=== PATIENT | female | born 1960 | race Caucasian/White ===

== ENCOUNTER 2017-10-03 03:04 | Observation (INO) ==
[2017-10-03] MEDS ORDERED: 0.9 % Sodium Chloride 1,000 ML IVC ONE (03:12)
--- NOTE | 2017-10-03 03:28 | Emergency Department Note ---
Disposition Clinical Impression: Elevated LFTs, History of cirrhosis of liver, Tachycardia with heart rate 100- 120 beats per minute, Dehydration, Acute electrocardiogram changes Alcohol intoxication Qualifiers: Complication of substance-induced condition: with unspecified complication Qualified Code(s): F10.929 - Alcohol use, unspecified with intoxication, unspecified Disposition: Admitted As Inpatient Condition: Undetermined General Adult HPI - General Chief complaint: ED General Medical Stated complaint: multi complaints Time Seen by Provider: 10/03/17 03:12 Source: patient, EMS Mode of arrival: EMS Limitations: altered mental status Nursing Notes Reviewed: Yes Vital Signs Reviewed: Yes - History of Present Illness Pt Subjective Complaint: ear pain, weak all over, cough, not able to get medications Onset (ago): week(s) Location: other (Right ear) Radiation: non-radiation Pain Severity: moderate, severe Quality: stabbing, sharp Consistency: constant Improves with: nothing Worsens with: nothing Associated symptoms: Reports: malaise. Denies: confusion, chest pain, cough, diaphoresis, fever/chills, headaches, loss of appetite, nausea/vomiting, rash, seizure, shortness of breath, syncope, weakness Treatments Prior to Arrival: none - Related Data Home Medications Medication Instructions Recorded Confirmed Estrogen,Con/M-Progest Acet 1 each PO DAILY 09/29/15 09/29/15 [Prempro 0.45-1.5 mg Tablet] Metoclopramide [Reglan] 10 mg PO TID 09/29/15 09/29/15 Rabeprazole Sodium [Aciphex] 20 mg PO DAILY 09/29/15 09/29/15 Sertraline [Zoloft] 200 mg PO DAILY 09/29/15 09/29/15 Previous Rx's Medication Instructions Recorded Lactulose 20 gm PO BID 30 Days mls 10/10/15 LevETIRAcetam [Keppra] 500 mg PO BID #60 tablet 10/10/15 Oxycodone HCl [Oxaydo] 5 mg PO Q8H PRN #30 tablet.orl 10/10/15 Prednisolone Sod Phosphate 10 mg PO DAILY #21 tab.rapdis 10/10/15 [Orapred Odt] Rifaximin [Xifaxan] 400 mg PO TID #90 tablet 10/10/15 Allergies Allergy/AdvReac Type Severity Reaction Status Date / Time No Known Allergies Allergy Verified 09/29/15 07:55 All systems ED: reviewed and negative except as stated. Review of Systems: As Per HPI Constitutional: Reports: fever ("I am burning up inside." Per patient). Denies : chills, weakness, weight change, night sweats Eyes: Denies: eye pain, eye discharge, vision change ENT ED: Reports: as per HPI, ear pain. Denies: throat pain, dental pain, hearing loss, epistaxis, congestion, dysphagia Cardiovascular: Denies: chest pain, palpitations, dyspnea on exertion, orthopnea , edema, syncope, paroxysmal nocturnal dyspnea Respiratory: Denies: cough, dyspnea, wheezes, hemoptysis, stridor, sputum production Gastrointestinal: Denies: abdominal pain, nausea, vomiting, diarrhea, constipation, hematemesis, melena, hematochezia, other Genitourinary: Denies: urgency, dysuria, frequency Musculoskeletal: Denies: back pain, neck pain, joint swelling Integumentary: Denies: rash, abrasion, lesions Neurological: Denies: headache, weakness, numbness, paresthesias, vertigo Hematological/Lymphatic: Denies: easy bleeding, easy bruising, lymphadenopathy Past Medical History - Past Medical History Attestation: Yes The following information was validated with the patient. 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 Absent: scleral icterus, conjunctival injection, nystagmus, miosis, mydriasis, periorbital swelling, periorbital tenderness - ENT ENT exam: mucous membranes dry - Neck Neck exam: Present: normal inspection, full ROM, trachea midline. Absent: tenderness, meningismus, lymphadenopathy - Chest Chest inspection: Present: normal inspection, symmetric chest wall rise - Respiratory Respiratory exam: Present: normal lung sounds bilaterally. Absent: respiratory distress, wheezes, stridor - Cardiovascular Cardiovascular exam: Present: normal rhythm, tachycardia, normal heart sounds - Abdominal Exam Abdominal exam: Present: soft, Non-Tender, normal bowel sounds. Absent: distention, guarding, rebound, rigidity, organomegaly, mass, pulsatile mass - Extremities Exam Extremities exam: Present: full ROM, normal capillary refill. Absent: tenderness - Back Exam Back exam: Present: normal inspection, full ROM. Absent: tenderness - Neurological Exam Neurological exam: Present: alert, oriented X3, CN II-XII intact, normal gait. Absent: motor sensory deficit - Psychiatric Psychiatric exam: Present: normal affect, normal mood - Skin Skin exam: Present: warm, dry, intact, normal color, rash - Expanded Skin Exam Type of lesion: Present: rash (Diffusely scattered hyperpigmented circular dark lesions on the legs bilaterally). Absent: abscess Distribution: LLE, RLE Description: Present: size (Average size. The lesion is .05cm), macular. Absent: tenderness, erythematous, swelling, papular, vesicular, blisters, confluent, bullous, petechial, purpuric, urticarial, crusting, discharge, fluctuant, indurated Course Course Narrative: Patient presents from home by squad for evaluation of myriad complaints. She describes lesions on her legs (Chronic but worse), right ear pain, feeling "feverish", nauseated, decreased appetite, and out of all medications for a month. She says, "I'm just done." When asked if she means she wants to she says no. She denies SI currently or history of. She states that she just doesn' t want to have to take medications any more. She is slow to respond and is easily agitated. She seems mildly confused. She is afebrile with no meningeal signs. She has a slight effusion of right middle ear. She has a wet cough but clear breath sounds, normal sats, normal resp rate, and no peripheral edema. Heart rate is tachycardic. No mumur. No c/o chest pain, HEIDI or WEEMS. Abdomen is soft and non-tender with hepatomegally. She ambulates to and from the bathroom without assistance or complications. CT of the head, CXR, EKG, labs and pain meds ordered. CT shows no mass or bleed. She has sinusitis. CXR is normal per rad. EKG shows new t-wave inversions and 1mm of ST depression. These are new c/w 2014. Patient has no chest pain. Troponin is normal. LFT's are elevated. Urine has 80 of ketones. ETOH is >170. Drug screen is positive for BZD. Patient was prescribed Valium and Oxycodone by a single practice group for the past year. 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 Some of her symptoms could be due to withdrawal. Given the patient's EKG changes, multiple comorbidities and dehydration, we feel that admission for observation and treatment are indicated. She has been seen by Dr. Pisano. He agrees with the assessment and plan. Medical Decision Making - Medical Records Medical records reviewed: Yes I reviewed the patient's medical records. - Lab Data Lab results reviewed: Yes I reviewed the patient's lab results. Lab results narrative: Laboratory Last Values WBC 7.8 K/mcL (4.3-11.1) 10/03/17 03:50 RBC 4.20 M/mcL (3.82-4.97) 10/03/17 03:50 Hgb 13.3 g/dL (11.5-15.4) 10/03/17 03:50 Hct 39.7 % (35.3-44.9) 10/03/17 03:50 MCV 94.5 fL (83.0-100.0) 10/03/17 03:50 MCH 31.7 pg (28.0-33.3) 10/03/17 03:50 MCHC 33.5 g/dL (31.6-35.5) 10/03/17 03:50 RDW 13.3 % (11.5-14.5) 10/03/17 03:50 Plt Count 185 K/mcL (140-400) 10/03/17 03:50 MPV 11.1 fL (9.4-12.4) 10/03/17 03:50 Immature Gran % 0.5 % (0-4) 10/03/17 03:50 Seg Neutrophils % 52.8 % 10/03/17 03:50 Lymphocytes % 39.7 % 10/03/17 03:50 Monocytes % 5.5 % 10/03/17 03:50 Eosinophils % 0.6 % 10/03/17 03:50 Basophils % 0.9 % 10/03/17 03:50 Neutrophils # 4.1 K/mcL (1.6-8.9) 10/03/17 03:50 Lymphocytes # 3.1 K/mcL (0.6-4.6) 10/03/17 03:50 Monocytes # 0.4 K/mcL (0.0-1.3) 10/03/17 03:50 Eosinophils # 0.1 K/mcL (0.0-0.6) 10/03/17 03:50 Basophils # 0.1 K/mcL (0.0-0.2) 10/03/17 03:50 PT 11.0 Seconds (9.4-12.1) 10/03/17 03:50 INR 1.0 10/03/17 03:50 APTT 28.9 Seconds (26.0-36.0) 10/03/17 03:50 Sodium 138 mEq/L (136-145) 10/03/17 04:12 Potassium 3.9 mEq/L (3.5-4.5) 10/03/17 04:12 Chloride 97 mEq/L (98-109) L 10/03/17 04:12 Carbon Dioxide 13 mEq/L (19-29) L 10/03/17 04:12 BUN 18 mg/dL (7-20) 10/03/17 04:12 Creatinine 0.63 mg/dL (0.57-1.11) 10/03/17 04:12 Est GFR ( Amer) > 60 (> 60) 10/03/17 04:12 Est GFR (Non-Af Amer) > 60 (> 60) 10/03/17 04:12 BUN/Creatinine Ratio 29 (6-26) H 10/03/17 04:12 Glucose 78 mg/dL (70-99) 10/03/17 04:12 POC Glucose 83 (58-89) 10/03/17 03:31 Calculated Osmolality 287 (280-300) 10/03/17 04:12 Calcium 9.0 mg/dL (8.6-10.8) 10/03/17 04:12 Total Bilirubin 1.9 mg/dL (0.2-1.2) H 10/03/17 04:12 Direct Bilirubin 1.0 mg/dL (0.0-0.5) H 10/03/17 04:12 Indirect Bilirubin 0.9 mg/dL (0.0-1.2) 10/03/17 04:12 AST 75 Units/L (5-34) H 10/03/17 04:12 ALT 36 Units/L (0-55) 10/03/17 04:12 Alkaline Phosphatase 174 Units/L (38-126) H 10/03/17 04:12 Ammonia 29 mcmol/L (18-72) 10/03/17 04:12 Troponin I 0.01 ng/mL (0-0.03) 10/03/17 04:12 Serum Total Protein 7.9 g/dL (6.0-8.3) 10/03/17 04:12 Albumin 4.2 g/dL (3.5-5.0) 10/03/17 04:12 Globulin 3.7 g/dL (2.4-3.5) H 10/03/17 04:12 Albumin/Globulin Ratio 1.1 (1.1-2.2) 10/03/17 04:12 TSH 0.414 mcIU/mL (0.350-4.840) 10/03/17 04:12 Urine Color Dark Yellow (Yellow) 10/03/17 03:40 Urine Clarity Clear (Clear) 10/03/17 03:40 Urine pH 6.0 pH Units (5.0-8.0) 10/03/17 03:40 Ur Specific [place] 1.030 (1.010-1.025) H 10/03/17 03:40 Urine Protein 100 mg/dL (Neg-Trace) H 10/03/17 03:40 Urine Glucose (UA) Normal mg/dL (Normal) 10/03/17 03:40 Urine Ketones 80 mg/dL (Negative) H 10/03/17 03:40 Urine Blood Negative (Negative) 10/03/17 03:40 Urine Nitrite Negative (Negative) 10/03/17 03:40 Urine Bilirubin Negative (Negative) 10/03/17 03:40 Urine Urobilinogen Normal mg/dL (Normal) 10/03/17 03:40 Ur Leukocyte Esterase Negative (Negative) 10/03/17 03:40 Urine Microscopic RBC 0-3 per hpf (0-3) 10/03/17 03:40 Urine Microscopic WBC 0-3 per hpf (0-3) 10/03/17 03:40 Ur Squamous Epith Cells Few per lpf (None-Few) 10/03/17 03:40 Urine Bacteria None Seen per hpf (None-Few) 10/03/17 03:40 Hyaline Casts None Seen per lpf (None-Few) 10/03/17 03:40 Ur Culture Indicated? NO (NO) 10/03/17 03:40 Urine Opiates Screen Negative ng/mL (Qurkkf=539) 10/03/17 03:40 Ur Barbiturates Screen Negative ng/mL (Dbklja=949) 10/03/17 03:40 Ur Phencyclidine Scrn Negative ng/mL (Cutoff=25) 10/03/17 03:40 Ur Amphetamines Screen Negative ng/mL (Spfttr=2162) 10/03/17 03:40 U Benzodiazepines Scrn Positive ng/mL (Nyjxzs=930) H 10/03/17 03:40 Urine Cocaine Screen Negative ng/mL (Cutoff= 300) 10/03/17 03:40 U Marijuana (THC) Screen Negative ng/mL (Cutoff = 50) 10/03/17 03:40 Ethyl Alcohol 177 mg/dL (0-10) H 10/03/17 04:12 - Radiology Data Radiology results reviewed: Yes I reviewed the patient's radiology results. Chest X-Ray 10/03/17 03:12 IMPRESSION: No acute disease. D/ / Aubrey Pierce MD / Aubrey Pierce MD Interpreting Provider: Aubrey Pierce MD Head CT 10/03/17 03:29 IMPRESSION: No acute intracranial abnormality. Right sphenoid and ethmoid sinus disease. D/ / Aubrey Pierce MD / Aubrey Pierce MD Interpreting Provider: Aubrey Pierce MD - EKG Data EKG #1 EKG attestation: Yes I reviewed and interpreted this EKG. EKG shows normal: sinus rhythm Rate: tachycardia Rhythm: NSR [place]/QRS: normal T wave inversions noted in: II, III, aVF, v3, v4, v5, v6 When compared to previous EKG there are: changes noted Interpretation: nonspecific ST-T wave changes
[2017-10-03] MEDS ORDERED: *HR* OxyCODONE Immed Rel 5 MG TABLET PO ONE (03:32)
[2017-10-03 03:50] LABS: Bilirubin,Urine Negative (Negative); Blood,Urine Negative (Negative); Clarity,Urine Clear (Clear); Color,Urine Dark Yellow (Yellow); Glucose,Urine (UA) Normal (Normal); Ketones,Urine 80 mg/dL (Negative); Leukocyte Esterase,Urine Negative (Negative); Nitrite,Urine Negative (Negative); Protein,Urine 100 mg/dL (Neg-Trace); Urobilinogen,Urine Normal (Normal)
[2017-10-03 03:51] LABS: Bacteria,Urine None Seen per hpf (None-Few); Hyaline Casts,Urine None Seen per lpf (None-Few); RBC,Urine 0-3 per hpf (0-3); Squamous Epithelial Cell,Urine Few per lpf (None-Few); WBC,Urine 0-3 per hpf (0-3)
[2017-10-03 03:56] LABS: Amphetamine Screen,Urine Negative ng/mL (Cutoff=1000); Barbiturate Screen,Urine Negative ng/mL (Cutoff=200); Benzodiazepines Screen,Urine Positive ng/mL (Cutoff=200); Cannabinoid Screen,Urine Negative ng/mL (Cutoff = 50); Cocaine Screen,Urine Negative ng/mL (Cutoff= 300); Opiate Screen,Urine Negative ng/mL (Cutoff=300); Phencyclidine Screen,Urine Negative ng/mL (Cutoff=25)
[2017-10-03 04:10] LABS: Basophils # 0.1 K/mcL (0.0-0.2); Basophils % 0.9 %; Eosinophils # 0.1 K/mcL (0.0-0.6); Eosinophils % 0.6 %; Hematocrit 39.7 % (35.3-44.9); Hemoglobin 13.3 g/dL (11.5-15.4); Immature Granulocytes % 0.5 % (0-4); Lymphocytes # 3.1 K/mcL (0.6-4.6); Lymphocytes % 39.7 %; Mean Corpuscular HGB Conc 33.5 g/dL (31.6-35.5); Mean Corpuscular Hemoglobin 31.7 pg (28.0-33.3); Mean Corpuscular Volume 94.5 fL (83.0-100.0); Mean Platelet Volume 11.1 fL (9.4-12.4); Monocytes # 0.4 K/mcL (0.0-1.3); Monocytes % 5.5 %; Neutrophils # 4.1 K/mcL (1.6-8.9); Platelet Count 185 K/mcL (140-400); Red Cell Distribution Width 13.3 % (11.5-14.5); Segmented Neutrophils % 52.8 %
[2017-10-03 04:19] LABS: Activated Partial Thrombo Time 28.9 Seconds (26.0-36.0)
[2017-10-03 04:37] LABS: Alanine Aminotransferase 36 Units/L (0-55); Albumin 4.2 g/dL (3.5-5.0); Albumin/Globulin Ratio 1.1 (1.1-2.2); Alkaline Phosphatase 174 Units/L (38-126); Aspartate Amino Transferase 75 Units/L (5-34); BUN/Creatinine Ratio 29 (6-26); Bilirubin,Indirect 0.9 mg/dL (0.0-1.2); Bilirubin,Total 1.9 mg/dL (0.2-1.2); Blood Urea Nitrogen 18 mg/dL (7-20); Carbon Dioxide 13 mEq/L (19-29); Chloride 97 mEq/L (98-109); Ethanol 177 mg/dL (0-10); Globulin 3.7 g/dL (2.4-3.5); Glucose 78 mg/dL (70-99); Osmolality,Calculated 287 (280-300); Potassium 3.9 mEq/L (3.5-4.5); Sodium 138 mEq/L (136-145); Total Protein 7.9 g/dL (6.0-8.3); eGFR For African Americans > 60 (> 60); eGFR For Non-African Americans > 60 (> 60)
[2017-10-03 04:58] LABS: Thyroid Stimulating Hormone 0.414 mcIU/mL (0.350-4.840)
[2017-10-03] MEDS ORDERED: diazePAM 10 MG TABLET PO ONE (06:12)
[2017-10-03] MEDS ORDERED: *HR* LORazepam 2 MG/ML VIAL IVP ONE (10:10)
[2017-10-03] MEDS ORDERED: Ketorolac 30 MG/ML VIAL IVP ONE (10:45)
[2017-10-03] MEDS ORDERED: Naloxone 0.4 MG/ML INJ IVP PRN (13:04)
--- NOTE | 2017-10-03 13:17 | Internal Med History&Physical ---
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 Qualifiers: Qualified Code(s): F10.929 - Alcohol use, unspecified with intoxication, unspecified (2) Altered sensation, foot Current visit: Yes Status: Acute -Suspect alcohol related; neuropathy (vitamin B12/folate deficiency) -Will consult physical therapy and appreciate recommendations. (3) History of cirrhosis of liver Current visit: Yes Status: Acute -Elevated transaminases secondary to alcoholic cirrhosis. (4) DVT prophylaxis Current visit: No Status: Acute -Subcutaneous heparin. Internal Medicine - H&P: HPI Chief complaint: Lower extremity altered sensation Admitted From: Home Plans for Post Hospital Care: Home History of present illness: Patient is a 57-year-old female with past medical history significant for liver cirrhosis secondary to alcohol dependence/abuse, GERD, COPD and seizures who presents to the ER on 10/03/17 with alcohol intoxication/withdrawal symptoms. Patient reports of having altered sensation in her bilateral lower extremities for the last several months which is constant with no provoking or relieving factors. Patient reports this makes ambulation difficult. Patient reports a negative workup by primary care provider. Patient does report drinking a half a pint of whiskey per day for the last couple years. In the ER, urine tox showed elevated alcohol levels and positive for benzos. Patient will be admitted to the medical surgical floor for alcohol withdrawal. Past Med Surg Social Fam HX - Past Medical History Medical history: arthritis, cirrhosis, COPD, GERD, GI bleed, liver disease, osteoporosis, seizures, other Psychiatric history: anxiety, depression - Past Surgical History Surgical History: breast surgery - Social History Smoking Status: Current every day smoker Packs per day: 1/2 Smokeless Tobacco Status: No Alcohol use: heavy Drug use: prescription drug abuse - Family History Mother Adopted: No Living Status: Still Living Hx Family Cardiac Disorders: Yes Internal Medicine - H&P: Meds No Known Home Drugs 10/03/17 [History] 3 Allergy/AdvReac Type Severity Reaction Status Date / Time No Known Allergies Allergy Verified 09/29/15 07:55 All Systems PM: A 10-system review of systems was performed and is negative for pertinent findings except as documented above in the HPI. - Constitutional Vitals: Temp Pulse Resp BP Pulse Ox 97.6 F 94 17 118/72 98 10/03/17 12:20 10/03/17 12:20 10/03/17 12:20 10/03/17 12:20 10/03/17 12:20 General appearance: Present: A&O X 3, no acute distress - Eye Eye exam: Present: normal appearance - ENT ENT exam: Present: mucous membranes dry - Respiratory Respiratory exam: Present: CTAB. Absent: accessory muscle use, rales, rhonchi, wheezes - Cardiovascular Cardiovascular exam: Present: RRR, +S1, +S2. Absent: diastolic murmur, gallop, rubs, systolic murmur - GI/Abdominal GI/Abdominal exam: Present: normal bowel sounds, soft, no peritoneal signs. Absent: distended, tenderness - Extremities Exam Extremities exam: Absent: pedal edema - Neurological Exam Neurological exam: Present: oriented X3 - Psychiatric Psychiatric exam: Present: normal mood - Skin Skin exam: Present: normal color Internal Med - H&P Results - Labs CBC & Chem 7: 10/03/17 03:50 10/03/17 04:12
[2017-10-03] MEDS: *HR* Heparin 5,000 UNIT/ML VIAL SQ SCH ×2 (14:12→21:49)
[2017-10-03] MEDS ORDERED: *HR* Promethazine 25 MG/ML VIAL IVP PRN (15:10)
[2017-10-03] MEDS ORDERED: *HR* LORazepam 2 MG/ML VIAL IVP PRN ×2 (15:10)
[2017-10-03] MEDS: Ketorolac 30 MG/ML VIAL IVP PRN (17:06)
[2017-10-03] MEDS: *HR* LORazepam 2 MG/ML VIAL IVP PRN (17:06)
[2017-10-04] MEDS: *HR* LORazepam 2 MG/ML VIAL IVP PRN ×2 (00:13→04:13)
[2017-10-04] MEDS: Ketorolac 30 MG/ML VIAL IVP PRN (02:13)
[2017-10-04] MEDS: *HR* Heparin 5,000 UNIT/ML VIAL SQ SCH ×2 (04:57→13:30)
[2017-10-04 06:17] LABS: Basophils % 0.3 %; Eosinophils # 0.1 K/mcL (0.0-0.6); Eosinophils % 2.1 %; Hematocrit 28.7 % (35.3-44.9); Immature Granulocytes % 0.6 % (0-4); Lymphocytes # 1.3 K/mcL (0.6-4.6); Lymphocytes % 37.8 %; Mean Corpuscular HGB Conc 34.8 g/dL (31.6-35.5); Mean Corpuscular Hemoglobin 32.3 pg (28.0-33.3); Mean Corpuscular Volume 92.6 fL (83.0-100.0); Monocytes # 0.3 K/mcL (0.0-1.3); Monocytes % 7.4 %; Neutrophils # 1.8 K/mcL (1.6-8.9); Nucleated Red Blood Cells 0.6 /100 WBC (0); Platelet Count 102 K/mcL (140-400); Red Cell Distribution Width 12.7 % (11.5-14.5); Segmented Neutrophils % 51.8 %
[2017-10-04 06:34] LABS: BUN/Creatinine Ratio 22 (6-26); Blood Urea Nitrogen 13 mg/dL (7-20); Calcium 9.3 mg/dL (8.6-10.8); Carbon Dioxide 25 mEq/L (19-29); Chloride 94 mEq/L (98-109); Glucose 124 mg/dL (70-99); Osmolality,Calculated 276 (280-300); Potassium 3.2 mEq/L (3.5-4.5); Sodium 132 mEq/L (136-145); eGFR For African Americans > 60 (> 60); eGFR For Non-African Americans > 60 (> 60)
--- NOTE | 2017-10-04 14:10 | Electrocardiograph Report ---
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
--- NOTE | 2017-10-04 14:53 | Internal Med Progress Note ---
Date of Encounter: 10/04/17 Time of Encounter: 14:48 - Assessment and plan (1) Alcohol intoxication Current Visit: Yes Status: Acute Assessment and plan: drinks Etoh daily. Last drink day of presentation. Patient reports hx DT, denies seizures. Cont to monitor with CIWA. Anticipate discharge 10/05 if she does not trigger CIWA overnight Qualifiers: Qualified Code(s): F10.929 - Alcohol use, unspecified with intoxication, unspecified (2) Neuropathy Current Visit: Yes Status: Acute Assessment and plan: with numbness and tingling to bilateral lower extremities. Possibly secondary to vitamin B12/folate deficiency. Start low-dose Neurontin. Vitamin B12 and folate levels pending. (3) History of cirrhosis of liver Current Visit: Yes Status: Acute Assessment and plan: per hx. LFTs elevated but stable. Can follow up outpatient as previously planned. (4) DVT prophylaxis Current Visit: No Status: Acute Assessment and plan: heparin - Subjective Interval history: Seen and examined at bedside. Patient is new to me. Information obtained from chart review and patient report. Patient says she feels somewhat better, still with lower extremity numbness and tingling. - Constitutional Vitals: Temp Pulse Resp BP Pulse Ox 97.9 F 99 14 113/76 99 10/04/17 07:32 10/04/17 07:32 10/04/17 07:32 10/04/17 07:32 10/04/17 09:48 General appearance: Present: A&O X 3, no acute distress - Head Head exam: Present: atraumatic, normocephalic - Eye Eye exam: Present: PERRL, conjuntiva pink, sclera anicteric Pupils: Present: PERRL - Neck Neck exam general surgery: Present: supple, trachea midline. Absent: lymphadenopathy - Respiratory Respiratory exam: Present: CTAB. Absent: accessory muscle use, rales, rhonchi, wheezes - Cardiovascular Cardiovascular exam: Present: RRR, +S1, +S2. Absent: diastolic murmur, gallop, rubs, systolic murmur - GI/Abdominal GI/Abdominal exam: Present: normal bowel sounds, soft, no peritoneal signs. Absent: distended, tenderness - Extremities Exam Extremities exam: Present: warm, radial pulses palpable and symmetrical. Absent : calf tenderness, cyanotic, pedal edema - Neurological Exam Neurological exam: Present: CN II-XII intact, oriented X3, no focal deficits. Absent: pronater drift, facial droop, speech deficit - Skin Skin exam: Present: dry, intact Internal Medicine: Result - Labs CBC & Chem 7: 10/04/17 05:23 10/04/17 05:23 Labs: Short CBC 10/04/17 Range/Units 05:23 WBC 3.4 L D (4.3-11.1) K/mcL Hgb 10.0 L D (11.5-15.4) g/dL Hct 28.7 L (35.3-44.9) % Plt Count 102 L (140-400) K/mcL Neutrophils # 1.8 (1.6-8.9) K/mcL BMP 10/04/17 05:23 Sodium 132 L Potassium 3.2 L Chloride 94 L Carbon Dioxide 25 BUN 13 Creatinine 0.60 Glucose 124 H Calcium 9.3 - ABG Interpretation ABG results: PT/INR, D-dimer PT 11.0 Seconds (9.4-12.1) 10/03/17 03:50 Consult Discharge Plan - Plan Referrals: NONE,PCP [Primary Care Provider] -
[2017-10-04] MEDS ORDERED: Gabapentin 100 MG CAPSULE PO SCH (21:00)
[2017-10-05] MEDS: Ketorolac 30 MG/ML VIAL IVP PRN (04:12)
[2017-10-05] MEDS: *HR* Heparin 5,000 UNIT/ML VIAL SQ SCH (04:13)
[2017-10-05 05:06] LABS: Hematocrit 28.5 % (35.3-44.9); Immature Platelets 6.6 % (1.1-6.1); Mean Corpuscular HGB Conc 35.1 g/dL (31.6-35.5); Mean Corpuscular Hemoglobin 32.3 pg (28.0-33.3); Mean Corpuscular Volume 91.9 fL (83.0-100.0); Mean Platelet Volume 10.3 fL (9.4-12.4); Red Blood Count 3.1 M/mcL (3.82-4.97); Red Cell Distribution Width 12.7 % (11.5-14.5)
[2017-10-05 05:14] LABS: INR 1.1; Prothrombin Time 11.4 Seconds (9.4-12.1)
[2017-10-05 05:22] LABS: Alanine Aminotransferase 26 Units/L (0-55); Albumin 3.8 g/dL (3.5-5.0); Albumin/Globulin Ratio 1.3 (1.1-2.2); Alkaline Phosphatase 144 Units/L (38-126); Aspartate Amino Transferase 57 Units/L (5-34); BUN/Creatinine Ratio 16 (6-26); Bilirubin,Total 1.6 mg/dL (0.2-1.2); Blood Urea Nitrogen 10 mg/dL (7-20); Calcium 9.6 mg/dL (8.6-10.8); Carbon Dioxide 27 mEq/L (19-29); Chloride 96 mEq/L (98-109); Globulin 2.9 g/dL (2.4-3.5); Glucose 107 mg/dL (70-99); Osmolality,Calculated 278 (280-300); Potassium 3.7 mEq/L (3.5-4.5); Sodium 134 mEq/L (136-145); Total Protein 6.7 g/dL (6.0-8.3); eGFR For African Americans > 60 (> 60); eGFR For Non-African Americans > 60 (> 60)
[2017-10-05 05:51] LABS: Folate 2.8 ng/mL (7.0-31.4)
[2017-10-05 07:49] VITALS: BP 101/69
--- NOTE | 2017-10-05 11:46 | Discharge Summary ---
Date of Encounter: 10/05/17 Time of Encounter: 11:44 - Discharge Diagnosis (1) Alcohol intoxication Priority: Primary Status: Acute Comments: drinks Etoh daily. Last drink day of presentation. Patient reports hx DT, denies seizures. Monitored with CIWA. Denies withdrawal sx's at time of discharge. Cessation encouraged but not likely. Qualifiers: Qualified Code(s): F10.929 - Alcohol use, unspecified with intoxication, unspecified (2) Neuropathy Priority: Primary Status: Acute Comments: suspected with numbness and tingling to lower extremity. Start low dose gabapentin (3) History of cirrhosis of liver Priority: Secondary Status: Chronic Comments: per hx. LFTs elevated but stable. Can follow up outpatient - Discharge Medications Prescriptions: Gabapentin [Neurontin] 100 mg PO HS #30 capsule Home Medications: Gabapentin [Neurontin] 100 mg PO HS #30 capsule 10/05/17 [Rx] Allergies/Adverse Reactions: 3 Allergy/AdvReac Type Severity Reaction Status Date / Time No Known Allergies Allergy Verified 09/29/15 07:55 Date of admission: 10/03/17 07:42 Primary care physician: PCP NONE Consults: 10/03/17 10:35 Consult to [employer] [CONS] Routine Reason for SW Consult: possible need for ECF. very weak on feet and can barely stand or even take a few steps. here for alcohol withdrawal. 10/03/17 10:36 Consult to Physical Therapy [CONS] Routine Comment: Evaluate, develop and implement POC Reason for Consult: possible need for placement. Can barely stand or take a few steps. 10/03/17 10:37 Consult to Occupational Therapy [CONS] Routine Comment: Evaluate, develop and implement POC Reason for Consult: ECF placement possibly. Can barely stand or take a few steps. Discharging clinician: Nickie Pimentel Anticipated date of discharge: 10/05/17 - Patient Status Disposition: Home, Self-Care Condition: Good Functional capacity at discharge: independent ambulation Overall status at discharge: patient is back to baseline - Discharge Instructions Instructions: Generalized Anxiety Disorder (DC), Alcohol Intoxication (DC), Abuse of Alcohol (DC) Follow Up With: NONE,PCP [Primary Care Provider] - - Diet and Activity Activity: increase activity as tolerated Interval History: Seen and examined at bedside; patient appears anxious. Says she wants to go home and smoke. Denies withdrawal sx's. Says she has anxiety baseline and not smoking makes anxiety worse. Has intermittent nausea and emesis this morning which she thinks is due to her anxiety. No CP, no SOB. Hospital course: See assessment and plan for hospital course - Time Spent with Patient Total time spent providing and/or coordinating discharge services: - Constitutional Vitals: Temp Pulse Resp BP Pulse Ox 97.6 F 82 16 101/69 100 10/05/17 07:48 10/05/17 07:48 10/05/17 07:48 10/05/17 07:48 10/05/17 08:03 General appearance: Present: disheveled, A&O X 3, no acute distress - Head Head exam: Present: atraumatic, normocephalic - Eye Eye exam: Present: PERRL, conjuntiva pink, sclera anicteric Pupils: Present: PERRL - Neck Neck exam general surgery: Present: supple, trachea midline. Absent: lymphadenopathy - Respiratory Respiratory exam: Present: CTAB. Absent: accessory muscle use, rales, rhonchi, wheezes - Cardiovascular Cardiovascular exam: Present: RRR, +S1, +S2. Absent: diastolic murmur, gallop, rubs, systolic murmur - GI/Abdominal GI/Abdominal exam: Present: normal bowel sounds, soft, no peritoneal signs. Absent: distended, tenderness - Extremities Exam Extremities exam: Present: warm, radial pulses palpable and symmetrical. Absent : calf tenderness, cyanotic, pedal edema - Neurological Exam Neurological exam: Present: CN II-XII intact, oriented X3, no focal deficits. Absent: pronater drift, facial droop, speech deficit - Skin Skin exam: Present: dry, intact
== END 2017-10-05 13:06 | disposition home or self-care (01) ==
LOC: EMEROO 03:04 → 3BNU 03:04
PROVIDERS: ADMIT Registered Nurse; ATTEND Registered Nurse

== ENCOUNTER 2018-08-15 13:10 | Inpatient (IN) ==
[2018-08-15] MEDS ORDERED: 0.9 % Sodium Chloride 1,000 ML IVC ONE (13:57)
[2018-08-15] MEDS ORDERED: Ondansetron 4 MG/2 ML VIAL IVP ONE (13:57)
--- NOTE | 2018-08-15 14:27 | Emergency Department Note ---
Addendum entered and electronically signed by Haresh Combs DO 08/15/18 20:00: Patient accepted for admission by Dr. Rodriguez for sepsis secondary to C. diff and DKA. No further orders at this time. Original Note: Disposition Clinical Impression: Hyponatremia, Dehydration, Acute kidney injury, Nausea vomiting and diarrhea, C. difficile diarrhea Diabetic ketoacidosis Qualifiers: Diabetes mellitus type: other specified (including RICARDO) Diabetes mellitus complication detail: without coma Qualified Code(s): E13.10 - Other specified diabetes mellitus with ketoacidosis without coma Disposition: Admitted As Inpatient Condition: Good Referrals: Simran Kauffman [Primary Care Provider] - Forms: ED Satisfaction Letter Time of Disposition: 18:44 Nausea/Vomiting/Diarrhea HPI - General Chief complaint: ED Nausea/Vomiting/Diarrhea Stated complaint: nausea, vomiting, diearrhea Time Seen by Provider: 08/15/18 13:21 Source: patient, EMS Mode of arrival: EMS Limitations: no limitations Nursing Notes Reviewed: Yes Vital Signs Reviewed: Yes - History of Present Illness HPI Narrative: 58-year-old female history of depression and anxiety and chronic pain presents emergency department with nausea vomiting and diarrhea. States the symptoms have been ongoing for the past 4 days. Initially started 4 days ago with loose stools up to 15 episodes that has been consistent into today. She also has had associated nausea with vomiting. Denies any bloody stool, black tarry stool, hematemesis. Her nausea has improved today to where she was able to tolerate water. She denies any associated abdominal pain. She denies any injury or trauma. Denies any fever cough or congestion. No recent hospitalization, recent travel, camping or antibiotic use. She lives at home with her dog in denies any other sick contacts. She does admit that she has not been taking her medications which does also include oxycodone the last administration was reportedly 6 weeks ago. She called her primary care physician Dr. Julianne Kauffman in [place] earlier today. Reports prior history of chronic alcohol use but none recently. No reported history of liver disease or cirrhosis. No history of cardiac ischemic disease. Denies any chest pain or shortness of breath. She thinks it could be due to stress as her recently passed from small cell lung CA in Jun 2018. Pt Subjective Complaint: nausea, vomiting, diarrhea - Related Data Home Medications Medication Instructions Recorded Confirmed Oxycodone HCl 08/15/18 Rabeprazole Sodium [Aciphex] 20 mg PO DAILY 08/15/18 08/15/18 Zoloft 08/15/18 diazePAM [Valium] 10 mg PO BID 08/15/18 08/15/18 Allergies Allergy/AdvReac Type Severity Reaction Status Date / Time No Known Allergies Allergy Verified 09/29/15 07:55 All systems ED: reviewed and negative except as stated. Review of Systems: As Per HPI Constitutional: Denies: fever, chills, weakness, weight change ENT ED: Denies: congestion Cardiovascular: Denies: chest pain Respiratory: Denies: cough, dyspnea Gastrointestinal: Reports: nausea, vomiting, diarrhea. Denies: abdominal pain, hematemesis, melena, hematochezia Genitourinary: Denies: dysuria, hematuria Musculoskeletal: Reports: back pain. Denies: neck pain Integumentary: Denies: rash Neurological: Denies: headache, weakness, numbness, paresthesias Psychiatric: Denies: anxiety, depression Endocrine: Denies: fatigue Past Medical History - Past Medical History Attestation: Yes The following information was validated with the patient. 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 - Social History Smoking Status: Current every day smoker Smokeless Tobacco Status: No (1 pack/ day) Alcohol use: Reports: heavy Drug use: Reports: prescription drug abuse Physical Exam - General Limitations: no limitations General appearance: alert, in no apparent distress, other (loose stool seen on lower extremities and socks) - Head Head exam: atraumatic, normocephalic, normal inspection - Eye Eye exam: Present: normal appearance, PERRL, EOMI, scleral icterus (mildly) - ENT ENT exam: normal exam, normal oropharynx, mucous membranes dry, TM's normal bilaterally - Neck Neck exam: Present: normal inspection, full ROM, trachea midline - Chest Chest inspection: Present: normal inspection, symmetric chest wall rise. Absent: tenderness - Respiratory Respiratory exam: Present: normal lung sounds bilaterally. Absent: respiratory distress, wheezes - Cardiovascular Cardiovascular exam: Present: regular rate, normal rhythm, normal heart sounds - Abdominal Exam Abdominal exam: Present: soft, Non-Tender, normal bowel sounds. Absent: tenderness, distention, guarding, rebound, rigidity - Extremities Exam Extremities exam: Present: normal inspection, full ROM, normal capillary refill. Absent: tenderness, pedal edema - Neurological Exam Neurological exam: Present: alert, oriented X3 - Psychiatric Psychiatric exam: Present: normal affect, normal mood - Skin Skin exam: Present: warm, dry, intact, normal color. Absent: rash, cyanosis, diaphoresis Course Course Narrative: Patient presents with nausea vomiting diarrhea over the past 4 days. Reports no abdominal pain or fevers. On examination patient's heart rate is 114 in her blood pressure is slightly low systolic 100. She appears in no acute distress. Her oral mucosal membranes are tacky. Her abdomen is soft nontender nondi stended. She has some hint of sclera ictera. She denies any liver disease history. At this time will check labs including lipase to evaluate for dehydration or pancreatitis, IV fluids and Zofran. Reports of elevated blood glucose without diabetes. Suspect this could also possibly be due to medication withdrawal she has not taken anything. A c. diff will be checked as she is covered in loose stool on her lower extremities. - Reevaluation(s) Reevaluation #1: Patient has a critical bicarb of 7. She appears clinically dehydrated. Her creatinine is significantly elevated at 1.2. Her sodium is low at 129. Her blood glucose is also significantly elevated at 257. She denies history of diabetes. Will check a serum ketone level. Her LFTs are also elevated. She does not have a history of cholecystectomy. I attempted a bedside ultrasound to evaluate for cholecystitis but was unable to visualize gallbladder. At this time patient will obtain a CT of the abdomen and pelvis. Patient will likely require admission. Time: 15:57 Reevaluation #2: Anionic gap of 35. Serum ketones positive. VBG shows acidosis 7.28 and had Bicarb 11. Suggest DKA. No obvious source, CXR pending, suspect likely viral gastroenteritis. CT of abdomen revealed calcified pancreas without evidence of radiographic pancreatitis. Patient does not have epigastric tenderness. Her lipase is elevated at 101. Clinically not pancreatitis. Patient has received 2 L NS and will be initiated on insulin gtt and D5 as glucose only 257. Impression Time: 17:36 Reevaluation #3: Patient's Clostridium difficile was positive. Her white count is 11. Her creatinine is less than 1.5. This is nonsevere illness and will treat with oral vancomycin 250 mg. Time: 18:47 Vital Signs Temperature 98.1 F 08/15/18 13:13 Pulse Rate 53 08/15/18 13:13 Respiratory Rate 16 08/15/18 13:13 Blood Pressure 105/84 08/15/18 13:13 O2 Sat by Pulse Oximetry 95 08/15/18 13:13 Temperature 98.1 F 08/15/18 13:13 Pulse Rate 96 08/15/18 16:00 Respiratory Rate 16 08/15/18 16:00 Blood Pressure 130/87 08/15/18 16:00 O2 Sat by Pulse Oximetry 100 08/15/18 16:00 Oxygen Delivery Oxygen Delivery Room Air Nausea/Vomiting/Diarrhea - MDM Narrative Medical decision making narrative: Patient was discussed with my attending physician who agrees with ED management and final disposition. They independently evaluated the patient. Please refer to their attestation to this encounter for additional information. This note was generated by [employer] voice recognition software and as a result grammatical or spelling errors may occur using this program. - Medical Records Medical records reviewed: Yes I reviewed the patient's medical records. - Lab Data Lab results reviewed: Yes I reviewed the patient's lab results. Result diagrams: 08/15/18 14:22 08/15/18 14:22 Lab Results 08/15/18 08/15/18 08/15/18 Range/Units 14:22 14:22 16:24 WBC 11.2 H (4.3-11.1) K/mcL RBC 3.61 L (3.82-4.97) M/mcL Hgb 11.8 (11.5-15.4) g/dL Hct 37.6 (35.3-44.9) % MCV 104.2 H (83.0-100.0) fL MCH 32.7 (28.0-33.3) pg MCHC 31.4 L (31.6-35.5) g/dL RDW 13.7 (11.5-14.5) % Plt Count 110 L (140-400) K/mcL MPV 11.7 (9.4-12.4) fL Immature Gran % 0.7 (0-4) % Seg Neutrophils % 84.4 % Lymphocytes % 8.6 % Monocytes % 5.6 % Eosinophils % 0.5 % Basophils % 0.2 % Neutrophils # 9.4 H (1.6-8.9) K/mcL Lymphocytes # 1.0 (0.6-4.6) K/mcL Monocytes # 0.6 (0.0-1.3) K/mcL Eosinophils # 0.1 (0.0-0.6) K/mcL Basophils # 0.0 (0.0-0.2) K/mcL Nucleated RBCs/100 WBC 0.4 H (0) /100 WBC VBG pH (7.32-7.42) pH Units VBG pCO2 (41-51) mmHg VBG pO2 (25-50) mmHg VBG HCO3 (21-27) mEq/L Sodium 129 L (136-145) mEq/L Potassium 4.8 (3.5-5.1) mEq/L Chloride 87 L (98-107) mEq/L Carbon Dioxide 7 L* (23-29) mEq/L BUN 36 H (6-20) mg/dL Creatinine 1.21 H (0.60-1.20) mg/dL Est GFR ( Amer) 56 L (> 60) Est GFR (Non-Af Amer) 46 L (> 60) BUN/Creatinine Ratio 30 H (6-26) Glucose 257 H (70-105) mg/dL Calculated Osmolality 285 (280-300) Lactic Acid (0.5-2.2) mmol/L Calcium 8.5 L (8.6-10.3) mg/dL Total Bilirubin 3.4 H (0.3-1.0) mg/dL AST 223 H (13-39) Units/L ALT 118 H (7-52) Units/L Alkaline Phosphatase 192 H (34-104) Units/L Serum Total Protein 7.0 (6.4-8.9) g/dL Albumin 4.5 (3.5-5.7) g/dL Globulin 2.5 (2.4-3.5) g/dL Albumin/Globulin Ratio 1.8 (1.1-2.2) Lipase 101 H (11-82) Units/L Beta-Hydroxybutyric Acd > 2.00 H (0.02-0.27) mmol/L Stl C. diff Tox B Gene (Negative) 08/15/18 08/15/18 08/15/18 Range/Units 16:24 16:53 17:14 WBC (4.3-11.1) K/mcL RBC (3.82-4.97) M/mcL Hgb (11.5-15.4) g/dL Hct (35.3-44.9) % MCV (83.0-100.0) fL MCH (28.0-33.3) pg MCHC (31.6-35.5) g/dL RDW (11.5-14.5) % Plt Count (140-400) K/mcL MPV (9.4-12.4) fL Immature Gran % (0-4) % Seg Neutrophils % % Lymphocytes % % Monocytes % % Eosinophils % % Basophils % % Neutrophils # (1.6-8.9) K/mcL Lymphocytes # (0.6-4.6) K/mcL Monocytes # (0.0-1.3) K/mcL Eosinophils # (0.0-0.6) K/mcL Basophils # (0.0-0.2) K/mcL Nucleated RBCs/100 WBC (0) /100 WBC VBG pH 7.28 L (7.32-7.42) pH Units VBG pCO2 24 L (41-51) mmHg VBG pO2 77 H (25-50) mmHg VBG HCO3 11 L (21-27) mEq/L Sodium (136-145) mEq/L Potassium (3.5-5.1) mEq/L Chloride (98-107) mEq/L Carbon Dioxide (23-29) mEq/L BUN (6-20) mg/dL Creatinine (0.60-1.20) mg/dL Est GFR ( Amer) (> 60) Est GFR (Non-Af Amer) (> 60) BUN/Creatinine Ratio (6-26) Glucose (70-105) mg/dL Calculated Osmolality (280-300) Lactic Acid 3.2 H (0.5-2.2) mmol/L Calcium (8.6-10.3) mg/dL Total Bilirubin (0.3-1.0) mg/dL AST (13-39) Units/L ALT (7-52) Units/L Alkaline Phosphatase (34-104) Units/L Serum Total Protein (6.4-8.9) g/dL Albumin (3.5-5.7) g/dL Globulin (2.4-3.5) g/dL Albumin/Globulin Ratio (1.1-2.2) Lipase (11-82) Units/L Beta-Hydroxybutyric Acd (0.02-0.27) mmol/L Stl C. diff Tox B Gene Positive A (Negative) - Radiology Data Radiology results reviewed: Yes I reviewed the patient's radiology results. Abdomen/Pelvis CT 08/15/18 15:41 IMPRESSION: No evidence of acute abnormality in the abdomen or pelvis. Marked diffuse hepatic steatosis. Liver surface nodularity suggests cirrhosis. There is no ascites. Chronic calcific pancreatitis. No findings to suggest acute pancreatitis. Mild nonspecific patchy ground-glass opacity in the lung bases may reflect acute airspace disease or chronic scarring. D/ / Aravind Stearns MD / Aravind Stearns MD Interpreting Provider: Aravind Stearns MD Chest X-Ray 08/15/18 17:28 IMPRESSION: No acute findings. No change. D/ / 08/15/2018 17:58:10 Chet Parks MD / óscar Interpreting Provider: Chet Parks MD
[2018-08-15 14:40] LABS: Basophils % 0.2 %; Eosinophils # 0.1 K/mcL (0.0-0.6); Eosinophils % 0.5 %; Hematocrit 37.6 % (35.3-44.9); Hemoglobin 11.8 g/dL (11.5-15.4); Immature Granulocytes % 0.7 % (0-4); Lymphocytes % 8.6 %; Mean Corpuscular HGB Conc 31.4 g/dL (31.6-35.5); Mean Corpuscular Hemoglobin 32.7 pg (28.0-33.3); Mean Corpuscular Volume 104.2 fL (83.0-100.0); Mean Platelet Volume 11.7 fL (9.4-12.4); Monocytes # 0.6 K/mcL (0.0-1.3); Monocytes % 5.6 %; Neutrophils # 9.4 K/mcL (1.6-8.9); Nucleated Red Blood Cells 0.4 /100 WBC (0); Platelet Count 110 K/mcL (140-400); Red Blood Count 3.61 M/mcL (3.82-4.97); Red Cell Distribution Width 13.7 % (11.5-14.5); Segmented Neutrophils % 84.4 %
[2018-08-15 15:07] LABS: Albumin 4.5 g/dL (3.5-5.7); Albumin/Globulin Ratio 1.8 (1.1-2.2); Bilirubin,Total 3.4 mg/dL (0.3-1.0); Calcium 8.5 mg/dL (8.6-10.3); Globulin 2.5 g/dL (2.4-3.5); Potassium 4.8 mEq/L (3.5-5.1)
[2018-08-15] MEDS ORDERED: 0.9 % Sodium Chloride 1,000 ML ONE (15:44)
[2018-08-15] MEDS: 0.9 % Sodium Chloride 1,000 ML IVC SCH (15:49)
[2018-08-15] MEDS ORDERED: *HR* FentaNYL (PF) 100 MCG/2 ML VIAL IVP ONE (16:07)
[2018-08-15 16:56] LABS: VBG HCO3 11 mEq/L (21-27); VBG PCO2 24 mmHg (41-51); VBG PH 7.28 pH Units (7.32-7.42); VBG PO2 77 mmHg (25-50)
[2018-08-15] MEDS ORDERED: *HR* Dextrose 50 % in Water (Syg) 50 ML SYRINGE IVP PRN (17:31)
[2018-08-15] MEDS ORDERED: Insulin Regular, Human 100 UNIT/ML IV PRN (17:31)
[2018-08-15] MEDS ORDERED: Insulin Human Regular 100 UNIT in 0.9 % Sodium Chloride 100 ML IVC SCH (17:45)
[2018-08-15] MEDS ORDERED: Vancomycin Oral Soln 125 MG/2.5 ML UDC PO ONE (18:49)
--- NOTE | 2018-08-15 19:34 | Emergency Department Note ---
Disposition Clinical Impression: Hyponatremia, Dehydration, Acute kidney injury, Nausea vomiting and diarrhea, C. difficile diarrhea Diabetic ketoacidosis Qualifiers: Diabetes mellitus type: other specified (including RICARDO) Diabetes mellitus complication detail: without coma Qualified Code(s): E13.10 - Other specified diabetes mellitus with ketoacidosis without coma Disposition: Admitted As Inpatient Condition: Good Referrals: Simran Kauffman [Primary Care Provider] - Forms: ED Satisfaction Letter General Adult HPI - General Chief complaint: ED Nausea/Vomiting/Diarrhea Stated complaint: nausea, vomiting, diearrhea Time Seen by Provider: 08/15/18 13:21 Source: patient, EMS Mode of arrival: EMS Limitations: no limitations Nursing Notes Reviewed: Yes Vital Signs Reviewed: Yes - History of Present Illness HPI Narrative: Resident Attestation: I examined this patient and my medical decision making was reviewed with the Resident Physician. I agree with the documented findings, disposition and treatment plan as described except to the extent set forth below. We independently had [id number] contact with the patient. Please see resident note for further details and disposition. Patient here for abdominal pain with associated nausea vomiting and diarrhea. Patient has had profuse amounts of diarrhea. She will undergo further evaluation for her underlying symptoms. Blood work and CT scan of been ordered. Awake alert and oriented, mild distress secondary to nausea, regular rhythm, clear to auscultation bilaterally, abdomen with generalized tenderness. No significant swelling in the lower extremities. Patient has CO2 significantly low. Sodium is low, ketones are elevated. Patient CT scan does not show significant abnormality. She does have significant elevated liver enzymes as well as an elevated bilirubin. Her C. difficile did come back positive. She has been treated with antibiotics. She is undergoing fluid resuscitation. She has been started on insulin drip to help close her gap. Glucose will be monitored closely as she may require glucose supplementation. Patient has been stable during her stay in the emergency department. Patient asked about going home but was told about her need to stay for further treatment. Patient agreeable to stay at this time. Pain Scale: 7 - Related Data Home Medications Medication Instructions Recorded Confirmed Oxycodone HCl 08/15/18 Rabeprazole Sodium [Aciphex] 20 mg PO DAILY 08/15/18 08/15/18 Zoloft 08/15/18 diazePAM [Valium] 10 mg PO BID 08/15/18 08/15/18 Allergies Allergy/AdvReac Type Severity Reaction Status Date / Time No Known Allergies Allergy Verified 09/29/15 07:55 Constitutional: Denies: fever, chills, weakness, weight change ENT ED: Denies: congestion Cardiovascular: Denies: chest pain Respiratory: Denies: cough, dyspnea Gastrointestinal: Reports: nausea, vomiting, diarrhea. Denies: abdominal pain, hematemesis, melena, hematochezia Genitourinary: Denies: dysuria, hematuria Musculoskeletal: Reports: back pain. 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 - Social History Smoking Status: Current every day smoker Smokeless Tobacco Status: No (1 pack/ day) Alcohol use: Reports: heavy Drug use: Reports: prescription drug abuse Physical Exam - General Limitations: no limitations General appearance: alert, in no apparent distress, other (loose stool seen on lower extremities and socks) Course Vital Signs Temperature 98.1 F 08/15/18 13:13 Pulse Rate 53 08/15/18 13:13 Respiratory Rate 16 08/15/18 13:13 Blood Pressure 105/84 08/15/18 13:13 O2 Sat by Pulse Oximetry 95 08/15/18 13:13 Temperature 98.1 F 08/15/18 13:13 Pulse Rate 96 08/15/18 16:00 Respiratory Rate 16 08/15/18 16:00 Blood Pressure 130/87 08/15/18 16:00 O2 Sat by Pulse Oximetry 100 08/15/18 16:00 Oxygen Delivery Oxygen Delivery Room Air Medical Decision Making - Lab Data Result diagrams: 08/15/18 14:22 08/15/18 14:22 Lab Results 08/15/18 08/15/18 08/15/18 Range/Units 14:22 14:22 16:24 WBC 11.2 H (4.3-11.1) K/mcL RBC 3.61 L (3.82-4.97) M/mcL Hgb 11.8 (11.5-15.4) g/dL Hct 37.6 (35.3-44.9) % MCV 104.2 H (83.0-100.0) fL MCH 32.7 (28.0-33.3) pg MCHC 31.4 L (31.6-35.5) g/dL RDW 13.7 (11.5-14.5) % Plt Count 110 L (140-400) K/mcL MPV 11.7 (9.4-12.4) fL Immature Gran % 0.7 (0-4) % Seg Neutrophils % 84.4 % Lymphocytes % 8.6 % Monocytes % 5.6 % Eosinophils % 0.5 % Basophils % 0.2 % Neutrophils # 9.4 H (1.6-8.9) K/mcL Lymphocytes # 1.0 (0.6-4.6) K/mcL Monocytes # 0.6 (0.0-1.3) K/mcL Eosinophils # 0.1 (0.0-0.6) K/mcL Basophils # 0.0 (0.0-0.2) K/mcL Nucleated RBCs/100 WBC 0.4 H (0) /100 WBC VBG pH (7.32-7.42) pH Units VBG pCO2 (41-51) mmHg VBG pO2 (25-50) mmHg VBG HCO3 (21-27) mEq/L Sodium 129 L (136-145) mEq/L Potassium 4.8 (3.5-5.1) mEq/L Chloride 87 L (98-107) mEq/L Carbon Dioxide 7 L* (23-29) mEq/L BUN 36 H (6-20) mg/dL Creatinine 1.21 H (0.60-1.20) mg/dL Est GFR ( Amer) 56 L (> 60) Est GFR (Non-Af Amer) 46 L (> 60) BUN/Creatinine Ratio 30 H (6-26) Glucose 257 H (70-105) mg/dL Calculated Osmolality 285 (280-300) Lactic Acid (0.5-2.2) mmol/L Calcium 8.5 L (8.6-10.3) mg/dL Total Bilirubin 3.4 H (0.3-1.0) mg/dL AST 223 H (13-39) Units/L ALT 118 H (7-52) Units/L Alkaline Phosphatase 192 H (34-104) Units/L Serum Total Protein 7.0 (6.4-8.9) g/dL Albumin 4.5 (3.5-5.7) g/dL Globulin 2.5 (2.4-3.5) g/dL Albumin/Globulin Ratio 1.8 (1.1-2.2) Lipase 101 H (11-82) Units/L Beta-Hydroxybutyric Acd > 2.00 H (0.02-0.27) mmol/L Stl C. diff Tox B Gene (Negative) 08/15/18 08/15/18 08/15/18 Range/Units 16:24 16:53 17:14 WBC (4.3-11.1) K/mcL RBC (3.82-4.97) M/mcL Hgb (11.5-15.4) g/dL Hct (35.3-44.9) % MCV (83.0-100.0) fL MCH (28.0-33.3) pg MCHC (31.6-35.5) g/dL RDW (11.5-14.5) % Plt Count (140-400) K/mcL MPV (9.4-12.4) fL Immature Gran % (0-4) % Seg Neutrophils % % Lymphocytes % % Monocytes % % Eosinophils % % Basophils % % Neutrophils # (1.6-8.9) K/mcL Lymphocytes # (0.6-4.6) K/mcL Monocytes # (0.0-1.3) K/mcL Eosinophils # (0.0-0.6) K/mcL Basophils # (0.0-0.2) K/mcL Nucleated RBCs/100 WBC (0) /100 WBC VBG pH 7.28 L (7.32-7.42) pH Units VBG pCO2 24 L (41-51) mmHg VBG pO2 77 H (25-50) mmHg VBG HCO3 11 L (21-27) mEq/L Sodium (136-145) mEq/L Potassium (3.5-5.1) mEq/L Chloride (98-107) mEq/L Carbon Dioxide (23-29) mEq/L BUN (6-20) mg/dL Creatinine (0.60-1.20) mg/dL Est GFR ( Amer) (> 60) Est GFR (Non-Af Amer) (> 60) BUN/Creatinine Ratio (6-26) Glucose (70-105) mg/dL Calculated Osmolality (280-300) Lactic Acid 3.2 H (0.5-2.2) mmol/L Calcium (8.6-10.3) mg/dL Total Bilirubin (0.3-1.0) mg/dL AST (13-39) Units/L ALT (7-52) Units/L Alkaline Phosphatase (34-104) Units/L Serum Total Protein (6.4-8.9) g/dL Albumin (3.5-5.7) g/dL Globulin (2.4-3.5) g/dL Albumin/Globulin Ratio (1.1-2.2) Lipase (11-82) Units/L Beta-Hydroxybutyric Acd (0.02-0.27) mmol/L Stl C. diff Tox B Gene Positive A (Negative) Attestation Statement - Attestation Attestation: Resident Attestation: I examined this patient and my medical decision making was reviewed with the Resident Physician. I agree with the documented findings, disposition and treatment plan as described except to the extent set forth below. We independently had [id number] contact with the patient. Please see resident note for further details and disposition. Patient here for abdominal pain with associated nausea vomiting and diarrhea. Patient has had profuse amounts of diarrhea. She will undergo further evaluation for her underlying symptoms. Blood work and CT scan of been ordered. Awake alert and oriented, mild distress secondary to nausea, regular rhythm, clear to auscultation bilaterally, abdomen with generalized tenderness. No significant swelling in the lower extremities. Patient has CO2 significantly low. Sodium is low, ketones are elevated. Patient CT scan does not show significant abnormality. She does have significant elevated liver enzymes as well as an elevated bilirubin. Her C. difficile did come back positive. She has been treated with antibiotics. She is undergoing fluid resuscitation. She has been started on insulin drip to help close her gap. Glucose will be monitored closely as she may require glucose supplementation. Patient has been stable during her stay in the emergency department. Patient asked about going home but was told about her need to stay for further treatment. Patient agreeable to stay at this time.
[2018-08-15] MEDS: D5% in 0.45% NACL w KCl 20 MEQ/1,000 ML MLS IVC PRN ×2 (19:41→23:46)
[2018-08-15 20:05] LABS: Bilirubin,Urine Moderate (Negative); Blood,Urine Trace (Negative); Clarity,Urine Clear (Clear); Color,Urine Dark Yellow (Yellow); Glucose,Urine (UA) 100 mg/dL (Normal); Ketones,Urine >=160 mg/dL (Negative); Leukocyte Esterase,Urine Negative (Negative); Nitrite,Urine Negative (Negative); Protein,Urine 30 mg/dL (Neg-Trace); Specific Gravity,Urine 1.026 (1.010-1.025); Urobilinogen,Urine Normal (Normal)
[2018-08-15 20:08] LABS: Bacteria,Urine None Seen per hpf (None-Few); Hyaline Casts,Urine None Seen per lpf (None-Few); Squamous Epithelial Cell,Urine Many per lpf (None-Few); WBC,Urine 0-3 per hpf (0-3)
--- NOTE | 2018-08-15 20:22 | Internal Med History&Physical ---
<Marbella Yang N - Last Filed: 08/16/18 06:01> Date of Encounter: 08/15/18 Time of Encounter: 20:20 Internal Medicine - H&P: HPI Chief complaint: Nausea/vomiting/diarrhea Admitted From: Emergency Dept History of present illness: Ms. Fischer is a 58 year old female with a history of COPD, GERD, GI bleed, liver disease, EtOH abuse, anxiety, and depression. She presented to the ED complaining of nausea/vomiting/diarrhea x 4 days. She reports up to 15 loose stools per day. Her nausea has improved to the point that she was able to tolerate some PO liquid intake today. Patient is a recent , as her on 07/23/2018 approximately 2 weeks after being diagnosed with small cell lung cancer. He appears to have been the primary clod puller at the home, and the patient expresses feeling lost with regards to what she needs to do to ensure she is taken care of financially and medically, as preparations had not been made prior to his . Since her 's , patient has reportedly not been doing well, with concern for recurrent falls and lack of self-care. She does admit that she has not taken any of her medications in at least two days. She has 3 children, but is not in contact with at least one of them. She does report some difficult family interactions between her late 's children and herself. Initial workup in the ED revealed numerous laboratory abnormalities, includeing elevated WBC count of 11.2. VBG demonstrated pH 7.28, pCO2 24, pO2 77, and HCO3 11. Other significant abnormalities were as follows: sodium 129, BUN 36, creatinine 1.21, glucose 257, lactic acid 3.2, calcium 8.5, total bilirubin 3.4, AST 223, ALT 118, alkaline phosphatase 192, lipase 101, and beta-hydroxybutyric acid >2.00. Urinalysis was significant for proteinuria, glucosuria, ketonuria, and moderate bilirubin. C. difficile stool toxin was positive. Patient was admitted to the hospitalist service for management of DKA and C. difficile infection. Patient was evaluated and examined while in the ED. She is awake and alert, with no acute complaints of nausea. She does complain of 6-7/10 back pain secondary to arthritis. She is intermittently tearful, particularly when discussing her 's recent and her difficult family situation. Past Med Surg Social Fam HX - Past Medical History Medical history: arthritis, cirrhosis, COPD, GERD, GI bleed, liver disease, osteoporosis, seizures, other Psychiatric history: anxiety, depression - Past Surgical History Surgical History: breast surgery Additional surgical history: left breast lumpectomy, Right knee replaced - Social History Smoking Status: Current every day smoker Smokeless Tobacco Status: No (0.5 pack/ day) Alcohol use: recent (Reports no alcohol use in weeks; previously consumed a pint of whisky/day) Drug use: prescription drug abuse - Family History Mother Adopted: No Living Status: Still Living Hx Family Cardiac Disorders: Yes ([place], CAD with stent placement, CVA) Maternal Grandfather Hx Family Endocrine Disorder: Yes (Diabetes) Internal Medicine - H&P: Meds Oxycodone HCl 10 mg PO Q4HR PRN 08/15/18 [History] Rabeprazole Sodium [Aciphex] 20 mg PO DAILY 08/15/18 [History] Zoloft 08/15/18 [History] diazePAM [Valium] 10 mg PO BID 08/15/18 [History] Allergy/AdvReac Type Severity Reaction Status Date / Time No Known Allergies Allergy Verified 09/29/15 07:55 All Systems PM: A 10-system review of systems was performed and is negative for pertinent findings except as documented above in the HPI. - Constitutional Vitals: Temp Pulse Resp BP Pulse Ox 98.1 F 95 16 108/94 100 08/15/18 13:13 08/15/18 19:30 08/15/18 19:30 08/15/18 19:30 08/15/18 19:30 Exam: GENERAL: Ill-appearing female in no acute distress. She answers questions appropriately and is cooperative with exam. Patient is intermittently tearful, particularly when speaking of her recently . HEENT: Atraumatic and normocephalic. Oral mucosa appears dry. CARDIOVASCULAR: Regular rate and rhythm. S1 and S2 present. No murmurs, gallops, or rubs. RESPIRATORY: CTA bilaterally. Chest rises and falls symmetrically. No accessory muscle use. GASTROINTESTINAL: Active bowel sounds present x 4 quadrants. Abdomen is soft, nontender, and nondistended. EXTREMITIES: No clubbing, cyanosis, or edema. Internal Med - H&P Results - Labs CBC & Chem 7: 08/16/18 04:52 08/16/18 04:52 Labs: Short CBC 08/15/18 Range/Units 14:22 WBC 11.2 H (4.3-11.1) K/mcL Hgb 11.8 (11.5-15.4) g/dL Hct 37.6 (35.3-44.9) % Plt Count 110 L (140-400) K/mcL Neutrophils # 9.4 H (1.6-8.9) K/mcL BMP 08/15/18 14:22 Sodium 129 L Potassium 4.8 Chloride 87 L Carbon Dioxide 7 L* BUN 36 H Creatinine 1.21 H Glucose 257 H Calcium 8.5 L Liver Function 08/15/18 Range/Units 14:22 Total Bilirubin 3.4 H (0.3-1.0) mg/dL AST 223 H (13-39) Units/L ALT 118 H (7-52) Units/L Alkaline Phosphatase 192 H (34-104) Units/L Albumin 4.5 (3.5-5.7) g/dL Urine 08/15/18 Range/Units 19:37 Urine Color Dark Yellow (Yellow) Urine Clarity Clear (Clear) Urine pH 6.0 (5.0-8.0) pH Units Ur Specific [place] 1.026 H (1.010-1.025) Urine Protein 30 H (Neg-Trace) mg/dL Urine Glucose (UA) 100 H (Normal) mg/dL - ABG Interpretation ABG results: 08/15/18 16:53 VBG pH 7.28 L VBG pCO2 24 L VBG pO2 77 H VBG HCO3 11 L - Impressions ITS Impressions Abdomen/Pelvis CT 08/15/18 15:41 IMPRESSION: No evidence of acute abnormality in the abdomen or pelvis. Marked diffuse hepatic steatosis. Liver surface nodularity suggests cirrhosis. There is no ascites. Chronic calcific pancreatitis. No findings to suggest acute pancreatitis. Mild nonspecific patchy ground-glass opacity in the lung bases may reflect acute airspace disease or chronic scarring. D/ / Aravind Stearns MD / Aravind Stearns MD Interpreting Provider: Aravind Stearns MD Gallbladder Ultrasound 08/15/18 16:57 IMPRESSION: Hepatic steatosis correlates with same day CT findings. Sludge filled gallbladder without evidence of acute cholecystitis or bile duct dilatation. D/ / Jayden Callejas / Jayden Callejas Interpreting Provider: Jayden Callejas Chest X-Ray 08/15/18 17:28 IMPRESSION: No acute findings. No change. D/ / 08/15/2018 17:58:10 Chet Parks MD / óscar Interpreting Provider: Chet Parks MD - Assessment and plan (1) Diabetic ketoacidosis Current Visit: Yes Status: Acute Assessment and plan: Patient presented with a 4-day history of copious diarrhea, nausea, and vomiting. Initial blood glucose was found to be 257. Beta-hydroxybutyric acid was elevated at >2.00. Urinalysis was significant for the following abnormalities: specific gravity 1.026, protein 30, glucose 100, ketones >=160, trace blood, and moderate bilirubin. Patient denies any history of diabetes or elevated blood glucose; however, she was initiated on DKA protocol due to laboratory findings. Initial workup and management is as follows: - 0.9% sodium chloride gtt at 150mL/hr - Insulin gtt per protocol - Serial laboratory evaluations: BMP Q1H x 6, phosphorus Q3H x 3, VBG Q4H x 3 - Serum magnesium - Hemoglobin A1c - Monitor on telemetry - NPO diet except ice chips and meds - Consider endocrinology consult pending results of laboratory studies Qualifiers: Diabetes mellitus type: other specified (including RICARDO) Diabetes mellitus complication detail: without coma Qualified Code(s): E13.10 - Other specified diabetes mellitus with ketoacidosis without coma (2) C. difficile diarrhea Current Visit: Yes Status: Acute Assessment and plan: Patient has had numerous stools for the last several days. C. difficile toxin was positive. Patient received one dose of vancomycin 250mg PO while in the ED. CBC demonstrated elevated WBC count of 11.2 on initial presentation. - Vancomycin 125mg PO QID x 10 days - Repeat CBC with AM labs - Contact precautions (3) Acute kidney injury Current Visit: Yes Status: Acute Assessment and plan: Suspect pre-renal etiology. Likely secondary to dehydration from combination of frequent diarrhea, vomiting, and poor oral intake over the last several days. Patient's creatinine on initial laboratory studies was 1.21, with improvement to 0.74 with IV fluid hydration. - Continue IV fluid hydration - Repeat renal function studies in AM (4) Hyponatremia Current Visit: Yes Status: Acute Assessment and plan: Initial serum sodium was 129 in the ED, with slight improvement on repeat studies. Unclear etiology - may be dilutional due to elevated glucose or secondary to chronic alcohol use. - Continue hydration with 0.9% sodium chloride - Repeat electrolyte studies in AM - Consider urine studies and further workup if hyponatremia persists despite fluid administration (5) Chronic back pain Current Visit: Yes Status: Acute Assessment and plan: Patient reports a history of chronic back pain secondary to arthritis. She does complain of significant back pain at this time. - Continue home medication regimen of oxycodone 10mg PO Q4H PRN Qualifiers: Back pain location: back pain in unspecified location Back pain laterality: unspecified Qualified Code(s): M54.9 - Dorsalgia, unspecified; G89.29 - Other chronic pain (6) Anxiety Current Visit: Yes Status: Acute Assessment and plan: - Hold valium secondary to elevated LFTs and BERT. - Close monitoring for signs of benzodiazepine withdrawal (7) History of alcohol abuse Current Visit: Yes Status: Acute Assessment and plan: Patient reports a history of heavy alcohol use, with consumption of approximately one pint of whisky per day. She denies any alcohol use for the last few weeks. Suspect that this is the cause of the patient's elevated LFTs and imaging findings consistent with heaptic cirrhosis/steatosis. - Initiate [facility] protocol - MVI, folic acid, thiamine, and B-complex supplementation - EtOH level pending - UDS pending (8) Elevated LFTs Current Visit: Yes Status: Acute Assessment and plan: Initial laboratory studies revealed elevated liver enzymes, with RDK=896 and QYI=978. Abdominal CT demonstrated marked diffuse hepatic steatosis, with liver surface nodularity suggestive of cirrhosis. Chonic calcific pancreatitis was noted; however, there were no findings to suggest acute pancreatitis. Subsequent RUQ ultrasound showed hepatic steatosis and sludge-filled gallbladder without evidence of acute cholecystitis or bile duct dilation. Considering patient's history of heavy alcohol abuse, suspect that this is secondary to alcoholic liver disease. Plan to continue monitoring. Patient would likely benefit from further workup and evaluation by PCP and/or gastroenterology. - Continue to monitor - Recommend outpatient follow up with PCP or gastroenterology (9) Tobacco abuse Current Visit: Yes Status: Acute Assessment and plan: Patient currently smokes approximately 1/2 pack per day. She states she has been cutting down since her 's cancer diagnosis. - Recommended continued attempts at smoking cessation.= - Nicotene patch (10) DVT prophylaxis Current Visit: Yes Status: Acute Assessment and plan: - SCDs (11) Depression Current Visit: Yes Status: Acute Assessment and plan: Patient reports history of depression, which she manages with zoloft; however, she reports not having taken her medications for the last few days. Patient is quite tearful due to her 's recent and sudden passing. She states that she does not know where to begin, as her did not make preparations for her to be cared for after his passing. Prior to his cancer diagnosis, her husba nd provided the majority of her assistance and care. She says that she feels overwhelmed when considering the things she needs to do in order to be able to care for herself, including applying for appropriate services, such as medicare/medicaid/etc. Patient's daughter is currently providing most of her financial and emotional support. - Will resume home dose of zoloft once medication reconciliation is completed - Social work consult placed to assist with discharge planning and patient education as to what services, including home health, may be available to her. Qualifiers: Depression Type: unspecified Qualified Code(s): F32.9 - Major depressive disorder, single episode, unspecified - Time Spent With Patient Total time spent is greater than 50% in coordination of care (as documented) at patient's floor/unit and/or counseling patient: <Sabina Rodriguez - Last Filed: 08/16/18 07:54> Internal Medicine - H&P: HPI History of present illness: Ms. Fischer is a 58 year old female All Systems PM: A 10-system review of systems was performed and is negative for pertinent findings except as documented above in the HPI. - Constitutional Vitals: Temp Pulse Resp BP Pulse Ox 99.0 F 93 18 92/64 98 08/16/18 07:20 08/16/18 07:20 08/16/18 07:20 08/16/18 07:20 08/16/18 07:20 Internal Med - H&P Results - Labs CBC & Chem 7: 08/16/18 04:52 08/16/18 04:52 Labs: Short CBC 08/15/18 08/16/18 Range/Units 14:22 04:52 WBC 11.2 H 4.1 L D (4.3-11.1) K/mcL Hgb 11.8 8.0 L D (11.5-15.4) g/dL Hct 37.6 23.3 L (35.3-44.9) % Plt Count 110 L 62 L (140-400) K/mcL Neutrophils # 9.4 H 2.7 (1.6-8.9) K/mcL BMP 08/15/18 08/15/18 08/16/18 14:22 22:39 00:15 Sodium 129 L 132 L 131 L Potassium 4.8 3.5 D 3.5 Chloride 87 L 98 99 Carbon Dioxide 7 L* 20 L 22 L BUN 36 H 25 H 23 H Creatinine 1.21 H 0.74 0.68 Glucose 257 H 91 98 Calcium 8.5 L 7.9 L 7.7 L 08/16/18 04:52 Sodium 132 L Potassium 3.2 L Chloride 101 Carbon Dioxide 20 L BUN 17 Creatinine 0.60 Glucose 162 H Calcium 8.8 Liver Function 08/15/18 Range/Units 14:22 Total Bilirubin 3.4 H (0.3-1.0) mg/dL AST 223 H (13-39) Units/L ALT 118 H (7-52) Units/L Alkaline Phosphatase 192 H (34-104) Units/L Albumin 4.5 (3.5-5.7) g/dL Urine 08/15/18 Range/Units 19:37 Urine Color Dark Yellow (Yellow) Urine Clarity Clear (Clear) Urine pH 6.0 (5.0-8.0) pH Units Ur Specific [place] 1.026 H (1.010-1.025) Urine Protein 30 H (Neg-Trace) mg/dL Urine Glucose (UA) 100 H (Normal) mg/dL - ABG Interpretation ABG results: 08/15/18 08/16/18 08/16/18 16:53 00:23 05:01 VBG pH 7.28 L 7.40 7.43 H VBG pCO2 24 L 34 L 29 L VBG pO2 77 H 78 H 171 H VBG HCO3 11 L 21 19 L - Impressions ITS Impressions Abdomen/Pelvis CT 08/15/18 15:41 IMPRESSION: No evidence of acute abnormality in the abdomen or pelvis. Marked diffuse hepatic steatosis. Liver surface nodularity suggests cirrhosis. There is no ascites. Chronic calcific pancreatitis. No findings to suggest acute pancreatitis. Mild nonspecific patchy ground-glass opacity in the lung bases may reflect acute airspace disease or chronic scarring. D/ / Aravind Stearns MD / Aravind Stearns MD Interpreting Provider: Aravind Stearns MD Gallbladder Ultrasound 08/15/18 16:57 IMPRESSION: Hepatic steatosis correlates with same day CT findings. Sludge filled gallbladder without evidence of acute cholecystitis or bile duct dilatation. D/ / Jayden Callejas / Jayden Callejas Interpreting Provider: Jayden Callejas Chest X-Ray 08/15/18 17:28 IMPRESSION: No acute findings. No change. D/ / 08/15/2018 17:58:10 Chet Parks MD / óscar Interpreting Provider: Chet Parks MD - Assessment and plan (1) Elevated LFTs Current Visit: Yes Status: Acute (2) Acute kidney injury Current Visit: Yes Status: Acute (3) Hyponatremia Current Visit: Yes Status: Acute (4) Diabetic ketoacidosis Current Visit: Yes Status: Acute Qualifiers: Diabetes mellitus type: other specified (including RICARDO) Diabetes mellitus complication detail: without coma Qualified Code(s): E13.10 - Other specified diabetes mellitus with ketoacidosis without coma (5) C. difficile diarrhea Current Visit: Yes Status: Acute (6) History of alcohol abuse Current Visit: Yes Status: Acute (7) Tobacco abuse Current Visit: Yes Status: Acute (8) Chronic back pain Current Visit: Yes Status: Acute Qualifiers: Back pain location: back pain in unspecified location Back pain laterality: unspecified Qualified Code(s): M54.9 - Dorsalgia, unspecified; G89.29 - Other chronic pain (9) DVT prophylaxis Current Visit: Yes Status: Acute (10) Anxiety Current Visit: Yes Status: Acute (11) Depression Current Visit: Yes Status: Acute Qualifiers: Depression Type: unspecified Qualified Code(s): F32.9 - Major depressive disorder, single episode, unspecified - Time Spent With Patient Total time spent is greater than 50% in coordination of care (as documented) at patient's floor/unit and/or counseling patient: - Attending Attestation Patient seen and examined. Chart reviewed. Case discussed with resident. Agree with assessment and plan. See history of present illness for further details. Patient presents with features of DKA though no documented history of diabetes up until this point. She has had decreased by mouth intake for the past 5 days in the setting of nausea vomiting and diarrhea due to a current diagnosis of C. difficile. We will continue treatment per DKA protocol. Patient started on by mouth vancomycin 4 times a day. Clinically stable. We will replete electrolytes. CIWA protocol for possible alcohol/benzodiazepine withdrawal.
[2018-08-15] MEDS ORDERED: Naloxone 0.4 MG/ML INJ IVP PRN (22:11)
[2018-08-15] MEDS ORDERED: *HR* LORazepam 2 MG/ML VIAL IVP PRN ×2 (22:16)
[2018-08-15] MEDS ORDERED: *HR* OxyCODONE Immed Rel 5 MG TABLET PO PRN (22:21)
[2018-08-15 22:47] LABS: Amphetamine Screen,Urine Negative ng/mL (Cutoff=1000); Barbiturate Screen,Urine Negative ng/mL (Cutoff=200); Benzodiazepines Screen,Urine Positive ng/mL (Cutoff=200); Cannabinoid Screen,Urine Negative ng/mL (Cutoff = 50); Cocaine Screen,Urine Negative ng/mL (Cutoff= 300); Opiate Screen,Urine Negative ng/mL (Cutoff=300); Phencyclidine Screen,Urine Negative ng/mL (Cutoff=25)
[2018-08-15 23:30] LABS: BUN/Creatinine Ratio 34 (6-26); Blood Urea Nitrogen 25 mg/dL (6-20); Calcium 7.9 mg/dL (8.6-10.3); Carbon Dioxide 20 mEq/L (23-29); Chloride 98 mEq/L (98-107); Ethanol < 10 mg/dL (Less than 10); Glucose 91 mg/dL (70-105); Osmolality,Calculated 278 (280-300); Potassium 3.5 mEq/L (3.5-5.1); Sodium 132 mEq/L (136-145); eGFR For Non-African Americans > 60 (> 60)
[2018-08-15] MEDS: *HR* LORazepam 2 MG/ML VIAL IVP PRN (23:46)
[2018-08-16 00:29] LABS: VBG HCO3 21 mEq/L (21-27); VBG PCO2 34 mmHg (41-51); VBG PO2 78 mmHg (25-50)
[2018-08-16] MEDS ORDERED: Naloxone 0.4 MG/ML INJ IVP PRN (00:34)
[2018-08-16 00:52] LABS: BUN/Creatinine Ratio 34 (6-26); Blood Urea Nitrogen 23 mg/dL (6-20); Calcium 7.7 mg/dL (8.6-10.3); Carbon Dioxide 22 mEq/L (23-29); Chloride 99 mEq/L (98-107); Glucose 98 mg/dL (70-105); Osmolality,Calculated 276 (280-300); Phosphorous < 1.0 mg/dL (2.7-4.5); Potassium 3.5 mEq/L (3.5-5.1); Sodium 131 mEq/L (136-145); eGFR For Non-African Americans > 60 (> 60)
[2018-08-16] MEDS ORDERED: Calcium Gluconate 2,000 MG in 0.9 % Sodium Chloride 100 ML IVPB ONE (01:06)
[2018-08-16] MEDS: D5% in 0.45% NACL w KCl 20 MEQ/1,000 ML MLS IVC PRN (03:05)
[2018-08-16] MEDS ORDERED: Insulin DETEMIR 100 UNIT/ML X5UNITS SQ ONE (03:38)
[2018-08-16] MEDS ORDERED: D5% in Water 1,000 ML IVC PRN (03:39)
[2018-08-16] MEDS ORDERED: *HR* Dextrose 50 % in Water (Syg) 50 ML SYRINGE IVP PRN (03:39)
[2018-08-16 05:04] LABS: VBG HCO3 19 mEq/L (21-27); VBG PCO2 29 mmHg (41-51); VBG PH 7.43 pH Units (7.32-7.42); VBG PO2 171 mmHg (25-50)
[2018-08-16 05:06] LABS: Eosinophils % 0.7 %; Hematocrit 23.3 % (35.3-44.9); Immature Granulocytes % 0.2 % (0-4); Lymphocytes # 1.2 K/mcL (0.6-4.6); Lymphocytes % 29.1 %; Mean Corpuscular HGB Conc 34.3 g/dL (31.6-35.5); Mean Corpuscular Hemoglobin 33.2 pg (28.0-33.3); Mean Platelet Volume 10.6 fL (9.4-12.4); Monocytes # 0.1 K/mcL (0.0-1.3); Monocytes % 3.2 %; Neutrophils # 2.7 K/mcL (1.6-8.9); Nucleated Red Blood Cells 0.7 /100 WBC (0); Red Blood Count 2.41 M/mcL (3.82-4.97); Red Cell Distribution Width 13.2 % (11.5-14.5); Segmented Neutrophils % 66.8 %
[2018-08-16 05:07] LABS: Mean Corpuscular Volume 96.7 fL (83.0-100.0); Platelet Count 62 K/mcL (140-400)
[2018-08-16 05:27] LABS: BUN/Creatinine Ratio 28 (6-26); Blood Urea Nitrogen 17 mg/dL (6-20); Calcium 8.8 mg/dL (8.6-10.3); Carbon Dioxide 20 mEq/L (23-29); Chloride 101 mEq/L (98-107); Glucose 162 mg/dL (70-105); Osmolality,Calculated 279 (280-300); Potassium 3.2 mEq/L (3.5-5.1); Sodium 132 mEq/L (136-145); eGFR For Non-African Americans > 60 (> 60)
[2018-08-16 05:51] LABS: Estimated Average Glucose 85 mg/dl; Hemoglobin A1C 4.6 %
[2018-08-16] MEDS ORDERED: Insulin LISPRO 300 UNITS/3 ML VIAL SQ SCH ×2 (07:30→21:00)
[2018-08-16] MEDS ORDERED: Potassium Phosphate 44 MEQ in 0.9 % Sodium Chloride 250 ML IVPB ONE (07:59)
[2018-08-16] MEDS ORDERED: *HR* OxyCODONE Immed Rel 5 MG TABLET PO PRN (08:04)
[2018-08-16] MEDS: Thiamine (B-1) 100 MG TABLET PO SCH (08:54)
[2018-08-16] MEDS: Nicotine 14 MG PATCH.TD24 TD SCH (08:54)
[2018-08-16] MEDS: Folic Acid 1 MG TABLET PO SCH (08:54)
[2018-08-16] MEDS: Vitamin B Complex/Vit C/Vit E 1 EACH TABLET PO SCH (08:54)
[2018-08-16] MEDS: Vancomycin Oral Soln 125 MG/2.5 ML UDC PO SCH ×4 (08:54→21:10)
--- NOTE | 2018-08-16 12:45 | Internal Med Progress Note ---
Hospitalist Progress Note - Encounter Date of Encounter: 08/16/18 Time of Encounter: 10:50 - Subjective Interval History: H&P reviewed. 58-year-old female with history of COPD, cirrhosis, alcohol abuse is admitted for C. difficile colitis with severe electrolyte abnormalities. States that she continues to feel weak but did not have as many episodes of diarrhea as previously. No fever/chills or nausea/vomiting. - Exam Vitals: Temp Pulse Resp BP Pulse Ox 98.3 F 74 18 111/85 99 08/16/18 11:57 08/16/18 11:57 08/16/18 11:57 08/16/18 11:57 08/16/18 11:57 Exam: General: Alert and oriented, not in acute distress. HEENT:EOM, pupils equal, round and reactive. Dry oral mucosa Cardiovascular:Normal S1 & S2, No JVD. Pulse regular. Lungs: clear to auscultation, no wheezes/rales Abdomen:Soft, non-tender. No rebound/guarding Neurological:Normal cognition and motor skills. Non-focal Skin:Normal color, no rash, no lesions. - Assessment and Plan (1) C. difficile diarrhea Current Visit: Yes Status: Acute Assessment and Plan: Patient has had numerous stools for the last several days with C. difficile toxin was positive. associated with severe electrolyte abnormalities, see below for mx Started on PO Vanc, continue 125mg QID D2 monitor for stool output Contact precautions (2) Acute kidney injury Current Visit: Yes Status: Acute Assessment and Plan: Suspect pre-renal etiology from combination of frequent diarrhea, vomiting, and poor oral intake with C. diff infection improving with IVF, continue Avoid nephrotoxins (3) Electrolyte abnormality Current Visit: Yes Status: Acute Assessment and Plan: In the setting of concurrent C. difficile diarrhea. Probably contributed by malnutrition as well given the lack of self-care and hx of EtOH abuse Replete potassium, Mg, and phosphorus. Will repeat the level this afternoon for further replacement (4) Metabolic acidosis Current Visit: Yes Status: Acute Assessment and Plan: Likely due to a combination of lactic acidosis and starvation ketoacidosis. A1c of 4.6 improved with current mx for C diff colitis and BERT, continue (5) Elevated LFTs Current Visit: Yes Status: Acute Assessment and Plan: likely related to her EtOH cirrhosis monitor LFT follow up with gastroenterology outpatient (6) History of alcohol abuse Current Visit: Yes Status: Acute Assessment and Plan: Patient reports a history of heavy alcohol use, with consumption of approximately one pint of whisky per day. She denies any alcohol use for the last few weeks. EtOH level < 10 on [facility] protocol for today, d/c if she does not require significant amount of BZD and restart her home dose of diazepam from tomorrow folic acid, thiamine, and B-complex supplementation (7) Tobacco abuse Current Visit: Yes Status: Acute Assessment and Plan: Counseling provided Nicotine replacement therapy (8) DVT prophylaxis Current Visit: Yes Status: Acute - Time Spent with Patient Total time spent is greater than 50% in coordination of care (as documented) at patient's floor/unit and/or counseling patient: Internal Medicine: Result - Labs CBC & Chem 7: 08/16/18 04:52 08/16/18 04:52 Labs: Short CBC 08/15/18 08/16/18 Range/Units 14:22 04:52 WBC 11.2 H 4.1 L D (4.3-11.1) K/mcL Hgb 11.8 8.0 L D (11.5-15.4) g/dL Hct 37.6 23.3 L (35.3-44.9) % Plt Count 110 L 62 L (140-400) K/mcL Neutrophils # 9.4 H 2.7 (1.6-8.9) K/mcL BMP 08/15/18 08/15/18 08/16/18 14:22 22:39 00:15 Sodium 129 L 132 L 131 L Potassium 4.8 3.5 D 3.5 Chloride 87 L 98 99 Carbon Dioxide 7 L* 20 L 22 L BUN 36 H 25 H 23 H Creatinine 1.21 H 0.74 0.68 Glucose 257 H 91 98 Calcium 8.5 L 7.9 L 7.7 L 08/16/18 04:52 Sodium 132 L Potassium 3.2 L Chloride 101 Carbon Dioxide 20 L BUN 17 Creatinine 0.60 Glucose 162 H Calcium 8.8 Liver Function 08/15/18 Range/Units 14:22 Total Bilirubin 3.4 H (0.3-1.0) mg/dL AST 223 H (13-39) Units/L ALT 118 H (7-52) Units/L Alkaline Phosphatase 192 H (34-104) Units/L Albumin 4.5 (3.5-5.7) g/dL Urine 08/15/18 Range/Units 19:37 Urine Color Dark Yellow (Yellow) Urine Clarity Clear (Clear) Urine pH 6.0 (5.0-8.0) pH Units Ur Specific [place] 1.026 H (1.010-1.025) Urine Protein 30 H (Neg-Trace) mg/dL Urine Glucose (UA) 100 H (Normal) mg/dL - Impressions Impressions Abdomen/Pelvis CT 08/15/18 15:41 IMPRESSION: No evidence of acute abnormality in the abdomen or pelvis. Marked diffuse hepatic steatosis. Liver surface nodularity suggests cirrhosis. There is no ascites. Chronic calcific pancreatitis. No findings to suggest acute pancreatitis. Mild nonspecific patchy ground-glass opacity in the lung bases may reflect acute airspace disease or chronic scarring. D/ / Aravind Stearns MD / Aravind Stearns MD Interpreting Provider: Aravind Stearns MD Gallbladder Ultrasound 08/15/18 16:57 IMPRESSION: Hepatic steatosis correlates with same day CT findings. Sludge filled gallbladder without evidence of acute cholecystitis or bile duct dilatation. D/ / Jayden Callejas / Jayden Callejas Interpreting Provider: Jayden Callejas Chest X-Ray 08/15/18 17:28 IMPRESSION: No acute findings. No change. D/ / 08/15/2018 17:58:10 Chet Parks MD / óscar Interpreting Provider: Chet Parks MD Consult Discharge Plan - Plan Referrals: Simran Kauffman [Primary Care Provider] - 08/24/18 4:10 pm
[2018-08-16] MEDS: 0.9 % Sodium Chloride 1,000 ML IVC SCH ×4 (12:52→21:10)
[2018-08-16] MEDS: *HR* OxyCODONE Immed Rel 5 MG TABLET PO PRN ×2 (13:31→21:10)
[2018-08-16 15:03] LABS: BUN/Creatinine Ratio 24 (6-26); Blood Urea Nitrogen 13 mg/dL (6-20); Calcium 8.7 mg/dL (8.6-10.3); Carbon Dioxide 22 mEq/L (23-29); Chloride 99 mEq/L (98-107); Glucose 220 mg/dL (70-105); Magnesium 2.5 mg/dL (1.6-2.6); Osmolality,Calculated 279 (280-300); Phosphorous 2.7 mg/dL (2.7-4.5); Potassium 3.7 mEq/L (3.5-5.1); Sodium 131 mEq/L (136-145); eGFR For Non-African Americans > 60 (> 60)
[2018-08-16] MEDS ORDERED: *HR* Heparin 5,000 UNIT/ML VIAL SQ SCH (18:00)
[2018-08-16 22:56] LABS: Phosphorous 2.2 mg/dL (2.7-4.5); Potassium 3.5 mEq/L (3.5-5.1)
[2018-08-17] MEDS: *HR* OxyCODONE Immed Rel 5 MG TABLET PO PRN ×4 (01:59→21:53)
[2018-08-17 06:03] LABS: Basophils % 0.2 %; Eosinophils # 0.1 K/mcL (0.0-0.6); Eosinophils % 2.2 %; Hematocrit 24.3 % (35.3-44.9); Hemoglobin 8.1 g/dL (11.5-15.4); Immature Granulocytes % 0.5 % (0-4); Lymphocytes # 1.8 K/mcL (0.6-4.6); Lymphocytes % 43.8 %; Mean Corpuscular HGB Conc 33.3 g/dL (31.6-35.5); Mean Corpuscular Hemoglobin 32.7 pg (28.0-33.3); Mean Platelet Volume 10.5 fL (9.4-12.4); Monocytes # 0.2 K/mcL (0.0-1.3); Monocytes % 4.8 %; Nucleated Red Blood Cells 0.5 /100 WBC (0); Red Blood Count 2.48 M/mcL (3.82-4.97); Red Cell Distribution Width 13.6 % (11.5-14.5); Segmented Neutrophils % 48.5 %
[2018-08-17 06:05] LABS: Platelet Count 51 K/mcL (140-400); Platelet Estimate Decreased (Normal)
[2018-08-17 06:24] LABS: Alanine Aminotransferase 56 Units/L (7-52); Albumin 3.4 g/dL (3.5-5.7); Alkaline Phosphatase 137 Units/L (34-104); Aspartate Amino Transferase 80 Units/L (13-39); BUN/Creatinine Ratio 20 (6-26); Bilirubin,Total 1.1 mg/dL (0.3-1.0); Blood Urea Nitrogen 7 mg/dL (6-20); Carbon Dioxide 23 mEq/L (23-29); Chloride 101 mEq/L (98-107); Globulin 1.7 g/dL (2.4-3.5); Glucose 142 mg/dL (70-105); Osmolality,Calculated 274 (280-300); Potassium 3.7 mEq/L (3.5-5.1); Sodium 132 mEq/L (136-145); Total Protein 5.1 g/dL (6.4-8.9); eGFR For Non-African Americans > 60 (> 60)
[2018-08-17 06:25] LABS: Magnesium 1.6 mg/dL (1.6-2.6)
[2018-08-17] MEDS: Nicotine 14 MG PATCH.TD24 TD SCH (08:01)
[2018-08-17] MEDS: Vancomycin Oral Soln 125 MG/2.5 ML UDC PO SCH ×4 (08:26→21:42)
[2018-08-17] MEDS: diazePAM 10 MG TABLET PO SCH ×2 (08:26→21:42)
[2018-08-17] MEDS: Thiamine (B-1) 100 MG TABLET PO SCH (08:26)
[2018-08-17] MEDS: Folic Acid 1 MG TABLET PO SCH (08:26)
[2018-08-17] MEDS: Vitamin B Complex/Vit C/Vit E 1 EACH TABLET PO SCH (08:26)
--- NOTE | 2018-08-17 10:54 | Internal Med Progress Note ---
Hospitalist Progress Note - Encounter Date of Encounter: 08/17/18 Time of Encounter: 09:00 - Subjective Interval History: Diarrhea slowing down to 6-8 episodes yesterday. No fever/chills, abdo pain, or nausea/vomiting. - Exam Vitals: Temp Pulse Resp BP Pulse Ox 98.3 F 84 18 94/71 100 08/17/18 07:26 08/17/18 07:26 08/17/18 07:26 08/17/18 07:26 08/17/18 07:26 Exam: General: Alert and oriented, not in acute distress. HEENT:EOM, pupils equal, round and reactive. Dry oral mucosa Cardiovascular:Normal S1 & S2, No JVD. Pulse regular. Lungs: clear to auscultation, no wheezes/rales Abdomen:Soft, non-tender. No rebound/guarding Neurological:Normal cognition and motor skills. Non-focal Skin:Normal color, no rash, no lesions. - Assessment and Plan (1) C. difficile diarrhea Current Visit: Yes Status: Acute Assessment and Plan: Patient has had numerous stools for the last several days with C. difficile toxin was positive. associated with severe electrolyte abnormalities which are improving Started on PO Vanc, continue 125mg QID D3 monitor for stool output Contact precautions (2) Acute kidney injury Current Visit: Yes Status: Resolved Assessment and Plan: Suspect pre-renal etiology from combination of frequent diarrhea, vomiting, and poor oral intake with C. diff infection improved with IVF, d/c Avoid nephrotoxins (3) Electrolyte abnormality Current Visit: Yes Status: Resolved Assessment and Plan: In the setting of concurrent C. difficile diarrhea. Probably contributed by malnutrition as well given the lack of self-care and hx of EtOH abuse Replete potassium, Mg, and phosphorus -> normalized. monitor daily (4) Elevated LFTs Current Visit: Yes Status: Acute Assessment and Plan: likely related to her EtOH cirrhosis LFT downtrending follow up with gastroenterology outpatient (5) Metabolic acidosis Current Visit: Yes Status: Resolved Assessment and Plan: Likely due to a combination of lactic acidosis and starvation ketoacidosis. A1c of 4.6 improved with current mx for C diff colitis and BERT. CO2 normal today (6) History of alcohol abuse Current Visit: Yes Status: Acute Assessment and Plan: Patient reports a history of heavy alcohol use, with consumption of approximately one pint of whisky per day. She denies any alcohol use for the last few weeks. EtOH level < 10 on presentaton d/c CIWA protocol for today, and resume home dose of diazepam folic acid, thiamine, and B-complex supplementation (7) Tobacco abuse Current Visit: Yes Status: Acute Assessment and Plan: Counseling provided Nicotine replacement therapy (8) DVT prophylaxis Current Visit: Yes Status: Acute Assessment and Plan: SCDs in view of thrombocytopenia a/w cirrhosis - Time Spent with Patient Total time spent is greater than 50% in coordination of care (as documented) at patient's floor/unit and/or counseling patient: Plan of Care Discussed with: patient Internal Medicine: Result - Labs CBC & Chem 7: 08/17/18 05:47 08/17/18 05:47 Labs: Short CBC 08/17/18 Range/Units 05:47 WBC 4.2 L (4.3-11.1) K/mcL Hgb 8.1 L (11.5-15.4) g/dL Hct 24.3 L (35.3-44.9) % Plt Count 51 L (140-400) K/mcL Neutrophils # 2.0 (1.6-8.9) K/mcL BMP 08/16/18 08/16/18 08/17/18 14:29 22:12 05:47 Sodium 131 L 132 L Potassium 3.7 3.5 3.7 Chloride 99 101 Carbon Dioxide 22 L 23 BUN 13 7 Creatinine 0.55 L 0.35 L Glucose 220 H 142 H Calcium 8.7 8.0 L Liver Function 08/17/18 Range/Units 05:47 Total Bilirubin 1.1 H (0.3-1.0) mg/dL AST 80 H (13-39) Units/L ALT 56 H (7-52) Units/L Alkaline Phosphatase 137 H (34-104) Units/L Albumin 3.4 L (3.5-5.7) g/dL Consult Discharge Plan - Plan Referrals: Simran Kauffman [Primary Care Provider] - 08/24/18 4:10 pm
[2018-08-17] MEDS: *HR* LORazepam 2 MG/ML VIAL IVP PRN (12:54)
[2018-08-17] MEDS: 0.9 % Sodium Chloride 1,000 ML IVC SCH (19:29)
[2018-08-18] MEDS: *HR* OxyCODONE Immed Rel 5 MG TABLET PO PRN ×3 (02:51→20:58)
[2018-08-18 05:49] LABS: Mean Corpuscular HGB Conc 33.7 g/dL (31.6-35.5); Red Cell Distribution Width 13.4 % (11.5-14.5)
[2018-08-18 05:51] LABS: Hematocrit 24.3 % (35.3-44.9); Hemoglobin 8.2 g/dL (11.5-15.4); Immature Platelets 11.1 % (1.1-6.1); Mean Corpuscular Hemoglobin 32.8 pg (28.0-33.3); Mean Corpuscular Volume 97.2 fL (83.0-100.0); Red Blood Count 2.5 M/mcL (3.82-4.97)
[2018-08-18 05:58] LABS: BUN/Creatinine Ratio 15 (6-26); Blood Urea Nitrogen 5 mg/dL (6-20); Calcium 8.5 mg/dL (8.6-10.3); Carbon Dioxide 28 mEq/L (23-29); Chloride 98 mEq/L (98-107); Glucose 105 mg/dL (70-105); Magnesium 1.5 mg/dL (1.6-2.6); Osmolality,Calculated 276 (280-300); Potassium 3.8 mEq/L (3.5-5.1); Sodium 134 mEq/L (136-145); eGFR For Non-African Americans > 60 (> 60)
[2018-08-18] MEDS: Nicotine 14 MG PATCH.TD24 TD SCH (07:44)
[2018-08-18] MEDS: Thiamine (B-1) 100 MG TABLET PO SCH (07:44)
[2018-08-18] MEDS: Folic Acid 1 MG TABLET PO SCH (07:44)
[2018-08-18] MEDS: Vitamin B Complex/Vit C/Vit E 1 EACH TABLET PO SCH (07:44)
[2018-08-18] MEDS: diazePAM 10 MG TABLET PO SCH ×2 (07:44→20:58)
[2018-08-18] MEDS: Vancomycin Oral Soln 125 MG/2.5 ML UDC PO SCH ×5 (07:45→21:05)
[2018-08-18] MEDS: Magnesium Oxide 400 MG TABLET PO SCH ×2 (12:27→20:59)
[2018-08-18] MEDS ORDERED: Haloperidol Lactate 5 MG/ML VIAL IM ONE (17:43)
--- NOTE | 2018-08-18 19:25 | Internal Med Progress Note ---
Hospitalist Progress Note - Encounter Date of Encounter: 08/18/18 Time of Encounter: 12:00 - Subjective Interval History: States that she continues to have diarrhea about 6-8 episodes yesterday but not available on chart. No fever/chills, abdo pain, or nausea/vomiting. - Exam Vitals: Temp Pulse Resp BP Pulse Ox 98.6 F 86 15 154/88 97 08/18/18 11:00 08/18/18 11:00 08/18/18 11:00 08/18/18 11:00 08/18/18 11:00 Exam: General: Alert and oriented, not in acute distress. HEENT:EOM, pupils equal, round and reactive. Anicteric sclera Cardiovascular:Normal S1 & S2, No JVD. Pulse regular. Lungs: clear to auscultation, no wheezes/rales Abdomen:Soft, non-tender. No rebound/guarding Neurological:Normal cognition and motor skills. Non-focal Skin:Normal color, no rash, no lesions. - Assessment and Plan (1) C. difficile diarrhea Current Visit: Yes Status: Acute Assessment and Plan: Patient has had numerous stools for 5 days prior to the admission with C. difficile toxin was positive. associated with severe electrolyte abnormalities which are improving Started on PO Vanc, continue 125mg QID D4 monitor for stool output, please chart on I&O Contact precautions (2) Electrolyte abnormality Current Visit: Yes Status: Resolved Assessment and Plan: In the setting of concurrent C. difficile diarrhea. Probably contributed by malnutrition as well given the lack of self-care and hx of EtOH abuse Replete Mg today monitor daily (3) Failure to thrive Current Visit: Yes Status: Chronic Assessment and Plan: SW note reviewed appears that patient had not been able to care for self at home, especially after her recent loss of spouse PT/OT also recommended placement to SNF pending referral results (4) Acute kidney injury Current Visit: Yes Status: Resolved Assessment and Plan: Suspect pre-renal etiology from combination of frequent diarrhea, vomiting, and poor oral intake with C. diff infection improved with IVF, discontinued yesterday encourage oral intake Avoid nephrotoxins (5) Elevated LFTs Current Visit: Yes Status: Acute Assessment and Plan: likely related to her EtOH cirrhosis LFT downtrending follow up with gastroenterology outpatient (6) Metabolic acidosis Current Visit: Yes Status: Resolved Assessment and Plan: Likely due to a combination of lactic acidosis and starvation ketoacidosis. A1c of 4.6 improved with current mx for C diff colitis and BERT. CO2 normal x2 (7) History of alcohol abuse Current Visit: Yes Status: Acute Assessment and Plan: Patient reports a history of heavy alcohol use, with consumption of approximately one pint of whisky per day. She denies any alcohol use for the last few weeks. EtOH level < 10 on presentaton CIWA protocol discontinued yesterday, home dose of diazepam resumed folic acid, thiamine, and B-complex supplementation (8) Tobacco abuse Current Visit: Yes Status: Acute Assessment and Plan: Counseling provided Nicotine replacement therapy (9) DVT prophylaxis Current Visit: Yes Status: Acute Assessment and Plan: SCDs in view of thrombocytopenia a/w cirrhosis - Time Spent with Patient Total time spent is greater than 50% in coordination of care (as documented) at patient's floor/unit and/or counseling patient: Plan of Care Discussed with: patient Internal Medicine: Result - Labs CBC & Chem 7: 08/18/18 05:30 08/18/18 05:30 Labs: Short CBC 08/18/18 Range/Units 05:30 WBC 3.3 L (4.3-11.1) K/mcL Hgb 8.2 L (11.5-15.4) g/dL Hct 24.3 L (35.3-44.9) % Plt Count 62 L (140-400) K/mcL BMP 08/18/18 05:30 Sodium 134 L Potassium 3.8 Chloride 98 Carbon Dioxide 28 BUN 5 L Creatinine 0.34 L Glucose 105 Calcium 8.5 L Consult Discharge Plan - Plan Referrals: Simran Kauffman [Primary Care Provider] - 08/24/18 4:10 pm
[2018-08-19] MEDS: *HR* OxyCODONE Immed Rel 5 MG TABLET PO PRN ×4 (04:24→21:30)
[2018-08-19 06:10] LABS: Mean Corpuscular HGB Conc 34.5 g/dL (31.6-35.5); Mean Corpuscular Hemoglobin 33.2 pg (28.0-33.3); Mean Platelet Volume 11.2 fL (9.4-12.4)
[2018-08-19 06:12] LABS: Hematocrit 26.1 % (35.3-44.9); Mean Corpuscular Volume 96.3 fL (83.0-100.0); Red Blood Count 2.71 M/mcL (3.82-4.97); Red Cell Distribution Width 13.8 % (11.5-14.5)
[2018-08-19 06:22] LABS: BUN/Creatinine Ratio 11 (6-26); Blood Urea Nitrogen 5 mg/dL (6-20); Calcium 9.2 mg/dL (8.6-10.3); Carbon Dioxide 27 mEq/L (23-29); Chloride 102 mEq/L (98-107); Glucose 125 mg/dL (70-105); Magnesium 1.6 mg/dL (1.6-2.6); Osmolality,Calculated 289 (280-300); Potassium 4.4 mEq/L (3.5-5.1); Sodium 140 mEq/L (136-145); eGFR For Non-African Americans > 60 (> 60)
[2018-08-19] MEDS: Thiamine (B-1) 100 MG TABLET PO SCH (07:48)
[2018-08-19] MEDS: Vitamin B Complex/Vit C/Vit E 1 EACH TABLET PO SCH (07:48)
[2018-08-19] MEDS: Folic Acid 1 MG TABLET PO SCH (07:48)
[2018-08-19] MEDS: Nicotine 14 MG PATCH.TD24 TD SCH (07:49)
[2018-08-19] MEDS: diazePAM 10 MG TABLET PO SCH ×2 (07:49→21:32)
[2018-08-19] MEDS: Magnesium Oxide 400 MG TABLET PO SCH ×2 (07:49→21:31)
[2018-08-19] MEDS: Vancomycin Oral Soln 125 MG/2.5 ML UDC PO SCH ×4 (07:50→21:32)
--- NOTE | 2018-08-19 11:21 | Internal Med Progress Note ---
Hospitalist Progress Note - Encounter Date of Encounter: 08/19/18 Time of Encounter: 09:45 - Subjective Interval History: Intermittent confusion noted, only had 2 BM that started to become more solid. No fever/chills, abdo pain, or nausea/vomiting. - Exam Vitals: Temp Pulse Resp BP Pulse Ox 98.1 F 79 17 110/73 96 08/19/18 10:51 08/19/18 10:51 08/19/18 10:51 08/19/18 10:51 08/19/18 10:51 Exam: General: Alert and oriented, not in acute distress. HEENT:EOM, pupils equal, round and reactive. Anicteric sclera Cardiovascular:Normal S1 & S2, No JVD. Pulse regular. Lungs: clear to auscultation, no wheezes/rales Abdomen:Soft, non-tender. No rebound/guarding Neurological:Normal cognition and motor skills. Non-focal Skin:Normal color, no rash, no lesions. - Assessment and Plan (1) C. difficile diarrhea Current Visit: Yes Status: Acute Assessment and Plan: Patient has had numerous stools for 5 days prior to the admission with C. di fficile toxin was positive. associated with severe electrolyte abnormalities which have improved continue PO VAnc 125mg QID through 08/25 monitor for stool output Contact precautions (2) Electrolyte abnormality Current Visit: Yes Status: Resolved Assessment and Plan: In the setting of concurrent C. difficile diarrhea. Probably contributed by malnutrition as well given the lack of self-care and hx of EtOH abuse continue to monitor K, Mg (3) Failure to thrive Current Visit: Yes Status: Chronic Assessment and Plan: SW note reviewed appears that patient had not been able to care for self at home, especially after her recent loss of spouse PT/OT also recommended placement to SNF pending referral results (4) Acute kidney injury Current Visit: Yes Status: Resolved Assessment and Plan: Suspect pre-renal etiology from combination of frequent diarrhea, vomiting, and poor oral intake with C. diff infection improved with IVF, encourage oral intake Avoid nephrotoxins (5) Elevated LFTs Current Visit: Yes Status: Acute Assessment and Plan: likely related to her EtOH cirrhosis LFT downtrending follow up with gastroenterology outpatient (6) Metabolic acidosis Current Visit: Yes Status: Resolved Assessment and Plan: Likely due to a combination of lactic acidosis and starvation ketoacidosis. A1c of 4.6 improved with current mx for C diff colitis and BERT. (7) History of alcohol abuse Current Visit: Yes Status: Acute Assessment and Plan: Patient reports a history of heavy alcohol use, with consumption of approximatel y one pint of whisky per day. She denies any alcohol use for the last few weeks. EtOH level < 10 on presentaton CIWA protocol discontinued after 2 days, home dose of diazepam resumed folic acid, thiamine, and B-complex supplementation (8) Tobacco abuse Current Visit: Yes Status: Acute Assessment and Plan: Counseling provided Nicotine replacement therapy (9) DVT prophylaxis Current Visit: Yes Status: Acute Assessment and Plan: SCDs in view of thrombocytopenia a/w cirrhosis - Time Spent with Patient Total time spent is greater than 50% in coordination of care (as documented) at patient's floor/unit and/or counseling patient: Plan of Care Discussed with: nurse Internal Medicine: Result - Labs CBC & Chem 7: 08/19/18 05:55 08/19/18 05:55 Labs: Short CBC 08/19/18 Range/Units 05:55 WBC 3.7 L (4.3-11.1) K/mcL Hgb 9.0 L (11.5-15.4) g/dL Hct 26.1 L (35.3-44.9) % Plt Count 68 L (140-400) K/mcL BMP 08/19/18 05:55 Sodium 140 Potassium 4.4 Chloride 102 Carbon Dioxide 27 BUN 5 L Creatinine 0.47 L Glucose 125 H Calcium 9.2 Consult Discharge Plan - Plan Referrals: Simran Kauffman [Primary Care Provider] - 08/24/18 4:10 pm (3) Failure to thrive Qualifiers: Failure to thrive age range: in adult Qualified Code(s): R62.7 - Adult failure to thrive
[2018-08-20] MEDS: *HR* OxyCODONE Immed Rel 5 MG TABLET PO PRN ×4 (02:46→20:05)
[2018-08-20] MEDS: diazePAM 10 MG TABLET PO SCH ×2 (10:06→20:06)
[2018-08-20] MEDS: Vancomycin Oral Soln 125 MG/2.5 ML UDC PO SCH ×4 (10:06→20:07)
[2018-08-20] MEDS: Vitamin B Complex/Vit C/Vit E 1 EACH TABLET PO SCH (10:07)
[2018-08-20] MEDS: Magnesium Oxide 400 MG TABLET PO SCH ×2 (10:07→20:06)
[2018-08-20] MEDS: Folic Acid 1 MG TABLET PO SCH (10:07)
[2018-08-20] MEDS: Thiamine (B-1) 100 MG TABLET PO SCH (10:07)
[2018-08-20] MEDS: Nicotine 14 MG PATCH.TD24 TD SCH (10:10)
--- NOTE | 2018-08-20 10:14 | Internal Med Progress Note ---
Hospitalist Progress Note - Encounter Date of Encounter: 08/20/18 Time of Encounter: 09:00 - Subjective Interval History: AGain had 2 BMs overnight, reported to be liquid-like. No fever/chills, abdo pain, or nausea/vomiting. - Exam Vitals: Temp Pulse Resp BP Pulse Ox 98.1 F 85 16 100/63 98 08/20/18 06:26 08/20/18 06:26 08/20/18 06:26 08/20/18 06:26 08/20/18 06:26 Exam: General: Alert and oriented, not in acute distress. Cardiovascular:Normal S1 & S2, No JVD. Pulse regular. Lungs: clear to auscultation, no wheezes/rales Abdomen:Soft, non-tender. No rebound/guarding Neurological:Normal cognition and motor skills. Non-focal Skin:Normal color, no rash, no lesions. - Assessment and Plan (1) C. difficile diarrhea Current Visit: Yes Status: Acute Assessment and Plan: Patient has had numerous stools for 5 days prior to the admission with C. difficile toxin was positive. associated with severe electrolyte abnormalities which have improved continue PO VAnc 125mg QID through 08/25 monitor for stool output Contact precautions medically stable to be discharged, pending SNF confirmation (2) Electrolyte abnormality Current Visit: Yes Status: Resolved Assessment and Plan: In the setting of concurrent C. difficile diarrhea. Probably contributed by malnutrition as well given the lack of self-care and hx of EtOH abuse continue to monitor K, Mg (3) Failure to thrive Current Visit: Yes Status: Chronic Assessment and Plan: SW note reviewed appears that patient had not been able to care for self at home, especially after her recent loss of spouse PT/OT also recommended placement to SNF pending referral results (4) Acute kidney injury Current Visit: Yes Status: Resolved Assessment and Plan: Suspect pre-renal etiology from combination of frequent diarrhea, vomiting, and poor oral intake with C. diff infection improved with IVF, encourage oral intake Avoid nephrotoxins (5) Elevated LFTs Current Visit: Yes Status: Chronic Assessment and Plan: likely related to her EtOH cirrhosis LFT downtrending follow up with gastroenterology outpatient (6) Metabolic acidosis Current Visit: Yes Status: Resolved Assessment and Plan: Likely due to a combination of lactic acidosis and starvation ketoacidosis. A1c of 4.6 improved with current mx for C diff colitis and BERT. (7) History of alcohol abuse Current Visit: Yes Status: Acute Assessment and Plan: Patient reports a history of heavy alcohol use, with consumption of approximately one pint of whisky per day. She denies any alcohol use for the last few weeks. EtOH level < 10 on presentaton CIWA protocol discontinued after 2 days, home dose of diazepam resumed folic acid, thiamine, and B-complex supplementation (8) Tobacco abuse Current Visit: Yes Status: Acute Assessment and Plan: Counseling provided Nicotine replacement therapy (9) DVT prophylaxis Current Visit: Yes Status: Acute Assessment and Plan: SCDs in view of thrombocytopenia a/w cirrhosis - Time Spent with Patient Total time spent is greater than 50% in coordination of care (as documented) at patient's floor/unit and/or counseling patient: Plan of Care Discussed with: nurse Internal Medicine: Result - Labs CBC & Chem 7: 08/19/18 05:55 08/19/18 05:55 Consult Discharge Plan - Plan Referrals: Simran Kauffman [Primary Care Provider] - 08/24/18 4:10 pm (3) Failure to thrive Qualifiers: Failure to thrive age range: in adult Qualified Code(s): R62.7 - Adult fa ilure to thrive
[2018-08-21] MEDS: *HR* OxyCODONE Immed Rel 5 MG TABLET PO PRN ×3 (00:18→19:47)
[2018-08-21] MEDS: Melatonin 3 MG TABLET PO PRN (03:22)
[2018-08-21 06:07] LABS: Basophils % 0.6 %; Eosinophils # 0.1 K/mcL (0.0-0.6); Eosinophils % 2.5 %; Hematocrit 25.4 % (35.3-44.9); Hemoglobin 8.6 g/dL (11.5-15.4); Immature Granulocytes % 0.4 % (0-4); Lymphocytes # 1.8 K/mcL (0.6-4.6); Mean Corpuscular HGB Conc 33.9 g/dL (31.6-35.5); Mean Corpuscular Hemoglobin 33.6 pg (28.0-33.3); Mean Corpuscular Volume 99.2 fL (83.0-100.0); Mean Platelet Volume 11.3 fL (9.4-12.4); Monocytes # 0.7 K/mcL (0.0-1.3); Monocytes % 12.8 %; Neutrophils # 2.5 K/mcL (1.6-8.9); Platelet Count 137 K/mcL (140-400); Red Blood Count 2.56 M/mcL (3.82-4.97); Red Cell Distribution Width 14.7 % (11.5-14.5); Segmented Neutrophils % 48.7 %
[2018-08-21 06:23] LABS: BUN/Creatinine Ratio 24 (6-26); Blood Urea Nitrogen 11 mg/dL (6-20); Calcium 9.2 mg/dL (8.6-10.3); Carbon Dioxide 27 mEq/L (23-29); Chloride 99 mEq/L (98-107); Glucose 110 mg/dL (70-105); Osmolality,Calculated 280 (280-300); Potassium 3.8 mEq/L (3.5-5.1); Sodium 135 mEq/L (136-145); eGFR For Non-African Americans > 60 (> 60)
[2018-08-21] MEDS: Nicotine 14 MG PATCH.TD24 TD SCH (08:36)
[2018-08-21] MEDS: Vitamin B Complex/Vit C/Vit E 1 EACH TABLET PO SCH (08:36)
[2018-08-21] MEDS: Magnesium Oxide 400 MG TABLET PO SCH ×2 (08:36→19:47)
[2018-08-21] MEDS: Folic Acid 1 MG TABLET PO SCH (08:36)
[2018-08-21] MEDS: Thiamine (B-1) 100 MG TABLET PO SCH (08:36)
[2018-08-21] MEDS: diazePAM 10 MG TABLET PO SCH ×2 (08:36→19:47)
[2018-08-21] MEDS: Vancomycin Oral Soln 125 MG/2.5 ML UDC PO SCH ×4 (08:37→19:47)
--- NOTE | 2018-08-21 13:34 | Internal Med Progress Note ---
Hospitalist Progress Note - Encounter Date of Encounter: 08/21/18 Time of Encounter: 12:30 - Subjective Interval History: Soft BM x 2 reported overnight. No fever/chills, abdo pain, or nausea/vomiting. - Exam Vitals: Temp Pulse Resp BP Pulse Ox 98.8 F 83 15 105/70 90 08/21/18 11:27 08/21/18 11:27 08/21/18 11:27 08/21/18 11:27 08/21/18 11:27 Exam: General: Alert and oriented, not in acute distress. Cardiovascular:Normal S1 & S2, No JVD. Pulse regular. Lungs: clear to auscultation, no wheezes/rales Abdomen:Soft, non-tender. No rebound/guarding Neurological:Normal cognition and motor skills. Non-focal Skin:Normal color, no rash, no lesions. - Assessment and Plan (1) C. difficile diarrhea Current Visit: Yes Status: Acute Assessment and Plan: Patient has had numerous stools for 5 days prior to the admission with C. difficile toxin was positive. associated with severe electrolyte abnormalities which have improved continue PO Vanc 125mg QID through 08/25 monitor for stool output Contact precautions medically stable to be discharged, pending SNF confirmation (2) Electrolyte abnormality Current Visit: Yes Status: Resolved Assessment and Plan: In the setting of concurrent C. difficile diarrhea. Probably contributed by malnutrition as well given the lack of self-care and hx of EtOH abuse continue to monitor K, Mg (3) Failure to thrive Current Visit: Yes Status: Chronic Assessment and Plan: SW note reviewed appears that patient had not been able to care for self at home, especially after her recent loss of spouse PT/OT also recommended placement to SNF pending referral results (4) Acute kidney injury Current Visit: Yes Status: Resolved Assessment and Plan: Suspect pre-renal etiology from combination of frequent diarrhea, vomiting, and poor oral intake with C. diff infection improved with IVF, encourage oral intake Avoid nephrotoxins (5) Elevated LFTs Current Visit: Yes Status: Chronic Assessment and Plan: likely related to her EtOH cirrhosis LFT downtrending follow up with gastroenterology outpatient (6) Metabolic acidosis Current Visit: Yes Status: Resolved Assessment and Plan: Likely due to a combination of lactic acidosis and starvation ketoacidosis. A1c of 4.6 improved with current mx for C diff colitis and BERT. (7) History of alcohol abuse Current Visit: Yes Status: Acute Assessment and Plan: Patient reports a history of heavy alcohol use, with consumption of approximately one pint of whisky per day. She denies any alcohol use for the last few weeks. EtOH level < 10 on presentaton CIWA protocol discontinued after 2 days, home dose of diazepam resumed folic acid, thiamine, and B-complex supplementation (8) Tobacco abuse Current Visit: Yes Status: Acute Assessment and Plan: Counseling provided Nicotine replacement therapy (9) DVT prophylaxis Current Visit: Yes Status: Acute Assessment and Plan: as her Plt improved, will try hep SQ - Time Spent with Patient Total time spent is greater than 50% in coordination of care (as documented) at patient's floor/unit and/or counseling patient: Plan of Care Discussed with: case management Internal Medicine: Result - Labs CBC & Chem 7: 08/21/18 05:34 08/21/18 05:34 Labs: Short CBC 08/21/18 Range/Units 05:34 WBC 5.2 (4.3-11.1) K/mcL Hgb 8.6 L (11.5-15.4) g/dL Hct 25.4 L (35.3-44.9) % Plt Count 137 L D (140-400) K/mcL Neutrophils # 2.5 (1.6-8.9) K/mcL BMP 08/21/18 05:34 Sodium 135 L Potassium 3.8 Chloride 99 Carbon Dioxide 27 BUN 11 Creatinine 0.45 L Glucose 110 H Calcium 9.2 Consult Discharge Plan - Plan Referrals: Simran Kauffman [Primary Care Provider] - 08/24/18 4:10 pm (3) Failure to thrive Qualifiers: Failure to thrive age range: in adult Qualified Code(s): R62.7 - Adult failure to thrive
[2018-08-21] MEDS: *HR* Heparin 5,000 UNIT/ML VIAL SQ SCH (17:33)
[2018-08-21] MEDS ORDERED: Trolamine Salicylate/Aloe Vera 35.4 GM TUBE TP PRN (22:08)
[2018-08-22] MEDS: *HR* OxyCODONE Immed Rel 5 MG TABLET PO PRN ×5 (00:04→20:38)
[2018-08-22] MEDS: *HR* Heparin 5,000 UNIT/ML VIAL SQ SCH ×2 (04:56→16:30)
[2018-08-22] MEDS: Vancomycin Oral Soln 125 MG/2.5 ML UDC PO SCH ×4 (08:00→20:39)
[2018-08-22] MEDS: Nicotine 14 MG PATCH.TD24 TD SCH (08:00)
[2018-08-22] MEDS: Magnesium Oxide 400 MG TABLET PO SCH ×2 (08:00→20:38)
[2018-08-22] MEDS: Folic Acid 1 MG TABLET PO SCH (08:02)
[2018-08-22] MEDS: Vitamin B Complex/Vit C/Vit E 1 EACH TABLET PO SCH (08:02)
[2018-08-22] MEDS: diazePAM 10 MG TABLET PO SCH ×2 (08:08→20:38)
[2018-08-22] MEDS: Thiamine (B-1) 100 MG TABLET PO SCH (08:08)
--- NOTE | 2018-08-22 11:22 | Internal Med Progress Note ---
Hospitalist Progress Note - Encounter Date of Encounter: 08/22/18 Time of Encounter: 11:20 - Subjective Interval History: Pt reported improved diarrhea. Had 2 BM in the last 24 hours. No abdominal pain. - Exam Vitals: Temp Pulse Resp BP Pulse Ox 98.0 F 84 14 102/67 97 08/22/18 10:52 08/22/18 10:52 08/22/18 10:52 08/22/18 10:52 08/22/18 10:52 Exam: PHYSICAL EXAMINATION: GENERAL APPEARANCE: The patient is alert, oriented and in no acute distress. HEENT: Head is normocephalic. The sinuses are nontender. Pupils are equal and reactive. The nares are patent. Oropharynx clear without lesions. NECK: Supple without lymphadenopathy. HEART: Regular rate and rhythm. LUNGS: No crackles or wheezes are heard. ABDOMEN: Soft, nontender, nondistended with good bowel sounds heard. Inguinal area is normal. EXTREMITIES: Without cyanosis, clubbing or edema. NEUROLOGICAL: Gross nonfocal. SKIN: Warm and dry without any rash. - Assessment and Plan (1) C. difficile diarrhea Current Visit: Yes Status: Acute Assessment and Plan: Patient has had numerous stools for 5 days prior to the admission with C. difficile toxin was positive. associated with severe electrolyte abnormalities which have improved continue PO Vanc 125mg QID through 08/25 monitor for stool output Contact precautions medically stable to be discharged, pending SNF confirmation (2) Elevated LFTs Current Visit: Yes Status: Chronic Assessment and Plan: likely related to her EtOH cirrhosis LFT downtrending follow up with gastroenterology outpatient (3) Acute kidney injury Current Visit: Yes Status: Resolved (4) History of alcohol abuse Current Visit: Yes Status: Acute Assessment and Plan: Patient reports a history of heavy alcohol use, with consumption of approximately one pint of whisky per day. She denies any alcohol use for the last few weeks. EtOH level < 10 on presentaton CIWA protocol discontinued after 2 days, home dose of diazepam resumed folic acid, thiamine, and B-complex supplementation (5) Tobacco abuse Current Visit: Yes Status: Acute Assessment and Plan: Counseling provided Nicotine replacement therapy (6) Electrolyte abnormality Current Visit: Yes Status: Resolved (7) Metabolic acidosis Current Visit: Yes Status: Resolved (8) Failure to thrive Current Visit: Yes Status: Chronic Assessment and Plan: SW note reviewed appears that patient had not been able to care for self at home, especially after her recent loss of spouse PT/OT also recommended placement to SNF pending referral results (9) DVT prophylaxis Current Visit: Yes Status: Acute Assessment and Plan: as her Plt improved, will try hep SQ - Time Spent with Patient Total time spent is greater than 50% in coordination of care (as documented) at patient's floor/unit and/or counseling patient: Greater than 35 minutes Plan of Care Discussed with: patient Internal Medicine: Result - Labs CBC & Chem 7: 08/21/18 05:34 08/21/18 05:34 Consult Discharge Plan - Plan Referrals: Simran Kauffman [Primary Care Provider] - 08/24/18 4:10 pm (8) Failure to thrive Qualifiers: Failure to thrive age range: in adult Qualified Code(s): R62.7 - Adult failure to thrive
[2018-08-22] MEDS: Melatonin 3 MG TABLET PO PRN (20:38)
[2018-08-23] MEDS: *HR* OxyCODONE Immed Rel 5 MG TABLET PO PRN ×5 (01:11→19:54)
[2018-08-23] MEDS: *HR* Heparin 5,000 UNIT/ML VIAL SQ SCH ×2 (05:03→17:03)
[2018-08-23 06:01] LABS: BUN/Creatinine Ratio 27 (6-26); Blood Urea Nitrogen 13 mg/dL (6-20); Calcium 8.8 mg/dL (8.6-10.3); Carbon Dioxide 29 mEq/L (23-29); Chloride 102 mEq/L (98-107); Glucose 109 mg/dL (70-105); Osmolality,Calculated 281 (280-300); Sodium 135 mEq/L (136-145); eGFR For Non-African Americans > 60 (> 60)
[2018-08-23] MEDS: Nicotine 14 MG PATCH.TD24 TD SCH (09:55)
[2018-08-23] MEDS: Magnesium Oxide 400 MG TABLET PO SCH ×2 (09:55→19:54)
[2018-08-23] MEDS: Vancomycin Oral Soln 125 MG/2.5 ML UDC PO SCH ×4 (09:55→19:55)
[2018-08-23] MEDS: diazePAM 10 MG TABLET PO SCH ×2 (09:55→19:54)
[2018-08-23] MEDS: Vitamin B Complex/Vit C/Vit E 1 EACH TABLET PO SCH (09:55)
[2018-08-23] MEDS: Folic Acid 1 MG TABLET PO SCH (09:55)
[2018-08-23] MEDS: Thiamine (B-1) 100 MG TABLET PO SCH (09:56)
--- NOTE | 2018-08-23 15:21 | Internal Med Progress Note ---
Hospitalist Progress Note - Encounter Date of Encounter: 08/23/18 Time of Encounter: 15:19 - Subjective Interval History: Pt reported improved diarrhea. Had 1 BM in the last 24 hours. No abdominal pain. - Exam Vitals: Temp Pulse Resp BP Pulse Ox 98.3 F 76 17 96/59 97 08/23/18 15:16 08/23/18 15:16 08/23/18 15:16 08/23/18 15:16 08/23/18 15:16 Exam: PHYSICAL EXAMINATION: GENERAL APPEARANCE: The patient is alert, oriented and in no acute distress. HEENT: Head is normocephalic. The sinuses are nontender. Pupils are equal and reactive. The nares are patent. Oropharynx clear without lesions. NECK: Supple without lymphadenopathy. HEART: Regular rate and rhythm. LUNGS: No crackles or wheezes are heard. ABDOMEN: Soft, nontender, nondistended with good bowel sounds heard. Inguinal area is normal. EXTREMITIES: Without cyanosis, clubbing or edema. NEUROLOGICAL: Gross nonfocal. SKIN: Warm and dry without any rash. - Assessment and Plan (1) C. difficile diarrhea Current Visit: Yes Status: Acute Assessment and Plan: Patient has had numerous stools for 5 days prior to the admission with C. difficile toxin was positive. associated with severe electrolyte abnormalities which have improved continue PO Vanc 125mg QID through 08/25 monitor for stool output Contact precautions medically stable to be discharged, pending SNF confirmation (2) Elevated LFTs Current Visit: Yes Status: Acute Assessment and Plan: likely related to her EtOH cirrhosis LFT downtrending follow up with gastroenterology outpatient (3) Acute kidney injury Current Visit: Yes Status: Resolved (4) History of alcohol abuse Current Visit: Yes Status: Acute Assessment and Plan: Patient reports a history of heavy alcohol use, with consumption of approximately one pint of whisky per day. She denies any alcohol use for the last few weeks. EtOH level < 10 on [facility] CIWA protocol discontinued after 2 days, home dose of diazepam resumed folic acid, thiamine, and B-complex supplementation (5) Tobacco abuse Current Visit: Yes Status: Acute Assessment and Plan: Counseling provided Nicotine replacement therapy (6) Electrolyte abnormality Current Visit: Yes Status: Resolved (7) Metabolic acidosis Current Visit: Yes Status: Resolved (8) Failure to thrive Current Visit: Yes Status: Chronic Assessment and Plan: SW note reviewed appears that patient had not been able to care for self at home, especially after her recent loss of spouse PT/OT also recommended placement to SNF pending referral results (9) DVT prophylaxis Current Visit: Yes Status: Acute Assessment and Plan: as her Plt improved, will try hep SQ - Time Spent with Patient Total time spent is greater than 50% in coordination of care (as documented) at patient's floor/unit and/or counseling patient: Greater than 35 minutes Plan of Care Discussed with: patient Internal Medicine: Result - Labs CBC & Chem 7: 08/21/18 05:34 08/23/18 05:10 Labs: BMP 08/23/18 05:10 Sodium 135 L Potassium 4.0 Chloride 102 Carbon Dioxide 29 BUN 13 Creatinine 0.49 L Glucose 109 H Calcium 8.8 Consult Discharge Plan - Plan Referrals: Simran Kauffman [Primary Care Provider] - 08/24/18 4:10 pm (8) Failure to thrive Qualifiers: Failure to thrive age range: in adult Qualified Code(s): R62.7 - Adult failure to thrive
[2018-08-24] MEDS: *HR* OxyCODONE Immed Rel 5 MG TABLET PO PRN ×5 (01:13→21:32)
[2018-08-24] MEDS: Melatonin 3 MG TABLET PO PRN (01:14)
[2018-08-24 05:52] LABS: BUN/Creatinine Ratio 20 (6-26); Blood Urea Nitrogen 9 mg/dL (6-20); Calcium 9.1 mg/dL (8.6-10.3); Carbon Dioxide 24 mEq/L (23-29); Chloride 104 mEq/L (98-107); Glucose 151 mg/dL (70-105); Osmolality,Calculated 286 (280-300); Sodium 137 mEq/L (136-145); eGFR For Non-African Americans > 60 (> 60)
[2018-08-24] MEDS: *HR* Heparin 5,000 UNIT/ML VIAL SQ SCH ×2 (06:11→17:09)
[2018-08-24] MEDS: Thiamine (B-1) 100 MG TABLET PO SCH (08:29)
[2018-08-24] MEDS: Magnesium Oxide 400 MG TABLET PO SCH ×2 (08:29→21:31)
[2018-08-24] MEDS: diazePAM 10 MG TABLET PO SCH ×2 (08:29→21:32)
[2018-08-24] MEDS: Folic Acid 1 MG TABLET PO SCH (08:29)
[2018-08-24] MEDS: Vancomycin Oral Soln 125 MG/2.5 ML UDC PO SCH ×4 (08:30→21:31)
[2018-08-24] MEDS: Nicotine 14 MG PATCH.TD24 TD SCH (08:30)
[2018-08-24] MEDS: Vitamin B Complex/Vit C/Vit E 1 EACH TABLET PO SCH (08:30)
--- NOTE | 2018-08-24 11:38 | Internal Med Progress Note ---
Hospitalist Progress Note - Encounter Date of Encounter: 08/24/18 Time of Encounter: 11:35 - Subjective Interval History: Had several small but formed BM in the last 24 hours. No abdominal pain. - Exam Vitals: Temp Pulse Resp BP Pulse Ox 97.6 F 74 16 96/64 99 08/24/18 10:38 08/24/18 10:38 08/24/18 10:38 08/24/18 10:38 08/24/18 10:38 Exam: PHYSICAL EXAMINATION: GENERAL APPEARANCE: The patient is alert, oriented and in no acute distress. HEENT: Head is normocephalic. The sinuses are nontender. Pupils are equal and reactive. The nares are patent. Oropharynx clear without lesions. NECK: Supple without lymphadenopathy. HEART: Regular rate and rhythm. LUNGS: No crackles or wheezes are heard. ABDOMEN: Soft, nontender, nondistended with good bowel sounds heard. Inguinal area is normal. EXTREMITIES: Without cyanosis, clubbing or edema. NEUROLOGICAL: Gross nonfocal. SKIN: Warm and dry without any rash. - Assessment and Plan (1) C. difficile diarrhea Current Visit: Yes Status: Acute Assessment and Plan: Patient has had numerous stools for 5 days prior to the admission with C. difficile toxin was positive. associated with severe electrolyte abnormalities which have resolved continue PO Vanc 125mg QID (Day#9) monitor for stool output Contact precautions. repeat C. diff test today, if negative, will dc contact precaution and continue Vanco po for 5 more days for a total of 14 days. medically stable to be discharged, pending SNF confirmation (2) Elevated LFTs Current Visit: Yes Status: Acute Assessment and Plan: likely related to her EtOH cirrhosis LFT downtrending follow up with gastroenterology outpatient (3) Acute kidney injury Current Visit: Yes Status: Resolved (4) History of alcohol abuse Current Visit: Yes Status: Acute Assessment and Plan: Patient reports a history of heavy alcohol use, with consumption of approximately one pint of whisky per day. She denies any alcohol use for the last few weeks. EtOH level < 10 on [facility] CIWA protocol discontinued after 2 days, home dose of diazepam resumed folic acid, thiamine, and B-complex supplementation (5) Tobacco abuse Current Visit: Yes Status: Acute Assessment and Plan: Counseling provided Nicotine replacement therapy (6) Electrolyte abnormality Current Visit: Yes Status: Resolved (7) Metabolic acidosis Current Visit: Yes Status: Resolved (8) Failure to thrive Current Visit: Yes Status: Chronic Assessment and Plan: SW note reviewed appears that patient had not been able to care for self at home, especially after her recent loss of spouse PT/OT also recommended placement to SNF pending referral results (9) DVT prophylaxis Current Visit: Yes Status: Acute Assessment and Plan: as her Plt improved, will try hep SQ - Time Spent with Patient Total time spent is greater than 50% in coordination of care (as documented) at patient's floor/unit and/or counseling patient: Greater than 35 minutes Plan of Care Discussed with: patient Internal Medicine: Result - Labs CBC & Chem 7: 08/21/18 05:34 08/24/18 05:06 Labs: BMP 08/24/18 05:06 Sodium 137 Potassium 4.0 Chloride 104 Carbon Dioxide 24 BUN 9 Creatinine 0.46 L Glucose 151 H Calcium 9.1 Consult Discharge Plan - Plan Referrals: Simran Kauffman [Primary Care Provider] - 08/24/18 4:10 pm (8) Failure to thrive Qualifiers: Failure to thrive age range: in adult Qualified Code(s): R62.7 - Adult failure to thrive
[2018-08-25] MEDS: *HR* OxyCODONE Immed Rel 5 MG TABLET PO PRN ×4 (01:27→22:03)
[2018-08-25] MEDS: Melatonin 3 MG TABLET PO PRN (01:28)
[2018-08-25] MEDS: Vitamin B Complex/Vit C/Vit E 1 EACH TABLET PO SCH (08:08)
[2018-08-25] MEDS: Ondansetron ODT 4 MG TAB.RAPDIS SL PRN ×2 (08:08→16:15)
[2018-08-25] MEDS: diazePAM 10 MG TABLET PO SCH ×2 (08:08→21:48)
[2018-08-25] MEDS: Thiamine (B-1) 100 MG TABLET PO SCH (08:08)
[2018-08-25] MEDS: Magnesium Oxide 400 MG TABLET PO SCH ×2 (08:08→21:48)
[2018-08-25] MEDS: Vancomycin Oral Soln 125 MG/2.5 ML UDC PO SCH ×4 (08:09→21:47)
[2018-08-25] MEDS: Folic Acid 1 MG TABLET PO SCH (08:09)
[2018-08-25] MEDS: Nicotine 14 MG PATCH.TD24 TD SCH (08:09)
[2018-08-25] MEDS: *HR* Heparin 5,000 UNIT/ML VIAL SQ SCH ×2 (09:42→18:03)
--- NOTE | 2018-08-25 13:41 | Internal Med Progress Note ---
Hospitalist Progress Note - Encounter Date of Encounter: 08/25/18 Time of Encounter: 13:39 - Subjective Interval History: Had several small but formed BM in the last 24 hours. No abdominal pain. - Exam Vitals: Temp Pulse Resp BP Pulse Ox 98.0 F 80 16 119/70 97 08/25/18 10:36 08/25/18 10:36 08/25/18 10:36 08/25/18 10:36 08/25/18 10:36 Exam: PHYSICAL EXAMINATION: GENERAL APPEARANCE: The patient is alert, oriented and in no acute distress. HEENT: Head is normocephalic. The sinuses are nontender. Pupils are equal and reactive. The nares are patent. Oropharynx clear without lesions. NECK: Supple without lymphadenopathy. HEART: Regular rate and rhythm. LUNGS: No crackles or wheezes are heard. ABDOMEN: Soft, nontender, nondistended with good bowel sounds heard. Inguinal area is normal. EXTREMITIES: Without cyanosis, clubbing or edema. NEUROLOGICAL: Gross nonfocal. SKIN: Warm and dry without any rash. - Assessment and Plan (1) C. difficile diarrhea Current Visit: Yes Status: Acute Assessment and Plan: Patient has had numerous stools for 5 days prior to the admission with C. difficile toxin was positive. associated with severe electrolyte abnormalities which have resolved continue PO Vanc 125mg QID (Day#9) monitor for stool output Contact precautions. repeat C. diff test today, if negative, will dc contact precaution and continue Vanco po for 5 more days for a total of 14 days. medically stable to be discharged, pending SNF confirmation (2) Elevated LFTs Current Visit: Yes Status: Acute Assessment and Plan: likely related to her EtOH cirrhosis LFT downtrending follow up with gastroenterology outpatient (3) Acute kidney injury Current Visit: Yes Status: Resolved (4) History of alcohol abuse Current Visit: Yes Status: Acute Assessment and Plan: Patient reports a history of heavy alcohol use, with consumption of approximately one pint of whisky per day. She denies any alcohol use for the last few weeks. EtOH level < 10 on present[facility] CIWA protocol discontinued after 2 days, home dose of diazepam resumed folic acid, thiamine, and B-complex supplementation (5) Tobacco abuse Current Visit: Yes Status: Acute Assessment and Plan: Counseling provided Nicotine replacement therapy (6) Electrolyte abnormality Current Visit: Yes Status: Resolved (7) Metabolic acidosis Current Visit: Yes Status: Resolved (8) Failure to thrive Current Visit: Yes Status: Chronic Assessment and Plan: SW note reviewed appears that patient had not been able to care for self at home, especially after her recent loss of spouse PT/OT also recommended placement to SNF pending referral results (9) DVT prophylaxis Current Visit: Yes Status: Acute Assessment and Plan: as her Plt improved, will try hep SQ - Time Spent with Patient Total time spent is greater than 50% in coordination of care (as documented) at patient's floor/unit and/or counseling patient: infection control. Greater than 35 minutes Plan of Care Discussed with: patient Internal Medicine: Result - Labs CBC & Chem 7: 08/21/18 05:34 08/24/18 05:06 Consult Discharge Plan - Plan Referrals: Simran Kauffman [Primary Care Provider] - 08/24/18 4:10 pm (8) Failure to thrive Qualifiers: Failure to thrive age range: in adult Qualified Code(s): R62.7 - Adult failure to thrive
[2018-08-26] MEDS ORDERED: Ibuprofen 400 MG TABLET PO ONE (02:55)
[2018-08-26] MEDS: *HR* Heparin 5,000 UNIT/ML VIAL SQ SCH ×2 (06:56→18:45)
[2018-08-26] MEDS: *HR* OxyCODONE Immed Rel 5 MG TABLET PO PRN ×4 (06:57→20:54)
[2018-08-26] MEDS: Ondansetron ODT 4 MG TAB.RAPDIS SL PRN (10:30)
[2018-08-26] MEDS: diazePAM 10 MG TABLET PO SCH ×2 (10:30→20:54)
[2018-08-26] MEDS: Thiamine (B-1) 100 MG TABLET PO SCH (10:30)
[2018-08-26] MEDS: Nicotine 14 MG PATCH.TD24 TD SCH (10:30)
[2018-08-26] MEDS: Vitamin B Complex/Vit C/Vit E 1 EACH TABLET PO SCH (10:30)
[2018-08-26] MEDS: Folic Acid 1 MG TABLET PO SCH (10:31)
[2018-08-26] MEDS: Magnesium Oxide 400 MG TABLET PO SCH ×2 (10:31→20:54)
[2018-08-26] MEDS: Vancomycin Oral Soln 125 MG/2.5 ML UDC PO SCH (10:31)
--- NOTE | 2018-08-26 11:22 | Internal Med Progress Note ---
Hospitalist Progress Note - Encounter Date of Encounter: 08/26/18 Time of Encounter: 11:19 - Subjective Interval History: Had several small but formed BM in the last 24 hours. No abdominal pain. - Exam Vitals: Temp Pulse Resp BP Pulse Ox 98.4 F 60 15 106/64 97 08/26/18 07:56 08/26/18 07:56 08/26/18 07:56 08/26/18 07:56 08/26/18 07:56 Exam: PHYSICAL EXAMINATION: GENERAL APPEARANCE: The patient is alert, oriented and in no acute distress. HEENT: Head is normocephalic. The sinuses are nontender. Pupils are equal and reactive. The nares are patent. Oropharynx clear without lesions. NECK: Supple without lymphadenopathy. HEART: Regular rate and rhythm. LUNGS: No crackles or wheezes are heard. ABDOMEN: Soft, nontender, nondistended with good bowel sounds heard. Inguinal area is normal. EXTREMITIES: Without cyanosis, clubbing or edema. NEUROLOGICAL: Gross nonfocal. SKIN: Warm and dry without any rash. - Assessment and Plan (1) C. difficile diarrhea Current Visit: Yes Status: Acute Assessment and Plan: Patient has had numerous stools for 5 days prior to the admission with C. difficile toxin was positive. associated with severe electrolyte abnormalities which have resolved continue PO Vanc 125mg QID, dose completes on 08/29 for a total of 14 days. may repeat C.diff toxin test to ensure it becomes negative. Contact precautions. (2) Elevated LFTs Current Visit: Yes Status: Acute Assessment and Plan: likely related to her EtOH cirrhosis LFT downtrending follow up with gastroenterology outpatient (3) Acute kidney injury Current Visit: Yes Status: Resolved (4) History of alcohol abuse Current Visit: Yes Status: Acute Assessment and Plan: Patient reports a history of heavy alcohol use, with consumption of approximately one pint of whisky per day. She denies any alcohol use for the last few weeks. EtOH level < 10 on present[facility] CIWA protocol discontinued after 2 days, home dose of diazepam resumed folic acid, thiamine, and B-complex supplementation (5) Tobacco abuse Current Visit: Yes Status: Acute Assessment and Plan: Counseling provided Nicotine replacement therapy (6) Electrolyte abnormality Current Visit: Yes Status: Resolved (7) Metabolic acidosis Current Visit: Yes Status: Resolved Assessment and Plan: Likely due to a combination of lactic acidosis and starvation ketoacidosis. A1c of 4.6 improved with current mx for C diff colitis and BERT. (8) Failure to thrive Current Visit: Yes Status: Chronic Assessment and Plan: Pt had recent loss of family member, she suffered from severe PTSD and adjustment disorder. her nutritional status is poor. She is currently unable to take care of herself including cooking, maintaining personal hygiene, shopping, doing laundry, cleaning the house, and taking medicine. She needs to be placed on intermediate care. PT/OT also recommended placement to SNF pending referral results (9) DVT prophylaxis Current Visit: Yes Status: Acute Assessment and Plan: as her Plt improved, will try hep SQ - Time Spent with Patient Total time spent is greater than 50% in coordination of care (as documented) at patient's floor/unit and/or counseling patient: Greater than 35 minutes Plan of Care Discussed with: patient Internal Medicine: Result - Labs CBC & Chem 7: 08/21/18 05:34 08/24/18 05:06 Consult Discharge Plan - Plan Referrals: Simran Kauffman [Primary Care Provider] - 08/24/18 4:10 pm (8) Failure to thrive Qualifiers: Failure to thrive age range: in adult Qualified Code(s): R62.7 - Adult failure to thrive
[2018-08-27] MEDS: Melatonin 3 MG TABLET PO PRN (01:54)
[2018-08-27] MEDS: *HR* OxyCODONE Immed Rel 5 MG TABLET PO PRN ×6 (01:54→23:10)
[2018-08-27 04:40] LABS: Basophils # 0.1 K/mcL (0.0-0.2); Basophils % 1.2 %; Eosinophils # 0.1 K/mcL (0.0-0.6); Eosinophils % 1.7 %; Hematocrit 30.3 % (35.3-44.9); Hemoglobin 9.6 g/dL (11.5-15.4); Immature Granulocytes % 0.7 % (0-4); Lymphocytes # 2.4 K/mcL (0.6-4.6); Lymphocytes % 29.5 %; Mean Corpuscular HGB Conc 31.7 g/dL (31.6-35.5); Mean Corpuscular Hemoglobin 32.3 pg (28.0-33.3); Mean Platelet Volume 10.9 fL (9.4-12.4); Monocytes # 0.7 K/mcL (0.0-1.3); Monocytes % 8.6 %; Neutrophils # 4.8 K/mcL (1.6-8.9); Platelet Count 256 K/mcL (140-400); Red Blood Count 2.97 M/mcL (3.82-4.97); Segmented Neutrophils % 58.3 %
[2018-08-27 05:00] LABS: BUN/Creatinine Ratio 26 (6-26); Blood Urea Nitrogen 12 mg/dL (6-20); Calcium 9.2 mg/dL (8.6-10.3); Carbon Dioxide 25 mEq/L (23-29); Chloride 101 mEq/L (98-107); Glucose 94 mg/dL (70-105); Osmolality,Calculated 282 (280-300); Potassium 4.4 mEq/L (3.5-5.1); Sodium 136 mEq/L (136-145); eGFR For Non-African Americans > 60 (> 60)
[2018-08-27] MEDS: *HR* Heparin 5,000 UNIT/ML VIAL SQ SCH ×2 (06:21→18:57)
[2018-08-27] MEDS: Nicotine 14 MG PATCH.TD24 TD SCH (09:46)
[2018-08-27] MEDS: Thiamine (B-1) 100 MG TABLET PO SCH (09:46)
[2018-08-27] MEDS: Folic Acid 1 MG TABLET PO SCH (09:46)
[2018-08-27] MEDS: Magnesium Oxide 400 MG TABLET PO SCH ×2 (09:46→21:45)
[2018-08-27] MEDS: Vitamin B Complex/Vit C/Vit E 1 EACH TABLET PO SCH (09:46)
[2018-08-27] MEDS: diazePAM 10 MG TABLET PO SCH ×2 (09:46→21:45)
--- NOTE | 2018-08-27 15:37 | Internal Med Progress Note ---
Hospitalist Progress Note - Encounter Date of Encounter: 08/27/18 Time of Encounter: 15:34 - Subjective Interval History: Seen and examined at bedside. Says she feels "okay". Says she wants to go home and doesn't want to go to SNF. Denied loose stool. No ABD pain - Exam Vitals: Temp Pulse Resp BP Pulse Ox 97.9 F 85 14 92/51 94 08/27/18 11:43 08/27/18 11:43 08/27/18 11:43 08/27/18 11:43 08/27/18 11:43 Exam: PHYSICAL EXAMINATION: GENERAL APPEARANCE: The patient is alert, oriented and in no acute distress. HEENT: Head is normocephalic. The sinuses are nontender. Pupils are equal and reactive. The nares are patent. Oropharynx clear without lesions. NECK: Supple without lymphadenopathy. HEART: Regular rate and rhythm. LUNGS: No crackles or wheezes are heard. ABDOMEN: Soft, nontender, nondistended with good bowel sounds heard. Inguinal area is normal. EXTREMITIES: Without cyanosis, clubbing or edema. NEUROLOGICAL: Gross nonfocal. SKIN: Warm and dry without any rash. - Assessment and Plan (1) Cognitive impairment Current Visit: Yes Status: Acute Assessment and Plan: recently and patient suffered from severe PTSD and adjustment disorder in the past. Nutritional status is poor and currently unable to take care of herself including cooking, maintaining personal hygiene, shopping, doing laundry, cleaning the house, and taking medicine. PT/OT recommended placement to SNF. Discussed with daughter on 08/27/2018 and patient apparently has had decline in cognition over the last several years. This seems to have worsened with the passing of her . Daughter reports that patient's home is uncuffed and garza were covered in stool from patient. Daughter reports increasing forgetfulness and periods of confusion. Suspect multifactorial with possible underlying mental health component combined with chronic alcoholism and recent passing of her . Consult psychiatry for further recommendations. (2) Failure to thrive Current Visit: Yes Status: Chronic Assessment and Plan: recently and patient suffered from severe PTSD and adjustment disorder. Nutritional status is poor and currently unable to take care of herself including cooking, maintaining personal hygiene, shopping, doing laundry, cleaning the house, and taking medicine. She needs to be placed on intermediate care. PT/OT also recommended placement to SNF (3) C. difficile diarrhea Current Visit: Yes Status: Acute Assessment and Plan: had numerous stools for 5 days prior to the admission with C. difficile toxin was positive. Associated with severe electrolyte abnormalities which have resolved. Continue PO Vanc 125mg QID, dose completes on 08/29 for a total of 14 days.Contact precautions. (4) Elevated LFTs Current Visit: Yes Status: Acute Assessment and Plan: likely related to her EtOH cirrhosis. LFT downtrending. Follow up with gastroenterology outpatient (5) Acute kidney injury Current Visit: Yes Status: Resolved Assessment and Plan: Suspect pre-renal etiology from combination of frequent diarrhea, vomiting, and poor oral intake with C. diff infection. Renal function normalized with IVF. Avoid nephrotoxins (6) History of alcohol abuse Current Visit: Yes Status: Acute Assessment and Plan: Patient reports a history of heavy alcohol use, with consumption of approximately one pint of whisky per day. She denies any alcohol use for the last few weeks. [facility] after 2 days, home dose of diazepam resumed folic acid, thiamine, and B-complex supplementation (7) Tobacco abuse Current Visit: Yes Status: Acute Assessment and Plan: Counseling provided Nicotine replacement therapy (8) Electrolyte abnormality Current Visit: Yes Status: Resolved Assessment and Plan: In the setting of concurrent C. difficile diarrhea. Probably contributed by malnutrition as well given the lack of self-care and hx of EtOH abuse. Now resolved (9) Metabolic acidosis Current Visit: Yes Status: Resolved Assessment and Plan: Likely due to a combination of lactic acidosis and starvation ketoacidosis. Improved with TREATING C diff colitis and BERT. DVT Prophylaxis: heparin - Time Spent with Patient Total time spent is greater than 50% in coordination of care (as documented) at patient's floor/unit and/or counseling patient: Internal Medicine: Result - Labs CBC & Chem 7: 08/27/18 03:52 08/27/18 03:52 Labs: Short CBC 08/27/18 Range/Units 03:52 WBC 8.2 D (4.3-11.1) K/mcL Hgb 9.6 L (11.5-15.4) g/dL Hct 30.3 L (35.3-44.9) % Plt Count 256 D (140-400) K/mcL Neutrophils # 4.8 (1.6-8.9) K/mcL BMP 08/27/18 03:52 Sodium 136 Potassium 4.4 Chloride 101 Carbon Dioxide 25 BUN 12 Creatinine 0.46 L Glucose 94 Calcium 9.2 Consult Discharge Plan - Plan Referrals: Simran Kauffman [Primary Care Provider] - 08/24/18 4:10 pm (2) Failure to thrive Qualifiers: Failure to thrive age range: in adult Qualified Code(s): R62.7 - Adult failure to thrive
[2018-08-28] MEDS: *HR* OxyCODONE Immed Rel 5 MG TABLET PO PRN ×4 (03:27→18:12)
[2018-08-28] MEDS: *HR* Heparin 5,000 UNIT/ML VIAL SQ SCH ×2 (05:32→18:12)
[2018-08-28] MEDS: Nicotine 14 MG PATCH.TD24 TD SCH (08:16)
[2018-08-28] MEDS: Thiamine (B-1) 100 MG TABLET PO SCH (08:16)
[2018-08-28] MEDS: Folic Acid 1 MG TABLET PO SCH (08:17)
[2018-08-28] MEDS: Magnesium Oxide 400 MG TABLET PO SCH ×2 (08:17→22:30)
[2018-08-28] MEDS: diazePAM 10 MG TABLET PO SCH ×2 (08:17→22:30)
[2018-08-28] MEDS: Vitamin B Complex/Vit C/Vit E 1 EACH TABLET PO SCH (08:17)
--- NOTE | 2018-08-28 14:16 | Internal Med Progress Note ---
Hospitalist Progress Note - Encounter Date of Encounter: 08/28/18 Time of Encounter: 14:32 - Subjective Interval History: Seen and examined at bedside. Says she feels about the same; uneventful night. Cont to deny loose stool. Says she doesn't have much of an appetite - Exam Vitals: Temp Pulse Resp BP Pulse Ox 98.2 F 64 14 97/59 97 08/28/18 10:47 08/28/18 10:47 08/28/18 10:47 08/28/18 10:47 08/28/18 10:47 Exam: PHYSICAL EXAMINATION: GENERAL APPEARANCE: The patient is alert, oriented and in no acute distress. HEENT: Head is normocephalic. The sinuses are nontender. Pupils are equal and reactive. The nares are patent. Oropharynx clear without lesions. NECK: Supple without lymphadenopathy. HEART: Regular rate and rhythm. LUNGS: No crackles or wheezes are heard. ABDOMEN: Soft, nontender, nondistended with good bowel sounds heard. Inguinal area is normal. EXTREMITIES: Without cyanosis, clubbing or edema. NEUROLOGICAL: Gross nonfocal. SKIN: Warm and dry without any rash. - Assessment and Plan (1) Cognitive impairment Current Visit: Yes Status: Acute Assessment and Plan: symptomatic with periods of confusion, inappropriate behavior and inability to care for herself. recently and patient has suffered from severe PTSD and adjustment disorder in the past. Nutritional status is poor and currently unable to take care of herself including cooking, maintaining personal hygiene, shopping, doing laundry, cleaning the house, and taking medicine. PT/OT recommended placement to SNF. Discussed with daughter on 08/27/2018 and patient apparently has had decline in cognition over the last several years. This seems to have worsened with the passing of her . Daughter reports that patient's home is unkept and garza were covered in patient's feces. Daughter reports increasing forgetfulness and periods of confusion. Suspect multifactorial with possible underlying mental health component combined with chronic alcoholism and recent passing of her . Consult psychiatry for further recommendations. (2) Failure to thrive Current Visit: Yes Status: Chronic Assessment and Plan: recently and patient suffered from severe PTSD and adjustment disorder. Nutritional status is poor and currently unable to take care of herself including cooking, maintaining personal hygiene, shopping, doing laundry, cleaning the house, and taking medicine. Daughter/POA feels she needs to be placed on intermediate care. PT/OT also recommended placement to SNF (3) C. difficile diarrhea Current Visit: Yes Status: Acute Assessment and Plan: had numerous stools for 5 days prior to the admission with C. difficile toxin was positive. Associated with severe electrolyte abnormalities which have resolved. Complete 9 day course PO vanco with resolution of loose stool (4) Elevated LFTs Current Visit: Yes Status: Acute Assessment and Plan: likely related to her EtOH cirrhosis. LFT downtrending. Follow up with gastroenterology outpatient (5) Acute kidney injury Current Visit: Yes Status: Resolved Assessment and Plan: Suspect pre-renal etiology from combination of frequent diarrhea, vomiting, and poor oral intake with C. diff infection. Renal function normalized with IVF. Avoid nephrotoxins (6) History of alcohol abuse Current Visit: Yes Status: Acute Assessment and Plan: Patient reports a history of heavy alcohol use, with consumption of approximately one pint of whisky per day. She denies any alcohol use for the last few weeks. EtOH level < 10 on [facility] CIWA protocol discontinued after 2 days, home dose of diazepam resumed folic acid, thiamine, and B-complex supplementation (7) Tobacco abuse Current Visit: Yes Status: Acute Assessment and Plan: Counseling provided Nicotine replacement therapy (8) Electrolyte abnormality Current Visit: Yes Status: Resolved Assessment and Plan: In the setting of concurrent C. difficile diarrhea. Probably contributed by malnutrition as well given the lack of self-care and hx of EtOH abuse. Now resolved (9) Metabolic acidosis Current Visit: Yes Status: Resolved Assessment and Plan: Likely due to a combination of lactic acidosis and starvation ketoacidosis. Improved with TREATING C diff colitis and BERT. DVT Prophylaxis: heparin - Time Spent with Patient Total time spent is greater than 50% in coordination of care (as documented) at patient's floor/unit and/or counseling patient: Internal Medicine: Result - Labs CBC & Chem 7: 08/27/18 03:52 08/27/18 03:52 Consult Discharge Plan - Plan Referrals: Simran Kauffman [Primary Care Provider] - 08/24/18 4:10 pm _ (2) Failure to thrive Qualifiers: Failure to thrive age range: in adult Qualified Code(s): R62.7 - Adult failure to thrive
[2018-08-29] MEDS: *HR* OxyCODONE Immed Rel 5 MG TABLET PO PRN ×5 (03:59→23:07)
[2018-08-29] MEDS: *HR* Heparin 5,000 UNIT/ML VIAL SQ SCH ×2 (06:27→18:15)
[2018-08-29 06:39] LABS: Hematocrit 32.3 % (35.3-44.9); Hemoglobin 10.1 g/dL (11.5-15.4); Mean Corpuscular HGB Conc 31.3 g/dL (31.6-35.5); Mean Corpuscular Hemoglobin 32.4 pg (28.0-33.3); Mean Corpuscular Volume 103.5 fL (83.0-100.0); Mean Platelet Volume 10.5 fL (9.4-12.4); Platelet Count 240 K/mcL (140-400); Red Blood Count 3.12 M/mcL (3.82-4.97); Red Cell Distribution Width 14.2 % (11.5-14.5)
[2018-08-29 07:00] LABS: BUN/Creatinine Ratio 31 (6-26); Blood Urea Nitrogen 14 mg/dL (6-20); Calcium 9.3 mg/dL (8.6-10.3); Carbon Dioxide 25 mEq/L (23-29); Chloride 105 mEq/L (98-107); Glucose 107 mg/dL (70-105); Osmolality,Calculated 287 (280-300); Potassium 4.2 mEq/L (3.5-5.1); Sodium 138 mEq/L (136-145); eGFR For Non-African Americans > 60 (> 60)
[2018-08-29] MEDS: Nicotine 14 MG PATCH.TD24 TD SCH (08:54)
[2018-08-29] MEDS: Folic Acid 1 MG TABLET PO SCH (08:55)
[2018-08-29] MEDS: diazePAM 10 MG TABLET PO SCH ×2 (08:55→20:51)
[2018-08-29] MEDS: Vitamin B Complex/Vit C/Vit E 1 EACH TABLET PO SCH (08:55)
[2018-08-29] MEDS: Thiamine (B-1) 100 MG TABLET PO SCH (08:55)
[2018-08-29] MEDS: Magnesium Oxide 400 MG TABLET PO SCH ×2 (08:55→20:51)
--- NOTE | 2018-08-29 09:01 | Internal Med Progress Note ---
Hospitalist Progress Note - Encounter Date of Encounter: 08/29/18 Time of Encounter: 08:59 - Subjective Interval History: Patient seen and examined not syndrome with patient patient oriented to person place and time and she noticed after today have been in the hospital no acute issues no shortness of breath and no more diarrhea awake and psych evaluation and then placement - Exam Vitals: Temp Pulse Resp BP Pulse Ox 98.2 F 80 13 113/73 94 08/29/18 05:58 08/29/18 05:58 08/29/18 05:58 08/29/18 05:58 08/29/18 05:58 Exam: PHYSICAL EXAMINATION: GENERAL APPEARANCE: The patient is alert, oriented and in no acute distress. HEENT: Head is normocephalic. The sinuses are nontender. Pupils are equal and reactive. The nares are patent. Oropharynx clear without lesions. NECK: Supple without lymphadenopathy. HEART: Regular rate and rhythm. LUNGS: No crackles or wheezes are heard. ABDOMEN: Soft, nontender, nondistended with good bowel sounds heard. Inguinal area is normal. EXTREMITIES: Without cyanosis, clubbing or edema. NEUROLOGICAL: Gross nonfocal. SKIN: Warm and dry without any rash. - Assessment and Plan (1) Encephalopathy Current Visit: No Status: Acute Assessment and Plan: Clinically much better patient is not confused today awaiting psych evaluation then placement (2) Elevated LFTs Current Visit: Yes Status: Acute (3) Alcoholism Current Visit: No Status: Chronic Assessment and Plan: Patient is motivated to stop drinking (4) Acute kidney injury Current Visit: Yes Status: Resolved Assessment and Plan: Resolved creatinine 0.45 (5) History of cirrhosis of liver Current Visit: No Status: Chronic Assessment and Plan: Cirrhosis secondary to alcohol abuse in the past (6) C. difficile diarrhea Current Visit: Yes Status: Resolved Assessment and Plan: Resolved received 9 days of antibiotic treatment DVT Prophylaxis: heparin - Time Spent with Patient Total time spent is greater than 50% in coordination of care (as documented) at patient's floor/unit and/or counseling patient: Internal Medicine: Result - Labs CBC & Chem 7: 08/29/18 06:15 08/29/18 06:15 Labs: Short CBC 08/29/18 Range/Units 06:15 WBC 7.2 (4.3-11.1) K/mcL Hgb 10.1 L (11.5-15.4) g/dL Hct 32.3 L (35.3-44.9) % Plt Count 240 (140-400) K/mcL BMP 08/29/18 06:15 Sodium 138 Potassium 4.2 Chloride 105 Carbon Dioxide 25 BUN 14 Creatinine 0.45 L Glucose 107 H Calcium 9.3 Consult Discharge Plan - Plan Referrals: Simran Kauffman [Primary Care Provider] - 08/24/18 4:10 pm
--- NOTE | 2018-08-29 14:26 | Consult Note ---
Date of Encounter: 08/29/18 Time of Encounter: 12:45 Assessment & Recommendation (1) Alcoholism Current visit: Yes Status: Chronic Assessment & Recommendation: Patient can be assessed and referred to inpatient or outpatient SUDS treatent. AA is also suggested. Reassessment of her antidepressant when she had attained sobriety is recommended. History of Present Illness Requesting Physician: Wayne Acosta MD Reason for consult: Altered Mental status History of present illness: Ms. Fischer is a 58 year old female who was admitted to a medicine floor on 08/16/18 due to cognitive problems, chronic alcoholism, inability to care for herself and periods of confusion. Patient was described by her daughter as living in an unkempt house with feces on garza. Patient described as driniking on a regular basis, a pint of whiskey a day. Patient's in June of 2018 2 weeks following a diagnosis of small cell CA. Pt. was devasted by his as she had been in some type of relationship all of her adult life. Patient was diagnosed with C difficile while in the hospital which was the cause of her sever diarrhea and malnutrition. Patient was being treated outpatient for anxiety and depressioni with Zoloft 200mg/d. CC: Wayne Acosta MD Past Med Surg Social Fam HX - Past Medical History Medical history: arthritis, cirrhosis, COPD, GERD, GI bleed, liver disease, osteoporosis, seizures, other - Past Psychiatric History Psychiatric history: Reports: anxiety, depression, panic disorder, PTSD Past psychiatric history details: Patient seen on outpatient basis, was taking Zoloftr 200mg/d prior to admission. - Past Surgical History Surgical History: breast surgery - Social History Smoking Status: Current every day smoker Smokeless Tobacco Status: No (0.5 pack/ day) Alcohol use: recent (Reports no alcohol use in weeks; previously consumed a pint of whisky/day) Drug use: prescription drug abuse - Family History Maternal Grandfather Hx Family Endocrine Disorder: Yes (Diabetes) Mother Adopted: No Living Status: Still Living Hx Family Cardiac Disorders: Yes (CA, CAD with stent placement, CVA) Medications & Allergies Rabeprazole Sodium [Aciphex] 20 mg PO DAILY 08/15/18 [History] diazePAM [Valium] 10 mg PO BID 08/15/18 [History] OxyCODONE Immed Rel [Roxicodone 10 MG] 10 mg PO Q4H PRN 08/16/18 [History] Sertraline [Zoloft] 200 mg PO DAILY 08/16/18 [History] Allergy/AdvReac Type Severity Reaction Status Date / Time No Known Allergies Allergy Verified 09/29/15 07:55 Review of Systems Constitutional: Reports: weakness, weight change Eyes: Denies: eye pain, vision change Ears, Nose, Throat: Denies: ear pain, throat pain, dental pain, hearing loss, congestion Cardiovascular: Denies: chest pain, palpitations, dyspnea on exertion Respiratory: Denies: cough, dyspnea, wheezes Gastrointestinal: Reports: diarrhea Genitourinary female: Reports: other (Acute kidney injury due to diarrhea, vomiting and C. difficile). Denies: urgency, dysuria, frequency, abnormal menses, dyspareunia Musculoskeletal: Reports: other Integumentary: Denies: rash, lesions, pruritus Neurological: Denies: headache, weakness, numbness, memory loss Psychiatric: Reports: anxiety Endocrine: Denies: fatigue, heat or cold intolerance Hematologic/Lymphatic: Denies: easy bruising, lymphadenopathy Allergic/Immunologic: Denies: urticaria, itchy eyes Psychiatry Exam - Constitutional Vitals: Temp Pulse Resp BP Pulse Ox 98.0 F 78 15 108/70 96 08/29/18 10:23 08/29/18 10:23 08/29/18 10:23 08/29/18 10:23 08/29/18 10:23 General appearance: malnourished - Musculoskeletal Gait: normal Station: relaxed Strength & Tone: mild weakness - Psychiatric Patient Orientation: Yes Person, Yes Time, Yes Place Level of alertness: Alert Behavior: calm, cooperative Psychomotor activity: Normal Eye Contact: Maintains Eye Contact Mood Description: Anxious Patient description of mood: Patient describes feeling anious and not knowing what to do with herself. Affect description: congruent with mood, full range Speech Volume: Normal Speech pattern: normal rate, normal rhythm, normal tone, fluent, spontaneous Language & Vocabulary: consistent with education Thought Process: Linear, Goal Oriented Thought Content: No Suicidal ideation, No Homicidal ideation, No Overt delusions Perceptual Disturbances: No Auditory hallucinations, No Visual hallucinations Attention Span Ability: Capable of Focused Attention Memory Description: Grossly Intact Patient Reliability: Reliable Historian Fund of knowledge: Yes abstraction ability, Yes aware of current events Intelligence Estimate: Average Judgment: Fair Insight: Partial (Patient scored a 30 on MMSE) Results - Labs Labs: Laboratory Last Values WBC 7.2 K/mcL (4.3-11.1) 08/29/18 06:15 RBC 3.12 M/mcL (3.82-4.97) L 08/29/18 06:15 Hgb 10.1 g/dL (11.5-15.4) L 08/29/18 06:15 Hct 32.3 % (35.3-44.9) L 08/29/18 06:15 MCV 103.5 fL (83.0-100.0) H 08/29/18 06:15 MCH 32.4 pg (28.0-33.3) 08/29/18 06:15 MCHC 31.3 g/dL (31.6-35.5) L 08/29/18 06:15 RDW 14.2 % (11.5-14.5) 08/29/18 06:15 Plt Count 240 K/mcL (140-400) 08/29/18 06:15 MPV 10.5 fL (9.4-12.4) 08/29/18 06:15 Immature Gran % 0.7 % (0-4) 08/27/18 03:52 Seg Neutrophils % 58.3 % 08/27/18 03:52 Lymphocytes % 29.5 % 08/27/18 03:52 Monocytes % 8.6 % 08/27/18 03:52 Eosinophils % 1.7 % 08/27/18 03:52 Basophils % 1.2 % 08/27/18 03:52 Neutrophils # 4.8 K/mcL (1.6-8.9) 08/27/18 03:52 Lymphocytes # 2.4 K/mcL (0.6-4.6) 08/27/18 03:52 Monocytes # 0.7 K/mcL (0.0-1.3) 08/27/18 03:52 Eosinophils # 0.1 K/mcL (0.0-0.6) 08/27/18 03:52 Basophils # 0.1 K/mcL (0.0-0.2) 08/27/18 03:52 Nucleated RBCs/100 WBC 0.5 /100 WBC (0) H 08/17/18 05:47 Platelet Estimate Decreased (Normal) L 08/17/18 05:47 Immature Plt Fraction 13.0 % (1.1-6.1) H 08/19/18 05:55 VBG pH 7.43 pH Units (7.32-7.42) H 08/16/18 05:01 VBG pCO2 29 mmHg (41-51) L 08/16/18 05:01 VBG pO2 171 mmHg (25-50) H 08/16/18 05:01 VBG HCO3 19 mEq/L (21-27) L 08/16/18 05:01 Sodium 138 mEq/L (136-145) 08/29/18 06:15 Potassium 4.2 mEq/L (3.5-5.1) 08/29/18 06:15 Chloride 105 mEq/L (98-107) 08/29/18 06:15 Carbon Dioxide 25 mEq/L (23-29) 08/29/18 06:15 BUN 14 mg/dL (6-20) 08/29/18 06:15 Creatinine 0.45 mg/dL (0.60-1.20) L 08/29/18 06:15 Est GFR ( Amer) > 60 (> 60) 08/29/18 06:15 Est GFR (Non-Af Amer) > 60 (> 60) 08/29/18 06:15 BUN/Creatinine Ratio 31 (6-26) H 08/29/18 06:15 Glucose 107 mg/dL (70-105) H 08/29/18 06:15 POC Glucose 132 mg/dL (70-99) H 08/17/18 11:45 Est Mean Plasma Glucose 85 mg/dl 08/16/18 00:15 Hemoglobin A1c 4.6 % (-5.6) 08/16/18 00:15 Calculated Osmolality 287 (280-300) 08/29/18 06:15 Lactic Acid 2.1 mmol/L (0.5-2.2) 08/16/18 14:29 Calcium 9.3 mg/dL (8.6-10.3) 08/29/18 06:15 Phosphorus 4.0 mg/dL (2.7-4.5) 08/17/18 05:47 Magnesium 1.6 mg/dL (1.6-2.6) 08/19/18 05:55 Total Bilirubin 1.1 mg/dL (0.3-1.0) H 08/17/18 05:47 AST 80 Units/L (13-39) H 08/17/18 05:47 ALT 56 Units/L (7-52) H 08/17/18 05:47 Alkaline Phosphatase 137 Units/L (34-104) H 08/17/18 05:47 Ammonia 52 mcmol/L (16-53) 08/22/18 10:32 Serum Total Protein 5.1 g/dL (6.4-8.9) L 08/17/18 05:47 Albumin 3.4 g/dL (3.5-5.7) L 08/17/18 05:47 Globulin 1.7 g/dL (2.4-3.5) L 08/17/18 05:47 Albumin/Globulin Ratio 2.0 (1.1-2.2) 08/17/18 05:47 Lipase 101 Units/L (11-82) H 08/15/18 14:22 Beta-Hydroxybutyric Acd > 2.00 mmol/L (0.02-0.27) H 08/15/18 16:24 Urine Color Dark Yellow (Yellow) 08/15/18 19:37 Urine Clarity Clear (Clear) 08/15/18 19:37 Urine pH 6.0 pH Units (5.0-8.0) 08/15/18 19:37 Ur Specific [place] 1.026 (1.010-1.025) H 08/15/18 19:37 Urine Protein 30 mg/dL (Neg-Trace) H 08/15/18 19:37 Urine Glucose (UA) 100 mg/dL (Normal) H 08/15/18 19:37 Urine Ketones >=160 mg/dL (Negative) H 08/15/18 19:37 Urine Blood Trace (Negative) H 08/15/18 19:37 Urine Nitrite Negative (Negative) 08/15/18 19:37 Urine Bilirubin Moderate (Negative) H 08/15/18 19:37 Urine Urobilinogen Normal mg/dL (Normal) 08/15/18 19:37 Ur Leukocyte Esterase Negative (Negative) 08/15/18 19:37 Urine Microscopic RBC 3-5 per hpf (0-3) H 08/15/18 19:37 Urine Microscopic WBC 0-3 per hpf (0-3) 08/15/18 19:37 Ur Squamous Epith Cells Many per lpf (None-Few) H 08/15/18 19:37 Urine Bacteria None Seen per hpf (None-Few) 08/15/18 19:37 Hyaline Casts None Seen per lpf (None-Few) 08/15/18 19:37 Ur Culture Indicated? NO (NO) 08/15/18 19:37 Stl C. diff Tox B Gene Positive (Negative) A 08/15/18 17:14 Urine Opiates Screen Negative ng/mL (Hslatb=003) 08/15/18 19:37 Ur Barbiturates Screen Negative ng/mL (Bfdpox=219) 08/15/18 19:37 Ur Phencyclidine Scrn Negative ng/mL (Cutoff=25) 08/15/18 19:37 Ur Amphetamines Screen Negative ng/mL (Pmgixt=7525) 08/15/18 19:37 U Benzodiazepines Scrn Positive ng/mL (Cesqja=824) H 08/15/18 19:37 Urine Cocaine Screen Negative ng/mL (Cutoff= 300) 08/15/18 19:37 U Marijuana (THC) Screen Negative ng/mL (Cutoff = 50) 08/15/18 19:37 Ur Drug Screen Interp See Below 08/15/18 19:37 Ethyl Alcohol < 10 mg/dL (Less than 10) 08/15/18 22:39 - Impressions Patients mental status today is within normal limits. Her MMSE score is 30 (did not miss any questions). Pt. mostly endorses anxiety and wonderment about what to do with herslef since her is . Patient's poor nutrition, alcohol use with possible vitamin deficiency and cumlative effects of chronic alchol use most likely contributed to her altered mental status. Patient may require more extensive cogntive testin to uncover whether or not a dementia is developing. Based on her MMSE she showing no memory deficit. SUDS treatment in in or outpatient setting would benefit patient. Interms of her antidepressant, the Zoloft iwill work better when she is not drinking and when she takes it consistently. Medication compliance is necessary for a full therapeutic response. Consult Discharge Plan - Plan Additional Instructions: SUDS assessment and AA. Formal Cognitive testing. Referrals: Simran Kauffman [Primary Care Provider] - 08/24/18 4:10 pm
[2018-08-30] MEDS: *HR* OxyCODONE Immed Rel 5 MG TABLET PO PRN ×2 (04:04→09:08)
[2018-08-30] MEDS: *HR* Heparin 5,000 UNIT/ML VIAL SQ SCH (05:01)
[2018-08-30] MEDS: Nicotine 14 MG PATCH.TD24 TD SCH (09:07)
[2018-08-30] MEDS: Magnesium Oxide 400 MG TABLET PO SCH (09:08)
[2018-08-30] MEDS: Thiamine (B-1) 100 MG TABLET PO SCH (09:09)
[2018-08-30] MEDS: Folic Acid 1 MG TABLET PO SCH (09:10)
[2018-08-30] MEDS: diazePAM 10 MG TABLET PO SCH (09:10)
[2018-08-30] MEDS: Vitamin B Complex/Vit C/Vit E 1 EACH TABLET PO SCH (09:10)
[2018-08-30] MEDS ORDERED: *HR* OxyCODONE Immed Rel 5 MG TABLET PO PRN (15:35)
[2018-08-30 16:20] VITALS: BP 132/69
--- NOTE | 2018-08-30 16:50 | Discharge Summary ---
Orders not resulted at time of discharge: Pending orders 09/01/18 04:00 BMP [Basic Metabolic Panel] Q3D Complete Blood Count w/o Diff [HEME] Q3D Date of Encounter: 08/30/18 Time of Encounter: 16:42 - Discharge Diagnosis (1) C. difficile diarrhea Priority: Primary Status: Resolved (2) Encephalopathy Priority: Secondary Status: Acute (3) Elevated LFTs Priority: Secondary Status: Acute (4) Acute kidney injury Priority: Secondary Status: Resolved (5) History of alcohol abuse Priority: Secondary Status: Acute (6) Tobacco abuse Priority: Secondary Status: Acute (7) Electrolyte abnormality Priority: Secondary Status: Resolved (8) Metabolic acidosis Priority: Secondary Status: Resolved (9) Failure to thrive Priority: Secondary Status: Chronic Qualifiers: Failure to thrive age range: in adult Qualified Code(s): R62.7 - Adult failure to thrive (10) Cognitive impairment Priority: Secondary Status: Acute Hospital course: Ms. Fischer is a 58 year old female with a history of COPD, GERD, GI bleed, liver disease, EtOH abuse, anxiety, and depression. She presented to the ED complaining of nausea/vomiting/diarrhea x 4 days. She reports up to 15 loose stools per day. Her nausea has improved to the point that she was able to tolerate some PO liquid intake today. Patient is a recent , as her on 07/23/2018 approximately 2 weeks after being diagnosed with small cell lung cancer. He appears to have been the primary water resource manager at the home, and the patient expresses feeling lost with regards to what she needs to do to ensure she is taken care of financially and medically, as preparations had not been made prior to his . Since her 's , patient has reportedly not been doing well, with concern for recurrent falls and lack of self-care. She does admit that she has not taken any of her medications in at least two days. She has 3 children, but is not in contact with at least one of them. She does report some difficult family interactions between her late 's children and herself. Initial workup in the ED revealed numerous laboratory abnormalities, includeing elevated WBC count of 11.2. VBG demonstrated pH 7.28, pCO2 24, pO2 77, and HCO3 11. Other significant abnormalities were as follows: sodium 129, BUN 36, creatinine 1.21, glucose 257, lactic acid 3.2, calcium 8.5, total bilirubin 3.4, AST 223, ALT 118, alkaline phosphatase 192, lipase 101, and beta-hydroxybutyric acid >2.00. Urinalysis was significant for proteinuria, glucosuria, ketonuria, and moderate bilirubin. C. difficile stool toxin was positive. Patient was admitted to the hospitalist service for management of DKA and C. difficile infection. Patient was evaluated and examined while in the ED. She is awake and alert, with no acute complaints of nausea. She does complain of 6-7/10 back pain secondary to arthritis. She is intermittently tearful, particularly when discussing her 's recent and her difficult family situation. She was admitted for further workup and treatment. She was started on oral vancomycin, treated with IV fluids. electrolytes, mental status, diarrhea, renal function improved wit IV fluids and oral vancomycin. Psychiatry evaluated patient and recommends SUDS assessment and AA. Formal Cognitive testing. PT/OT recommended SNF placement. There was placement issues which delayed discharge. She was then approved for SNF and discharged in stable condition. Recheck electrolytes. - Time Spent with Patient Total time spent providing and/or coordinating discharge services: - Discharge Medications Prescriptions: diazePAM [Valium] 10 mg PO BID 3 Days #6 tablet OxyCODONE Immed Rel [Roxicodone 10 MG] 10 mg PO Q4H PRN 2 Days #12 tablet PRN Reason: Pain Home Medications: Rabeprazole Sodium [Aciphex] 20 mg PO DAILY 08/15/18 [History] Sertraline [Zoloft] 200 mg PO DAILY 08/16/18 [History] Folic Acid 1 mg PO DAILY tablet 08/30/18 [Rx] Magnesium Oxide [Mag-Ox] 400 mg PO BID tablet 08/30/18 [Rx] Melatonin 3 mg PO HS PRN tablet 08/30/18 [Rx] Nicotine Patch [Nicoderm] 14 mg TD DAILY patch.td24 08/30/18 [Rx] Ondansetron ODT [Zofran ODT] 4 mg SL Q6HR PRN tab.rapdis 08/30/18 [Rx] OxyCODONE Immed Rel [Roxicodone 10 MG] 10 mg PO Q4H PRN 2 Days #12 tablet 08/30/18 [Rx] Thiamine (B-1) [Vitamin B-1] 100 mg PO DAILY tablet 08/30/18 [Rx] Trolamine Salicylate/Aloe Vera [Aspercreme 10%] 1 appl TP TID PRN tube 08/30/18 [Rx] Vitamin B Complex/Vit C/Vit E [Stresstab] 1 each PO DAILY tablet 08/30/18 [Rx] diazePAM [Valium] 10 mg PO BID 3 Days #6 tablet 08/30/18 [Rx] Allergies/Adverse Reactions: Allergy/AdvReac Type Severity Reaction Status Date / Time No Known Allergies Allergy Verified 09/29/15 07:55 Date of admission: 08/16/18 10:49 Primary care physician: Simran Kauffman Consults: 08/15/18 22:13 Consult to Critical Care Registered Nurse [CONS] Routine Reason for SW Consult: Discharge planning; patient education about medicare/medicaid 08/16/18 12:53 Consult to Occupational Therapy [CONS] Routine Comment: Evaluate, develop and implement POC Reason for Consult: c diff diarrhea, deconditioning, poor self care Does patient have active BEDREST order?: No Is patient medically & hemodynamically stable?: Yes Consult to Physical Therapy [CONS] Routine Comment: Evaluate, develop and implement POC Reason for Consult: c diff diarrhea, deconditioning, poor self care Does patient have active BEDREST order?: No Is patient medically & hemodynamically stable?: Yes 08/27/18 16:59 Consult to Psychiatry [CONS] Routine Consulting Provider: Psychiatry Angelique Reason consult: Altered mental status Discharging clinician: Ayad Caicedo - Constitutional Vitals: Temp Pulse Resp BP Pulse Ox 99.0 F 84 16 132/69 97 08/30/18 16:18 08/30/18 16:18 08/30/18 16:18 08/30/18 16:18 08/30/18 16:18 Exam: . - Head Head exam: Present: atraumatic, normocephalic - Eye Eye exam: Present: PERRL, conjuntiva pink, sclera anicteric Pupils: Present: PERRL - Neck Neck exam general surgery: Present: supple, trachea midline. Absent: lymphadenopathy - Respiratory Respiratory exam: Present: CTAB. Absent: accessory muscle use, rales, rhonchi, wheezes - Cardiovascular Cardiovascular exam: Present: RRR, +S1, +S2. Absent: diastolic murmur, gallop, rubs, systolic murmur - GI/Abdominal GI/Abdominal exam: Present: normal bowel sounds, soft, no peritoneal signs. Absent: distended, tenderness - Extremities Exam Extremities exam: Present: warm, radial pulses palpable and symmetrical. Absent: calf tenderness, cyanotic, pedal edema - Neurological Exam Neurological exam: Present: CN II-XII intact, oriented X3, no focal deficits. Absent: pronater drift, facial droop, speech deficit - Skin Skin exam: Present: dry, intact - Patient Status Disposition: Transfer SNF Condition: Good Functional capacity at discharge: independent ambulation Overall status at discharge: patient is back to baseline - Discharge Instructions Follow Up With: Simran Kauffman [Primary Care Provider] - 08/24/18 4:10 pm Additional Instructions: SUDS assessment and AA. Formal Cognitive testing. - Diet and Activity Activity: increase activity as tolerated Diet: advance to your usual diet, regular diet
--- NOTE | 2018-08-30 16:58 | Physician Discharge Referral ---
ExtendedCare Referral Info Institutional Level of Care: Skilled - Diagnosis (1) C. difficile diarrhea Priority: Primary Status: Resolved (2) Encephalopathy Priority: Secondary Status: Acute (3) Elevated LFTs Priority: Secondary Status: Acute (4) Acute kidney injury Priority: Secondary Status: Resolved (5) History of alcohol abuse Priority: Secondary Status: Acute (6) Tobacco abuse Priority: Secondary Status: Acute (7) Electrolyte abnormality Priority: Secondary Status: Resolved (8) Metabolic acidosis Priority: Secondary Status: Resolved (9) Failure to thrive Priority: Secondary Status: Chronic (10) Cognitive impairment Priority: Secondary Status: Acute - Transfer Medications Prescriptions: diazePAM [Valium] 10 mg PO BID 3 Days #6 tablet OxyCODONE Immed Rel [Roxicodone 10 MG] 10 mg PO Q4H PRN 2 Days #12 tablet PRN Reason: Pain Home Medications: Rabeprazole Sodium [Aciphex] 20 mg PO DAILY 08/15/18 [History] Sertraline [Zoloft] 200 mg PO DAILY 08/16/18 [History] Folic Acid 1 mg PO DAILY tablet 08/30/18 [Rx] Magnesium Oxide [Mag-Ox] 400 mg PO BID tablet 08/30/18 [Rx] Melatonin 3 mg PO HS PRN tablet 08/30/18 [Rx] Nicotine Patch [Nicoderm] 14 mg TD DAILY patch.td24 08/30/18 [Rx] Ondansetron ODT [Zofran ODT] 4 mg SL Q6HR PRN tab.rapdis 08/30/18 [Rx] OxyCODONE Immed Rel [Roxicodone 10 MG] 10 mg PO Q4H PRN 2 Days #12 tablet 08/30/18 [Rx] Thiamine (B-1) [Vitamin B-1] 100 mg PO DAILY tablet 08/30/18 [Rx] Trolamine Salicylate/Aloe Vera [Aspercreme 10%] 1 appl TP TID PRN tube 08/30/18 [Rx] Vitamin B Complex/Vit C/Vit E [Stresstab] 1 each PO DAILY tablet 08/30/18 [Rx] diazePAM [Valium] 10 mg PO BID 3 Days #6 tablet 08/30/18 [Rx] Allergies/Adverse Reactions: Allergy/AdvReac Type Severity Reaction Status Date / Time No Known Allergies Allergy Verified 09/29/15 07:55 - Respiratory Orders Smoking Cessation: Smoking cessation has been advised. For more information, call the [place] Tobacco Quit Line at 8-289-ZDOJ-NOW. CERTIFICATION: I certify that the transfer of the above named patient to an Extended Care Facility is necessary for the continuing treatment of the diagnosis listed. The above information is true and accurate reflection of patient's current condition. Confidential - Redisclosure prohibited without a patient's written consent.
== END 2018-08-30 19:38 | DRG 248 ==
LOC: 2NNU 13:10 → EMEROOARM 13:10 → SUATTDRO 22:35 → 2NNU 22:59 → 3ANU 08-17 14:44
PROVIDERS: ADMIT Internal Medicine; ATTEND Internal Medicine

== ENCOUNTER 2018-10-07 11:34 | Observation (INO) ==
[2018-10-07] MEDS ORDERED: 0.9 % Sodium Chloride 1,000 ML IVC ONE (11:43)
--- NOTE | 2018-10-07 11:44 | Emergency Department Note ---
Disposition Clinical Impression: Bilateral numbness and tingling of arms and legs Disposition: Admitted As Inpatient General Adult [facility] - General Stated complaint: Numbness Time Seen by Provider: 10/07/18 11:38 - Related Data Home Medications Medication Instructions Recorded Confirmed Rabeprazole Sodium [Aciphex] 20 mg PO DAILY 08/15/18 08/15/18 Sertraline [Zoloft] 200 mg PO DAILY 08/16/18 08/16/18 Previous Rx's Medication Instructions Recorded Folic Acid 1 mg PO DAILY tablet 08/30/18 Magnesium Oxide [Mag-Ox] 400 mg PO BID tablet 08/30/18 Melatonin 3 mg PO HS PRN tablet 08/30/18 Nicotine Patch [Nicoderm] 14 mg TD DAILY patch.td24 08/30/18 Ondansetron ODT [Zofran ODT] 4 mg SL Q6HR PRN tab.rapdis 08/30/18 Thiamine (B-1) [Vitamin B-1] 100 mg PO DAILY tablet 08/30/18 Trolamine Salicylate/Aloe Vera 1 appl TP TID PRN tube 08/30/18 [Aspercreme 10%] Vitamin B Complex/Vit C/Vit E 1 each PO DAILY tablet 08/30/18 [Stresstab] Allergies Allergy/AdvReac Type Severity Reaction Status Date / Time No Known Allergies Allergy Verified 09/29/15 07:55 Past Medical History - Past Medical History Medical history: Reports: arthritis, cirrhosis, COPD, GERD, GI bleed, liver disease, osteoporosis, seizures, other Surgical history: Reports: breast surgery Psychiatric history: Reports: anxiety, depression, panic disorder, PTSD 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 - Social History Smoking Status: Current every day smoker Smokeless Tobacco Status: No (0.5 pack/ day) Alcohol use: Reports: recent (Reports no alcohol use in weeks; previously consumed a pint of whisky/day) Drug use: Reports: prescription drug abuse Course Vital Signs Temperature 99.1 F 10/07/18 11:40 Pulse Rate 80 10/07/18 11:40 Respiratory Rate 18 10/07/18 11:40 Blood Pressure 148/102 10/07/18 11:40 O2 Sat by Pulse Oximetry 100 10/07/18 11:40 Temperature 99.1 F 10/07/18 11:40 Pulse Rate 77 10/07/18 13:13 Respiratory Rate 18 10/07/18 13:13 Blood Pressure 148/101 10/07/18 13:13 O2 Sat by Pulse Oximetry 98 10/07/18 13:13 Oxygen Delivery Oxygen Delivery Room Air Medical Decision Making - Lab Data Result diagrams: 10/07/18 12:20 10/07/18 11:50 Lab Results 10/07/18 10/07/18 10/07/18 Range/Units 11:50 12:00 12:15 WBC (4.3-11.1) K/mcL RBC (3.82-4.97) M/mcL Hgb (11.5-15.4) g/dL Hct (35.3-44.9) % MCV (83.0-100.0) fL MCH (28.0-33.3) pg MCHC (31.6-35.5) g/dL RDW (11.5-14.5) % Plt Count (140-400) K/mcL MPV (9.4-12.4) fL Immature Gran % (0-4) % Seg Neutrophils % % Lymphocytes % % Monocytes % % Eosinophils % % Basophils % % Neutrophils # (1.6-8.9) K/mcL Lymphocytes # (0.6-4.6) K/mcL Monocytes # (0.0-1.3) K/mcL Eosinophils # (0.0-0.6) K/mcL Basophils # (0.0-0.2) K/mcL Sodium 138 (136-145) mEq/L Potassium 3.2 L (3.5-5.1) mEq/L Chloride 106 (98-107) mEq/L Carbon Dioxide 22 L (23-29) mEq/L BUN 10 (6-20) mg/dL Creatinine 0.48 L (0.60-1.20) mg/dL Est GFR ( Amer) > 60 (> 60) Est GFR (Non-Af Amer) > 60 (> 60) BUN/Creatinine Ratio 21 (6-26) Glucose 129 H (70-105) mg/dL Calculated Osmolality 287 (280-300) Calcium 9.1 (8.6-10.3) mg/dL Total Bilirubin 1.2 H (0.3-1.0) mg/dL AST 25 (13-39) Units/L ALT 12 (7-52) Units/L Alkaline Phosphatase 119 H (34-104) Units/L Troponin I < 0.03 (< 0.04) ng/mL Serum Total Protein 6.8 (6.4-8.9) g/dL Albumin 4.2 (3.5-5.7) g/dL Globulin 2.6 (2.4-3.5) g/dL Albumin/Globulin Ratio 1.6 (1.1-2.2) Ur Specimen Adequacy See below A Urine Color Dark Yellow (Yellow) Urine Clarity Clear (Clear) Urine pH 6.0 (5.0-8.0) pH Units Ur Specific [place] 1.026 H (1.010-1.025) Urine Protein 30 H (Neg-Trace) mg/dL Urine Glucose (UA) Normal (Normal) mg/dL Urine Ketones Trace H (Negative) mg/dL Urine Blood Negative (Negative) Urine Nitrite Negative (Negative) Urine Bilirubin Small H (Negative) Urine Urobilinogen Normal (Normal) mg/dL Ur Leukocyte Esterase Small H (Negative) Urine Microscopic RBC 0-3 (0-3) per hpf Urine Microscopic WBC 5-15 H (0-3) per hpf Ur Squamous Epith Cells Many H (None-Few) per lpf Urine Bacteria Few (None-Few) per hpf Hyaline Casts None Seen (None-Few) per lpf Ur Culture Indicated? NO. A (NO) Ethyl Alcohol < 10 (Less than 10) mg/dL Specimen Rejected MCV Delta 15/18 Range/Units 12:20 WBC 5.3 (4.3-11.1) K/mcL RBC 3.82 (3.82-4.97) M/mcL Hgb 11.7 (11.5-15.4) g/dL Hct 36.1 (35.3-44.9) % MCV 94.5 D (83.0-100.0) fL MCH 30.6 (28.0-33.3) pg MCHC 32.4 (31.6-35.5) g/dL RDW 13.4 (11.5-14.5) % Plt Count 122 L (140-400) K/mcL MPV 11.4 (9.4-12.4) fL Immature Gran % 0.2 (0-4) % Seg Neutrophils % 53.1 % Lymphocytes % 36.3 % Monocytes % 7.0 % Eosinophils % 2.8 % Basophils % 0.6 % Neutrophils # 2.8 (1.6-8.9) K/mcL Lymphocytes # 1.9 (0.6-4.6) K/mcL Monocytes # 0.4 (0.0-1.3) K/mcL Eosinophils # 0.2 (0.0-0.6) K/mcL Basophils # 0.0 (0.0-0.2) K/mcL Sodium (136-145) mEq/L Potassium (3.5-5.1) mEq/L Chloride (98-107) mEq/L Carbon Dioxide (23-29) mEq/L BUN (6-20) mg/dL Creatinine (0.60-1.20) mg/dL Est GFR ( Amer) (> 60) Est GFR (Non-Af Amer) (> 60) BUN/Creatinine Ratio (6-26) Glucose (70-105) mg/dL Calculated Osmolality (280-300) Calcium (8.6-10.3) mg/dL Total Bilirubin (0.3-1.0) mg/dL AST (13-39) Units/L ALT (7-52) Units/L Alkaline Phosphatase (34-104) Units/L Troponin I (< 0.04) ng/mL Serum Total Protein (6.4-8.9) g/dL Albumin (3.5-5.7) g/dL Globulin (2.4-3.5) g/dL Albumin/Globulin Ratio (1.1-2.2) Ur Specimen Adequacy Urine Color (Yellow) Urine Clarity (Clear) Urine pH (5.0-8.0) pH Units Ur Specific [place] (1.010-1.025) Urine Protein (Neg-Trace) mg/dL Urine Glucose (UA) (Normal) mg/dL Urine Ketones (Negative) mg/dL Urine Blood (Negative) Urine Nitrite (Negative) Urine Bilirubin (Negative) Urine Urobilinogen (Normal) mg/dL Ur Leukocyte Esterase (Negative) Urine Microscopic RBC (0-3) per hpf Urine Microscopic WBC (0-3) per hpf Ur Squamous Epith Cells (None-Few) per lpf Urine Bacteria (None-Few) per hpf Hyaline Casts (None-Few) per lpf Ur Culture Indicated? (NO) Ethyl Alcohol (Less than 10) mg/dL Specimen Rejected Attestation Statement - Attestation Attestation: I examined this patient and my medical decision-making was reviewed with the Resident Physician. I agree with the documented findings, disposition and austen atment plan as described except to the extent set forth below. Patient presents to the ED complaining of numbness in her hands and feet. Onset several weeks ago. Patient states that worsened 2 days ago. She states the numbness is now up to her knees. She denies injury. She states her last fall was a couple weeks ago. Denies back pain. Denies fever. On examination she is awake and alert sitting up in bed in no acute distress. Oriented. Moves all extremities. She complains of numbness subjectively in the knee down. She does have bilateral clonus. Plan. Basic labs and CT head. Patient admitted to medicine with neurology consult. Chest X-Ray 10/07/18 11:43 IMPRESSION: No acute cardiopulmonary process. D/ / Yousif Miller MD / Yousif Miller MD Interpreting Provider: Yousif Miller MD Head CT 10/07/18 12:27 IMPRESSION: No acute intracranial abnormality. D/ / Jaspreet Mccloud MD / Jaspreet Mccloud MD Interpreting Provider: Jaspreet Mccloud MD
[2018-10-07 12:20] LABS: Alanine Aminotransferase 12 Units/L (7-52); Albumin 4.2 g/dL (3.5-5.7); Albumin/Globulin Ratio 1.6 (1.1-2.2); Alkaline Phosphatase 119 Units/L (34-104); Aspartate Amino Transferase 25 Units/L (13-39); BUN/Creatinine Ratio 21 (6-26); Bilirubin,Total 1.2 mg/dL (0.3-1.0); Blood Urea Nitrogen 10 mg/dL (6-20); Calcium 9.1 mg/dL (8.6-10.3); Carbon Dioxide 22 mEq/L (23-29); Chloride 106 mEq/L (98-107); Globulin 2.6 g/dL (2.4-3.5); Glucose 129 mg/dL (70-105); Osmolality,Calculated 287 (280-300); Potassium 3.2 mEq/L (3.5-5.1); Sodium 138 mEq/L (136-145); Total Protein 6.8 g/dL (6.4-8.9); eGFR For Non-African Americans > 60 (> 60)
[2018-10-07 12:21] LABS: Troponin I < 0.03 ng/mL (< 0.04)
[2018-10-07 12:34] LABS: Basophils % 0.6 %; Eosinophils # 0.2 K/mcL (0.0-0.6); Eosinophils % 2.8 %; Hematocrit 36.1 % (35.3-44.9); Hemoglobin 11.7 g/dL (11.5-15.4); Immature Granulocytes % 0.2 % (0-4); Lymphocytes # 1.9 K/mcL (0.6-4.6); Lymphocytes % 36.3 %; Mean Corpuscular HGB Conc 32.4 g/dL (31.6-35.5); Mean Corpuscular Hemoglobin 30.6 pg (28.0-33.3); Mean Corpuscular Volume 94.5 fL (83.0-100.0); Mean Platelet Volume 11.4 fL (9.4-12.4); Monocytes # 0.4 K/mcL (0.0-1.3); Neutrophils # 2.8 K/mcL (1.6-8.9); Platelet Count 122 K/mcL (140-400); Red Blood Count 3.82 M/mcL (3.82-4.97); Red Cell Distribution Width 13.4 % (11.5-14.5); Segmented Neutrophils % 53.1 %
[2018-10-07 12:40] LABS: Bilirubin,Urine Small (Negative); Blood,Urine Negative (Negative); Color,Urine Dark Yellow (Yellow); Glucose,Urine (UA) Normal (Normal); Ketones,Urine Trace mg/dL (Negative); Leukocyte Esterase,Urine Small (Negative); Nitrite,Urine Negative (Negative); Protein,Urine 30 mg/dL (Neg-Trace); Specific Gravity,Urine 1.026 (1.010-1.025); Urobilinogen,Urine Normal (Normal)
[2018-10-07 12:44] LABS: Bacteria,Urine Few per hpf (None-Few); Hyaline Casts,Urine None Seen per lpf (None-Few); RBC,Urine 0-3 per hpf (0-3); Squamous Epithelial Cell,Urine Many per lpf (None-Few)
[2018-10-07] MEDS ORDERED: Potassium Chloride Elixir 20 MEQ/15 ML UDC PO ONE (12:48)
[2018-10-07 12:52] LABS: Clarity,Urine Clear (Clear)
--- NOTE | 2018-10-07 14:26 | Emergency Department Note ---
Disposition Clinical Impression: Unable to ambulate, Bilateral numbness and tingling of arms and legs, Weakness, Paresthesia Disposition: Admitted As Inpatient Time of Disposition: 16:35 General Adult HPI - General Chief complaint: ED Weakness Stated complaint: Numbness Time Seen by Provider: 10/07/18 11:38 Source: patient Mode of arrival: ambulatory Limitations: no limitations Nursing Notes Reviewed: Yes Vital Signs Reviewed: Yes - History of Present Illness HPI Narrative: 58-year-old female with history of alcoholism and diabetes presenting to the emergency department with chief complaint of paresthesias. Patient states she has been having paresthesias in her bilateral hands and bilateral feet for maisha roximately 4 months but over the past 3 days it has acutely been getting worse. Patient states over the past 3 days the pain has been getting so bad she can no longer ambulate at home. She states she lives alone at home. Was [facility] [place] [facility] approximately one month ago for treatment of C. difficile. At this time patient states the pain is so severe in her bilateral legs that she can no longer ambulate. Pain is worse in the left lower extremity than the right lower extremity. She has had this for more than 3 days. Patient denies any headache, dizziness, chest pain or shortness of breath. Pain Scale: 8 - Related Data Home Medications Medication Instructions Recorded Confirmed Rabeprazole Sodium [Aciphex] 20 mg PO DAILY 08/15/18 08/15/18 Sertraline [Zoloft] 200 mg PO DAILY 08/16/18 08/16/18 Previous Rx's Medication Instructions Recorded Folic Acid 1 mg PO DAILY tablet 08/30/18 Magnesium Oxide [Mag-Ox] 400 mg PO BID tablet 08/30/18 Melatonin 3 mg PO HS PRN tablet 08/30/18 Nicotine Patch [Nicoderm] 14 mg TD DAILY patch.td24 08/30/18 Ondansetron ODT [Zofran ODT] 4 mg SL Q6HR PRN tab.rapdis 08/30/18 Thiamine (B-1) [Vitamin B-1] 100 mg PO DAILY tablet 08/30/18 Trolamine Salicylate/Aloe Vera 1 appl TP TID PRN tube 08/30/18 [Aspercreme 10%] Vitamin B Complex/Vit C/Vit E 1 each PO DAILY tablet 08/30/18 [Stresstab] Allergies Allergy/AdvReac Type Severity Reaction Status Date / Time No Known Allergies Allergy Verified 09/29/15 07:55 All systems ED: reviewed and negative except as stated. Constitutional: Reports: weakness. Denies: fever, chills Eyes: Reports: as per HPI ENT ED: Reports: as per HPI Cardiovascular: Denies: chest pain, palpitations, dyspnea on exertion Respiratory: Denies: cough, dyspnea, wheezes Gastrointestinal: Denies: abdominal pain, nausea, vomiting Genitourinary: Reports: as per HPI Musculoskeletal: Reports: as per HPI Integumentary: Reports: as per HPI Neurological: Reports: weakness, paresthesias Psychiatric: Reports: as per HPI Endocrine: Reports: as per HPI Hematological/Lymphatic: Reports: as per HPI Allergic/Immunologic: Reports: as per HPI Past Medical History - Past Medical History Attestation: Yes The following information was validated with the patient. 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 Absent: scleral icterus, conjunctival injection - ENT ENT exam: normal exam, mucous membranes moist - Neck Neck exam: Present: normal inspection, full ROM. Absent: tenderness, meningismus - Chest Chest inspection: Present: normal inspection, symmetric chest wall rise. Absent: tenderness, rash - Respiratory Respiratory exam: Present: normal lung sounds bilaterally. Absent: respiratory distress, wheezes - Cardiovascular Cardiovascular exam: Present: regular rate, normal rhythm, normal heart sounds - Abdominal Exam Abdominal exam: Present: soft, Non-Tender. Absent: distention, guarding, rebound - Extremities Exam Extremities exam: Present: other (Decreased muscle strength in the left lower extremity versus right lower extremity. Left lower extremity muscle strength 4 out of 5 compared to right 5 out of 5. Paresthesias with decreased sensation in the bilateral lower extremities from the knee down in the bilateral upper extremities from mid forearm down to fingertips. Distal pulses 2+ in all 4 extremities. Clonus noted in the bilateral feet. Decreased bilateral lower extremity reflexes) - Neurological Exam Neurological exam: Present: alert, oriented X3 - Psychiatric Psychiatric exam: Present: normal affect, normal mood - Skin Skin exam: Present: warm, intact Course Course Narrative: 58-year-old female presenting for paresthesias and weakness. In the room patient is alert and oriented 3 and hemodynamically stable. Physical exam is concerning for clonus in the bilateral feet and decreased sensation along with decreased reflexes in the bilateral lower extremities. Otherwise physical exam is benign. At this time will perform basic laboratory analysis and a CT of the head. Disposition most likely admission for further evaluation but pending evaluation. Patient agrees with this plan. - Reevaluation(s) Reevaluation #1: Patient's laboratory analysis shows mild hypokalemia. We will provide the patient with 40 mEq of oral supplementation at this time. CT of the head within normal limits. At this time due to patient's symptoms we will plan to admit the patient for further evaluation. I spoke with the hospitalist senior microsoft consultant Dr. Sexton who agrees to accept the patient at this time. He would like us to consult neurology for further recommendations for imaging. I spoke with the neurologist senior [employer] consultant Dr. Crowe who would like the patient to have an MRI of the brain along with the entire spinal cord. This message was relayed to the hospitalist team. At this time patient remains alert and oriented 3 and hemodynamically stable. Patient agrees with this plan. Vital Signs Temperature 99.1 F 10/07/18 11:40 Pulse Rate 80 10/07/18 11:40 Respiratory Rate 18 10/07/18 11:40 Blood Pressure 148/102 10/07/18 11:40 O2 Sat by Pulse Oximetry 100 10/07/18 11:40 Temperature 99.1 F 10/07/18 11:40 Pulse Rate 77 10/07/18 13:13 Respiratory Rate 18 10/07/18 13:13 Blood Pressure 148/101 10/07/18 13:13 O2 Sat by Pulse Oximetry 98 10/07/18 13:13 Oxygen Delivery Oxygen Delivery Room Air Medical Decision Making - Lab Data Result diagrams: 10/07/18 12:20 10/07/18 11:50 Lab Results 10/07/18 10/07/18 10/07/18 Range/Units 11:50 12:00 12:15 WBC (4.3-11.1) K/mcL RBC (3.82-4.97) M/mcL Hgb (11.5-15.4) g/dL Hct (35.3-44.9) % MCV (83.0-100.0) fL MCH (28.0-33.3) pg MCHC (31.6-35.5) g/dL RDW (11.5-14.5) % Plt Count (140-400) K/mcL MPV (9.4-12.4) fL Immature Gran % (0-4) % Seg Neutrophils % % Lymphocytes % % Monocytes % % Eosinophils % % Basophils % % Neutrophils # (1.6-8.9) K/mcL Lymphocytes # (0.6-4.6) K/mcL Monocytes # (0.0-1.3) K/mcL Eosinophils # (0.0-0.6) K/mcL Basophils # (0.0-0.2) K/mcL Sodium 138 (136-145) mEq/L Potassium 3.2 L (3.5-5.1) mEq/L Chloride 106 (98-107) mEq/L Carbon Dioxide 22 L (23-29) mEq/L BUN 10 (6-20) mg/dL Creatinine 0.48 L (0.60-1.20) mg/dL Est GFR ( Amer) > 60 (> 60) Est GFR (Non-Af Amer) > 60 (> 60) BUN/Creatinine Ratio 21 (6-26) Glucose 129 H (70-105) mg/dL Calculated Osmolality 287 (280-300) Calcium 9.1 (8.6-10.3) mg/dL Total Bilirubin 1.2 H (0.3-1.0) mg/dL AST 25 (13-39) Units/L ALT 12 (7-52) Units/L Alkaline Phosphatase 119 H (34-104) Units/L Troponin I < 0.03 (< 0.04) ng/mL Serum Total Protein 6.8 (6.4-8.9) g/dL Albumin 4.2 (3.5-5.7) g/dL Globulin 2.6 (2.4-3.5) g/dL Albumin/Globulin Ratio 1.6 (1.1-2.2) Ur Specimen Adequacy See below A Urine Color Dark Yellow (Yellow) Urine Clarity Clear (Clear) Urine pH 6.0 (5.0-8.0) pH Units Ur Specific [place] 1.026 H (1.010-1.025) Urine Protein 30 H (Neg-Trace) mg/dL Urine Glucose (UA) Normal (Normal) mg/dL Urine Ketones Trace H (Negative) mg/dL Urine Blood Negative (Negative) Urine Nitrite Negative (Negative) Urine Bilirubin Small H (Negative) Urine Urobilinogen Normal (Normal) mg/dL Ur Leukocyte Esterase Small H (Negative) Urine Microscopic RBC 0-3 (0-3) per hpf Urine Microscopic WBC 5-15 H (0-3) per hpf Ur Squamous Epith Cells Many H (None-Few) per lpf Urine Bacteria Few (None-Few) per hpf Hyaline Casts None Seen (None-Few) per lpf Ur Culture Indicated? NO. A (NO) Ethyl Alcohol < 10 (Less than 10) mg/dL Specimen Rejected MCV Delta /15/18 Range/Units 12:20 WBC 5.3 (4.3-11.1) K/mcL RBC 3.82 (3.82-4.97) M/mcL Hgb 11.7 (11.5-15.4) g/dL Hct 36.1 (35.3-44.9) % MCV 94.5 D (83.0-100.0) fL MCH 30.6 (28.0-33.3) pg MCHC 32.4 (31.6-35.5) g/dL RDW 13.4 (11.5-14.5) % Plt Count 122 L (140-400) K/mcL MPV 11.4 (9.4-12.4) fL Immature Gran % 0.2 (0-4) % Seg Neutrophils % 53.1 % Lymphocytes % 36.3 % Monocytes % 7.0 % Eosinophils % 2.8 % Basophils % 0.6 % Neutrophils # 2.8 (1.6-8.9) K/mcL Lymphocytes # 1.9 (0.6-4.6) K/mcL Monocytes # 0.4 (0.0-1.3) K/mcL Eosinophils # 0.2 (0.0-0.6) K/mcL Basophils # 0.0 (0.0-0.2) K/mcL Sodium (136-145) mEq/L Potassium (3.5-5.1) mEq/L Chloride (98-107) mEq/L Carbon Dioxide (23-29) mEq/L BUN (6-20) mg/dL Creatinine (0.60-1.20) mg/dL Est GFR ( Amer) (> 60) Est GFR (Non-Af Amer) (> 60) BUN/Creatinine Ratio (6-26) Glucose (70-105) mg/dL Calculated Osmolality (280-300) Calcium (8.6-10.3) mg/dL Total Bilirubin (0.3-1.0) mg/dL AST (13-39) Units/L ALT (7-52) Units/L Alkaline Phosphatase (34-104) Units/L Troponin I (< 0.04) ng/mL Serum Total Protein (6.4-8.9) g/dL Albumin (3.5-5.7) g/dL Globulin (2.4-3.5) g/dL Albumin/Globulin Ratio (1.1-2.2) Ur Specimen Adequacy Urine Color (Yellow) Urine Clarity (Clear) Urine pH (5.0-8.0) pH Units Ur Specific [place] (1.010-1.025) Urine Protein (Neg-Trace) mg/dL Urine Glucose (UA) (Normal) mg/dL Urine Ketones (Negative) mg/dL Urine Blood (Negative) Urine Nitrite (Negative) Urine Bilirubin (Negative) Urine Urobilinogen (Normal) mg/dL Ur Leukocyte Esterase (Negative) Urine Microscopic RBC (0-3) per hpf Urine Microscopic WBC (0-3) per hpf Ur Squamous Epith Cells (None-Few) per lpf Urine Bacteria (None-Few) per hpf Hyaline Casts (None-Few) per lpf Ur Culture Indicated? (NO) Ethyl Alcohol (Less than 10) mg/dL Specimen Rejected - EKG Data EKG #1 EKG attestation: Yes I reviewed and interpreted this EKG. EKG results narrative: Sinus rhythm. PVCs. 73 beats per minute. QRS 86, QTC 445, WA 145. No sign of acute ST segment elevation or ischemia.
[2018-10-07 15:16] LABS: Ethanol < 10 mg/dL (Less than 10)
--- NOTE | 2018-10-07 15:21 | Internal Med History&Physical ---
<Ashley Amor - Last Filed: 10/07/18 16:35> Date of Encounter: 10/07/18 Internal Medicine - H&P: HPI History of present illness: Ms. Fischer is a 58 year old female Internal Medicine - H&P: Meds Rabeprazole Sodium [Aciphex] 20 mg PO DAILY 08/15/18 [History] Sertraline [Zoloft] 200 mg PO DAILY 08/16/18 [History] Folic Acid 1 mg PO DAILY tablet 08/30/18 [Rx] Magnesium Oxide [Mag-Ox] 400 mg PO BID tablet 08/30/18 [Rx] Melatonin 3 mg PO HS PRN tablet 08/30/18 [Rx] Nicotine Patch [Nicoderm] 14 mg TD DAILY patch.td24 08/30/18 [Rx] Ondansetron ODT [Zofran ODT] 4 mg SL Q6HR PRN tab.rapdis 08/30/18 [Rx] Thiamine (B-1) [Vitamin B-1] 100 mg PO DAILY tablet 08/30/18 [Rx] Trolamine Salicylate/Aloe Vera [Aspercreme 10%] 1 appl TP TID PRN tube 08/30/18 [Rx] Vitamin B Complex/Vit C/Vit E [Stresstab] 1 each PO DAILY tablet 08/30/18 [Rx] Allergy/AdvReac Type Severity Reaction Status Date / Time No Known Allergies Allergy Verified 09/29/15 07:55 All Systems PM: A 10-system review of systems was performed and is negative for pertinent findings except as documented above in the HPI. - Constitutional Vitals: Temp Pulse Resp BP Pulse Ox 99.1 F 77 18 148/101 98 10/07/18 11:40 10/07/18 13:13 10/07/18 13:13 10/07/18 13:13 10/07/18 13:13 Internal Med - H&P Results - Labs CBC & Chem 7: 10/07/18 12:20 10/07/18 11:50 Labs: Short CBC 10/07/18 Range/Units 12:20 WBC 5.3 (4.3-11.1) K/mcL Hgb 11.7 (11.5-15.4) g/dL Hct 36.1 (35.3-44.9) % Plt Count 122 L (140-400) K/mcL Neutrophils # 2.8 (1.6-8.9) K/mcL BMP 10/07/18 11:50 Sodium 138 Potassium 3.2 L Chloride 106 Carbon Dioxide 22 L BUN 10 Creatinine 0.48 L Glucose 129 H Calcium 9.1 Cardiac Enzymes 10/07/18 Range/Units 11:50 Troponin I < 0.03 (< 0.04) ng/mL Liver Function 10/07/18 Range/Units 11:50 Total Bilirubin 1.2 H (0.3-1.0) mg/dL AST 25 (13-39) Units/L ALT 12 (7-52) Units/L Alkaline Phosphatase 119 H (34-104) Units/L Albumin 4.2 (3.5-5.7) g/dL Urine 10/07/18 Range/Units 12:00 Urine Color Dark Yellow (Yellow) Urine Clarity Clear (Clear) Urine pH 6.0 (5.0-8.0) pH Units Ur Specific [place] 1.026 H (1.010-1.025) Urine Protein 30 H (Neg-Trace) mg/dL Urine Glucose (UA) Normal (Normal) mg/dL - Impressions ITS Impressions Chest X-Ray 10/07/18 11:43 IMPRESSION: No acute cardiopulmonary process. D/ / Yousif Miller MD / Yousif Miller MD Interpreting Provider: Yousif Miller MD Head CT 10/07/18 12:27 IMPRESSION: No acute intracranial abnormality. D/ / Jaspreet Mccloud MD / Jaspreet Mccloud MD Interpreting Provider: Jaspreet Mccloud MD - Assessment and plan (1) Alcoholism Current Visit: No Status: Chronic (2) Cirrhosis Current Visit: No Status: Acute Qualifiers: Hepatic cirrhosis type: alcoholic cirrhosis Ascites presence: with ascites Qualified Code(s): K70.31 - Alcoholic cirrhosis of liver with ascites (3) Tobacco abuse Current Visit: No Status: Acute (4) Chronic back pain Current Visit: No Status: Acute Qualifiers: Back pain location: back pain in unspecified location Back pain laterality: unspecified Qualified Code(s): M54.9 - Dorsalgia, unspecified; G89.29 - Other chronic pain (5) Anxiety Current Visit: No Status: Acute (6) Paresthesias Current Visit: Yes Status: Acute (7) Weakness Current Visit: Yes Status: Acute (8) DVT prophylaxis Current Visit: Yes Status: Acute - Time Spent With Patient Total time spent is greater than 50% in coordination of care (as documented) at patient's floor/unit and/or counseling patient: - Attending Attestation to serve as attestation pending resident completion of H&P. Pt seen and examined CAse has discussed with ED team, pharm to confirm home meds, Neurology Dr Mendez regarding stat imaging recs and MRI team to update to urgency of imaging. I also have personally discussed treatment plan with pt Daughter Althea whom is her POA (with pt permission). I examined this patient and my medical decision-making was reviewed with the Resident Physician Dr Nelson. I agree with the documented findings, disposition and treatment plan as described except to the extent set forth below. Ms Fischer has a pmhx copd, gib, chronci thrombocytopenia, etoh dependence, liver disease not further specified, chronically elevated alk phos, t bili,anxiety, depression. She was last admitted end of Jul 2018- Aug 30, 2018 for cdiff. A hospitalization in which she saw psychiatry for anxiety and depression and etoh dependence. She was dc to snf and discharged from snf approx 09/12/18. Her in 06/2018 and since that time she has had difficulty with self care, med compliance, and worsened etoh use with falls. Awake, in bed. She is a relatively poor historian regarding describing symptoms and giving timeline. Of what I can gather hand and foot numbness/tingling/burning started 4 months ago when her and slowly progressed, up to the wrist and slowly up the legs, but yesterday it became worsened to the point of worsened tingling and burning, like her arm was completely numb to the albows bilaterally and same to the knees bilaterally. She seems generally weak and admits to dropping things and trouble walking bc she "can't feel". No bowel or bladder incontinence, cannto discern if she has saddle paraesthesias, no trouble breathing, sob, trouble swallowing. She admits to shots of etoh but not daily. It is hard to get further details from her as she perseverates on her agatha eopiate and benzo being ordered for chronic back pain and headaches and anxiety. Nursing in ED notes she has great difficulty ambulating even with assist. She requires assistance to sit as well. ED course included routine labs and CT head which had no acute findings On request for admit Admitter requested stat neuro consult Dr Mendez would like stat MRI head, cspine, tspine and lspine (not ordered by ED team, ordered now on admit stat and communicated to MRI team. Her daughter is an RN and her POA and I called her to obtain more info. She re established a relationship with her mother in june. At that time she ambulated with walker and had heavy etoh use and poor nutiritonal status. She had cdiff 4 weeks ago. A hospitalization complicated by delirium and resulted in snf placement. She dc from [facility] 3 weeks ago and at that time independently ambulated. She believes she has started drinkgin again and is not eating as never has food at the house depsite borrowing money for food. Pt had not ever informed her of numbness/tingling in hands feet until this morning when she called her and said she couldn't walk. This is highly concerning as it notes a more rapid onset of symptoms than pt reports. Concern for serious, even like threatening such as G-B, neurologic condition was discussed with pt and her daughter. They understand need for emergent testing and are aware case has been discussed with neuro by both ED team and our team. Our team has confirmed imaging recommended by Dr Mendez and imaging is pending at this time. I personally discussed with MRI team and there is another patient ahead of this imaging but they will preform her testing after that given severity of presentation. gen- alert, awake,appears stated age, malnourished appearing eyes- pupils equal round, reactive to light, eom intact, no nystagmus noted cv- reg rate and rhythm, normal s1,s2, no murmurs appreciated, no le edema lungs- ctabl, no wheezing, rhonchi or crackles, normal resp effort on ra, barrel chested abd- soft, non tender, non distended, + bs neuro- AAOx3, CN grossly intact, tone appears normal and equal throughout, no fasciculation noted, muscles appear hypotrophic diffusely, she has difficulty understanding sensory exam and just keeps noting that to light touch it "feng and is irritating" equally throughout the entire BL LE. 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, BL LE strength throughout ext is 3/5, cannot e licit patellar reflex on either leg, LUE reflexes normal , difficulty eliciting RUE reflexes BL weakness and paresthesias - acuteness is hard to know at this time as she is a poor historian with etoh dependence and giveing a more acute on chronic picture with family noting a more acute onset- stat mri brain, c-t-l spine have been ordered as above, Dr Mendez updated to consult being changed to stat, further interventions pending results, given she had c diff 4 weeks ago she would be hig h risk G-B and pt and family are aware, in emergency she is full code with daughter Althea being POA -differential is wide at this point but need to to rule out spinal cord compression, cauda equina, spinal/cerebral infarct, G-B, MS; then also nutritional deficiencies -neuro checks, fall precautions, hold opiate/benzo home meds at this time so as to not have any possible med effects to interfer with resp monitoring at this time chronic thrombocytopenia, t bili and alk phos elevation- all stable/better than baseline at this time hypokalmeia 3.2 and repleted PO etoh dependence- check etoh, uds levels, ciwa, banana bag chronic pain- see Dr Kauffman at [facility]- pharm confirmed takes oxycodone 10 mg [id number] anxiety/depression - hasn't taken zoloft in a month, restart but at 50 mg daily, pharm confirmed home valium 10 mg BID-held awaiting imaging and neuro eval but then pending results resume to avoid withdrawal/seizure further diagnoses and treatment as noted by resident further plan pending neuro eval Althea Jamal [phone] cell and [phone] home <Laurita Nelson - Last Filed: 10/07/18 17:11> Date of Encounter: 10/07/18 Time of Encounter: 15:44 Internal Medicine - H&P: HPI Chief complaint: weakness Admitted From: Emergency Dept Plans for Post Hospital Care: Transfer Shelter Facility History of present illness: Ms. Fischer is a 58 year old female with past medical history of alcoholism, cirrhosis, seizure disorder, anxiety, COPD, GRD, tobacco use. Patient arrived to the emergency department today which chief complaint of numbness/tingling. She states that this started about 4 months ago. She states that started in the tips of her fingers and toes initially. Now, she states that the numbness has extended up to her knees in her elbows. She states that her symptoms started around the time when her was diagnosed with cancer and subsequently 14 days later back in June. She denies any recent injuries. She also admits to dizziness when trying to get up from a seated position. She states that she has been having significant difficulties with walking because she cannot feel the bottom of her feet. She does admit to headaches. She denies an y vision changes or incontinence. She admits to nausea without vomiting. She denies diarrhea, fever, chills, chest pain, shortness of breath. She reports significant weakness in all 4 extremities. Overall, she has decreased appetite. She is also noted that she has been dropping things lately such as dropping bowls in the kitchen. She reports having falls about once per month since July. She denies hitting her head and denies loss of consciousness when default occurred. She does have extensive history of drinking alcohol. She currently states that she takes 3-4 shots of whiskey a few times per week. Of note, patient was recently hospitalized from 08/15-08/30. At that time, her had recently and she was overall not doing well and not taking care of herself at home. She had also stopped taking medications as well. She was treated for C.Diff, DKA and then discharged to SNF for rehab. Past Med Surg Social Fam HX - Past Medical History Medical history: arthritis, cirrhosis, COPD, GERD, GI bleed, liver disease, osteoporosis, seizures, other Psychiatric history: anxiety, depression, panic disorder, PTSD - Past Surgical History Surgical History: breast surgery Additional surgical history: left breast lumpectomy, Right knee replaced - Social History Smoking Status: Current every day smoker Smokeless Tobacco Status: No (0.5 pack/ day) Alcohol use: recent (Reports no alcohol use in weeks; previously consumed a pint of whisky/day) Drug use: prescription drug abuse - Family History Maternal Grandfather Hx Family Endocrine Disorder: Yes (Diabetes) Mother Adopted: No Living Status: Still Living Hx Family Cardiac Disorders: Yes (NV, CAD with stent placement, CVA) All Systems PM: A 10-system review of systems was performed and is negative for pertinent findings except as documented above in the HPI. - Constitutional Constitutional: as per HPI - EENT Eyes: as per HPI Ears: as per HPI Nose, mouth and throat: as per HPI - Breasts Breasts: as per HPI - Cardiovascular Cardiovascular ROS IM: as per HPI - Respiratory Respiratory: as per HPI - Gastrointestinal Gastrointestinal: as per HPI - Genitourinary Genitourinary: as per HPI Menstruation: as per HPI - Musculoskeletal Musculoskeletal ROS IM: as per HPI - Integumentary Integumentary IM: as per HPI - Neurological Neurological ROS: as per HPI - Psychiatric Psychiatric: as per HPI - Endocrine Endocrine IM: as per HPI - Hematologic/Lymphatic Hematologic/Lymphatic: as per HPI - Allergic/Immunologic Allergic/Immunologic: as per HPI - Constitutional Vitals: Temp Pulse Resp BP Pulse Ox 99.1 F 77 18 148/101 98 10/07/18 11:40 10/07/18 13:13 10/07/18 13:13 10/07/18 13:13 10/07/18 13:13 Exam: Gen.:alert and oriented x3, appears to be in no acute distress. CV: RRR, no murmurs, rubs gallops. Lungs: diminished breath sounds in right lower lobe. All other lung rodriguez clear to auscultation. Abdomen: soft, non distended, non tender. diminished bowel sounds. extremities: no cyanosis, edema, asterexis noted. Neuro: Significantly diminished muscle strength in all extremities. muscle strength 3/5. Difficult to obtain reflexes in lower extremities. Cranial nerves 2-12 intact. cerebellar testing abnormal. patient had difficulty following commands. Patient had extreme difficulty walking and had poor balance. She needed assistance of another person to stand up, and even then could only take a few steps. Internal Med - H&P Results - Labs CBC & Chem 7: 10/07/18 12:20 10/07/18 11:50 Labs: Short CBC 10/07/18 Range/Units 12:20 WBC 5.3 (4.3-11.1) K/mcL Hgb 11.7 (11.5-15.4) g/dL Hct 36.1 (35.3-44.9) % Plt Count 122 L (140-400) K/mcL Neutrophils # 2.8 (1.6-8.9) K/mcL BMP 10/07/18 11:50 Sodium 138 Potassium 3.2 L Chloride 106 Carbon Dioxide 22 L BUN 10 Creatinine 0.48 L Glucose 129 H Calcium 9.1 Cardiac Enzymes 10/07/18 Range/Units 11:50 Troponin I < 0.03 (< 0.04) ng/mL Liver Function 10/07/18 Range/Units 11:50 Total Bilirubin 1.2 H (0.3-1.0) mg/dL AST 25 (13-39) Units/L ALT 12 (7-52) Units/L Alkaline Phosphatase 119 H (34-104) Units/L Albumin 4.2 (3.5-5.7) g/dL Urine 10/07/18 Range/Units 12:00 Urine Color Dark Yellow (Yellow) Urine Clarity Clear (Clear) Urine pH 6.0 (5.0-8.0) pH Units Ur Specific [place] 1.026 H (1.010-1.025) Urine Protein 30 H (Neg-Trace) mg/dL Urine Glucose (UA) Normal (Normal) mg/dL - Impressions ITS Impressions Chest X-Ray 10/07/18 11:43 IMPRESSION: No acute cardiopulmonary process. D/ / Yousif Miller MD / Yousif Miller MD Interpreting Provider: Yousif Miller MD Head CT 10/07/18 12:27 IMPRESSION: No acute intracranial abnormality. D/ / Jaspreet Mccloud MD / Jaspreet Mccloud MD Interpreting Provider: Jaspreet Mccloud MD - Assessment and plan (1) Paresthesias Current Visit: Yes Status: Acute Assessment and plan: 58-year-old female arrive to the hospital today with complaints of numbness/tingling/weakness in all extremities. Neuro exam concerning for significant weakness, difficulty with gait, diminished reflexes. Head CT unremarkable. Etiology unclear at this time. Differentials include: possible transverse myelitis, GBS, stroke, vitamin deficiency, malignancy, MS. of note, patient does have significant history of non compliance with medications and history of alcohol abuse. she is overall debilitated and does not take care of herself at home. Plan: appreciate neuro recs. discussed case with neuro MRI of head, cervical, thoracic, and lumbar spine pending. MVIs for alcoholism. check TSH, B12, folate. [facility] protocol. alcohol level, UDS pending consult to director of social services. q4H neuro checks. consult to respiratory therapy. need continued measure of forced vital capacity q4H throughout the night- concern for Guillan Brock. (2) Weakness Current Visit: Yes Status: Acute Assessment and plan: plan as above (3) Alcoholism Current Visit: No Status: Chronic Assessment and plan: Significant history of alcohol abuse. Plan: [facility] protocol IV multivitamins (4) Anxiety Current Visit: No Status: Acute Assessment and plan: History of anxiety. takes benzodiazepines at home, along with opiates. Plan: give PRN atival for alcohol withdraw. will hold administration of any more benzodiazepines to avoid respiratory suppression until neuro workup is complete. (5) Cirrhosis Current Visit: No Status: Acute Assessment and plan: no asterexis on exam. continue to monitor. Qualifiers: Hepatic cirrhosis type: alcoholic cirrhosis Ascites presence: with ascites Qualified Code(s): K70.31 - Alcoholic cirrhosis of liver with ascites (6) Chronic back pain Current Visit: No Status: Acute Assessment and plan: hold opiates for now until neuro workup complete. Qualifiers: Back pain location: back pain in unspecified location Back pain laterality: unspecified Qualified Code(s): M54.9 - Dorsalgia, unspecified; G89.29 - Other chronic pain (7) Tobacco abuse Current Visit: No Status: Acute Assessment and plan: smoking cessation advised (8) DVT prophylaxis Current Visit: Yes Status: Acute Assessment and plan: EPCDs - Time Spent With Patient Total time spent is greater than 50% in coordination of care (as documented) at patient's floor/unit and/or counseling patient:
[2018-10-07] MEDS ORDERED: Naloxone 0.4 MG/ML INJ IVP PRN (15:31)
[2018-10-07] MEDS ORDERED: Thiamine (B-1) 100 MG, Folic Acid 1 MG, MVI, adult with vitamin K 10 ML in 0.9 % Sodi... IVPB SCH (15:38)
[2018-10-07] MEDS ORDERED: *HR* LORazepam 2 MG/ML VIAL IVP PRN ×2 (15:40)
[2018-10-07] MEDS ORDERED: Ondansetron ODT 4 MG TAB.RAPDIS SL PRN (15:42)
[2018-10-07 16:31] LABS: INR 1.1; Prothrombin Time 11.9 Seconds (9.4-12.1)
--- NOTE | 2018-10-07 16:34 | Event Note ---
Date of Encounter: 10/07/18 Time of Encounter: 15:00 to serve as attestation pending resident completion of H&P. Pt seen and examined CAse has discussed with ED team, pharm to confirm home meds, Neurology Dr Mendez regarding stat imaging recs and MRI team to update to urgency of imaging. I also have personally discussed treatment plan with pt Daughter Althea whom is her POA (with pt permission). I examined this patient and my medical decision-making was reviewed with the Resident Physician Dr Nelson. I agree with the documented findings, disposition and treatment plan as described except to the extent set forth below. Ms Fischer has a pmhx copd, gib, chronci thrombocytopenia, etoh dependence, liver disease not further specified, chronically elevated alk phos, t bili,anxiety, depression. She was last admitted end of Jul 2018- Aug 30, 2018 for cdiff. A hospitalization in which she saw psychiatry for anxiety and depression and etoh dependence. She was dc to snf and discharged from snf approx 09/12/18. Her in 06/2018 and since that time she has had difficulty with self care, med compliance, and worsened etoh use with falls. Awake, in bed. She is a relatively poor historian regarding describing symptoms and giving timeline. Of what I can gather hand and foot numbness/tin gling/burning started 4 months ago when her and slowly progressed, up to the wrist and slowly up the legs, but yesterday it became worsened to the point of worsened tingling and burning, like her arm was completely numb to the albows bilaterally and same to the knees bilaterally. She seems generally weak and admits to dropping things and trouble walking bc she "can't feel". No bowel or bladder incontinence, cannto discern if she has saddle paraesthesias, no trouble breathing, sob, trouble swallowing. She admits to shots of etoh but not daily. It is hard to get further details from her as she perseverates on her agatha eopiate and benzo being ordered for chronic back pain and headaches and anxiety. Nursing in ED notes she has great difficulty ambulating even with assist. She requires assistance to sit as well. ED course included routine labs and CT head which had no acute findings On request for admit Admitter requested stat neuro consult Dr Mendez would like stat MRI head, cspine, tspine and lspine (not ordered by ED team, ordered now on admit stat and communicated to MRI team. Her daughter is an RN and her POA and I called her to obtain more info. She re established a relationship with her mother in june. At that time she ambulated with walker and had heavy etoh use and poor nutiritonal status. She had cdiff 4 weeks ago. A hospitalization complicated by delirium and resulted in snf placement. She dc from [place] approx 3 weeks ago and at that time independently ambulated. She believes she has started drinkgin again and is not eating as never has food at the house depsite borrowing money for food. Pt had not ever informed her of numbness/tingling in hands feet until this morning when she called her and said she couldn't walk. This is highly concer ruth as it notes a more rapid onset of symptoms than pt reports. Concern for serious, even like threatening such as G-B, neurologic condition was discussed with pt and her daughter. They understand need for emergent testing and are aware case has been discussed with neuro by both ED team and our team. Our team has confirmed imaging recommended by Dr Mendez and imaging is pending at this time. I personally discussed with MRI team and there is another patient ahead of this imaging but they will preform her testing after that given severity of presentation. gen- alert, awake,appears stated age, malnourished appearing eyes- pupils equal round, reactive to light, eom intact, no nystagmus noted cv- reg rate and rhythm, normal s1,s2, no murmurs appreciated, no le edema lungs- ctabl, no wheezing, rhonchi or crackles, normal resp effort on ra, barrel chested abd- soft, non tender, non distended, + bs neuro- AAOx3, CN grossly intact, tone appears normal and equal throughout, no fasciculation noted, muscles appear hypotrophic diffusely, she has difficulty understanding sensory exam and just keeps noting that to light touch it "feng and is irritating" equally throughout the entire BL LE. 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, BL LE strength throughout ext is 3/5, cannot elicit patellar reflex on either leg, LUE reflexes normal , difficulty eliciting RUE reflexes BL weakness and paresthesias - acuteness is hard to know at this time as she is a poor historian with etoh dependence and giveing a more acute on chronic picture with family noting a more acute onset- stat mri brain, c-t-l spine have been ordered as above, Dr Mendez updated to consult being changed to stat, further interventions pending results, given she had c diff 4 weeks ago she would be high risk G-B and pt and family are aware, in emergency she is full code with daughter Althea being POA -differential is wide at this point but need to to rule out spinal cord compression, cauda equina, spinal/cerebral infarct, G-B, MS; then also nutritional deficiencies -neuro checks, fall precautions, hold opiate/benzo home meds at this time so as to not have any possible med effects to interfer with resp monitoring at this time chronic thrombocytopenia, t bili and alk phos elevation- all stable/better than baseline at this time hypokalmeia 3.2 and repleted PO etoh dependence- check etoh, uds levels, ciwa, banana bag chronic pain- see Dr Kauffman at [place]- pharm confirmed takes oxycodone 10 mg [id number] anxiety/depression - hasn't taken zoloft in a month, restart but at 50 mg daily, pharm confirmed home valium 10 mg BID-held awaiting imaging and neuro eval but then pending results resume to avoid withdrawal/seizure further diagnoses and treatment as noted by resident further plan pending neuro eval Althea Jamal [phone] cell and [phone] home
[2018-10-07 16:48] LABS: Creatine Kinase 32 Units/L (30-223)
--- NOTE | 2018-10-07 17:19 | Event Note ---
Date of Encounter: 10/07/18 Time of Encounter: 17:[address] Crowe to change to stat consult and information obtained from my exam of patient and further history from both she and her daughter. MRIs remains pending. He will do LP in morning pending MRI results to rule out G-B. To error on side of caution, re have arranged q4 hr vital capacity checks with RT and she has q4 hr neuro checks as well as tele and cont pulse oximetry. MRI results will be followed up by dayteam/nightteam pending time of result. There is low threshold for higher level of care/transfer to outside hospital with neuro icu if she has progressive symptoms or MRI results requiring emergent neuro sug eval. This is a difficult case to discern the acuity of given she is a poor historian and family cannot confirm chronicity of these findings.
[2018-10-07] MEDS: Thiamine (B-1) 100 MG, Folic Acid 1 MG, MVI, adult with vitamin K 10 ML in 0.9 % Sodi... IVPB SCH (18:48)
--- NOTE | 2018-10-07 20:10 | Event Note ---
Date of Encounter: 10/07/18 Time of Encounter: 20:[address] Crowe pets salesperson for neurology and familiar with this case to update on Brain and CTL MRI results. No new recommendations at this time, planning to see patient in a.m. Patient with no new complaints at this time, vitals stable.
[2018-10-07] MEDS: *HR* LORazepam 2 MG/ML VIAL IVP PRN (20:11)
[2018-10-07 20:15] LABS: Amphetamine Screen,Urine Negative ng/mL (Cutoff=1000); Barbiturate Screen,Urine Negative ng/mL (Cutoff=200); Benzodiazepines Screen,Urine Positive ng/mL (Cutoff=200); Cannabinoid Screen,Urine Negative ng/mL (Cutoff = 50); Cocaine Screen,Urine Negative ng/mL (Cutoff= 300); Opiate Screen,Urine Negative ng/mL (Cutoff=300); Phencyclidine Screen,Urine Negative ng/mL (Cutoff=25)
[2018-10-07] MEDS: Nicotine 7 MG PATCH.TD24 TD SCH (20:49)
[2018-10-07] MEDS: Acetaminophen 325 MG TABLET PO PRN (22:31)
[2018-10-08] MEDS: Melatonin 3 MG TABLET PO PRN ×2 (00:55→21:28)
[2018-10-08] MEDS: *HR* LORazepam 2 MG/ML VIAL IVP PRN ×2 (02:10→09:21)
[2018-10-08] MEDS: Acetaminophen 325 MG TABLET PO PRN ×2 (05:50→21:28)
[2018-10-08 05:52] LABS: Basophils % 0.5 %; Eosinophils # 0.2 K/mcL (0.0-0.6); Eosinophils % 2.7 %; Hematocrit 33.5 % (35.3-44.9); Hemoglobin 10.9 g/dL (11.5-15.4); Immature Granulocytes % 0.2 % (0-4); Lymphocytes # 2.5 K/mcL (0.6-4.6); Lymphocytes % 45.1 %; Mean Corpuscular HGB Conc 32.5 g/dL (31.6-35.5); Mean Corpuscular Hemoglobin 30.4 pg (28.0-33.3); Mean Corpuscular Volume 93.6 fL (83.0-100.0); Monocytes # 0.3 K/mcL (0.0-1.3); Monocytes % 6.1 %; Neutrophils # 2.5 K/mcL (1.6-8.9); Platelet Count 111 K/mcL (140-400); Red Blood Count 3.58 M/mcL (3.82-4.97); Red Cell Distribution Width 13.3 % (11.5-14.5); Segmented Neutrophils % 45.4 %
[2018-10-08 05:59] LABS: Prothrombin Time 11.8 Seconds (9.4-12.1)
[2018-10-08 06:12] LABS: BUN/Creatinine Ratio 16 (6-26); Blood Urea Nitrogen 8 mg/dL (6-20); Carbon Dioxide 20 mEq/L (23-29); Chloride 108 mEq/L (98-107); Glucose 117 mg/dL (70-105); Magnesium 1.5 mg/dL (1.6-2.6); Osmolality,Calculated 281 (280-300); Phosphorous 3.5 mg/dL (2.7-4.5); Potassium 3.9 mEq/L (3.5-5.1); Sodium 136 mEq/L (136-145); eGFR For Non-African Americans > 60 (> 60)
[2018-10-08 06:25] LABS: Thyroid Stimulating Hormone 2.978 mcIU/mL (0.340-5.600)
[2018-10-08 06:35] LABS: Vitamin B12 482 pg/mL (250-1100)
[2018-10-08 06:44] LABS: Folate > 22.3 ng/mL (3.0-16.0)
[2018-10-08 08:02] LABS: Estimated Average Glucose 100 mg/dl; Hemoglobin A1C 5.1 %
[2018-10-08] MEDS: Nicotine 7 MG PATCH.TD24 TD SCH (09:08)
--- NOTE | 2018-10-08 09:57 | Neurology - Consult Note ---
Date of Encounter: 10/08/18 Time of Encounter: 09:46 Assessment and Plan (1) Bilateral numbness and tingling of arms and legs Current Visit: Yes Status: Acute Symptoms started acute or subacutely within the last few days, with emotional disturbances due to still in grieve period due to loss of her , with rapidly resolution overnight. No spinal cord lesions or brain abnormalities. Symptoms difficult to explain by a primary neurological disorder. The presence of areflexia is likely a chronic finding, presence of finger numbness argue against diagnosis of Guillain Arion syndrome and the presence of C.Diff infection is over two months ago so it would be less relevant. overall speaking, it seemed that the symptoms are related to her excessive grieve and less likely a type of periodic paralysis (aggravated by low pattasium, would not be able to explain her prominent sensory complaints though). Since her symptoms essentially resolved i would recommend no further testing. She may benefit from psychiatric consultation for her grieve but i would defer this to medical team. Will sign off at this time, Please call if any questions. I reviewed the MRI o bran, C, T and L spines and she does have degenerative disc disease and findings of neuroforaminal narrowing but she is now asymptomatic and it pain is an issue then she can be evaluated with ortho as an outpatient. I spent 50 minutes with the patient of which more than 50% were spent with the patient face to face and the rest for coordination of care. All questions are answered. The prognosis of her neurological condition is fair. History of Present Illness Chief complaint: diffuse paresthesia and numbness HPI: Ms. Fischer is a 58 year old female with PMH significant for alcoholism, hepatic encphalopathy, thrombocytopenia, CKD who presented to ER with rather acute onset of paresthesia involving her hands and fingers as well as weakness in her arms. This occurred 1-2 days prior to the admission. Neurology was consulted for the paresthesia initially and the finding of 'clonus' however per medical team upon arrival to the floor the patient's daughter reported that the paresthesia and weakness are rather new. It was reported that the patient was a poor historian and that she was weakness diffusely in her arms and legs and she has no reflexes and that she could not feel her fingers. But vitals are stable. We suggested MRI of brain and whole spine which showed no spinal cord pathology. Patient states that she lost her who from lung cancer in June/2018 and she is still in grieve period. she states that in last few days she was still thinking about him and upcoming holidays and she started feeling numbness and tingling to her finger tips and then it progressed rapidly and she could not even girp her hands bilaterally. No fever no headaches and no speech difficulty. So she went to ER. Then last night she 'was thinking and thinking' and slowly she start feeling better. At the time of this interview, apparently her symptoms essentially resolved. she is neurological intact. It was initially concerned that the patient may have Guillain Arion due to her recent history of admission to the hospital due to C.Diff infection during 07/2018. She was later found not to have reflexes. There was also report of significant pain causing her not to be able to move. But upon examination it was no where mentioned by the patient. Past Med Surg Social Fam HX - Past Medical History Medical history: arthritis, cirrhosis, COPD, GERD, GI bleed, liver disease, osteoporosis, seizures Psychiatric history: anxiety, depression, panic disorder, PTSD - Past Surgical History Surgical History: breast surgery Additional surgical history: left breast lumpectomy, Right knee replaced - Social History Smoking Status: Current every day smoker Smokeless Tobacco Status: No (0.5 pack/ day) Alcohol use: recent Drug use: prescription drug abuse - Family History Maternal Grandfather Hx Family Endocrine Disorder: Yes (Diabetes) Mother Adopted: No Living Status: Still Living Hx Family Cardiac Disorders: Yes (HI) Medications and Allergies Rabeprazole Sodium [Aciphex] 20 mg PO DAILY 08/15/18 [History] Sertraline [Zoloft] 200 mg PO DAILY 08/16/18 [History] Folic Acid 1 mg PO DAILY tablet 08/30/18 [Rx] Magnesium Oxide [Mag-Ox] 400 mg PO BID tablet 08/30/18 [Rx] Melatonin 3 mg PO HS PRN tablet 08/30/18 [Rx] Nicotine Patch [Nicoderm] 14 mg TD DAILY patch.td24 08/30/18 [Rx] Ondansetron ODT [Zofran ODT] 4 mg SL Q6HR PRN tab.rapdis 08/30/18 [Rx] Thiamine (B-1) [Vitamin B-1] 100 mg PO DAILY tablet 08/30/18 [Rx] Trolamine Salicylate/Aloe Vera [Aspercreme 10%] 1 appl TP TID PRN tube 08/30/18 [Rx] Vitamin B Complex/Vit C/Vit E [Stresstab] 1 each PO DAILY tablet 08/30/18 [Rx] Allergy/AdvReac Type Severity Reaction Status Date / Time No Known Allergies Allergy Verified 09/29/15 07:55 All Systems: The remainder of the systems were reviewed and are negative Physical Examination - Vital Signs Vital Signs: Initial Vital Signs Temp Pulse Resp BP Pulse Ox 99.1 F 80 18 148/102 100 10/07/18 11:40 10/07/18 11:40 10/07/18 11:40 10/07/18 11:40 10/07/18 11:40 - Constitutional General appearance: comfortable - Neurologic Detailed motor examination: full strength in all major muscle groups Motor examination - right side: 5/5: deltoids, biceps, triceps, wrist flexion, wrist extension, workers' compensation magistrate, hip flexors, tibialis Anterior, quadriceps, toe extension (EHL), plantarflexion Motor examination - left side: 5/5: deltoids, biceps, triceps, wrist flexion, wrist extension, hip flexors, workers' compensation magistrate, quadriceps, tibialis Anterior, toe extension (EHL), plantarflexion Detailed sensory examination: intact Posture: other (None) Reflex and gait examination: intact Reflexes: Biceps: 1+, Triceps: 1+, Brachioradialis: 1+, Patella: 1+, Achilles: 1+ Mental Status Examination: awake, alert, oriented to person, oriented to place, oriented to time, follows commands appropriately, answers questions appropriately, no agnosia, no aphasia, no aproxia Cranial nerve examination: PERRL, EOMI, visual rodriguez intact, corneal reflexes brisk symmetrically, sensory to face intact, mastication intact, no facial asymmetry is present, no dysarthria, hearing is intact symmetrically, soft palate elevates bilaterally upon phonation, gag reflex intact, flexes SCM and trapezius muscles symmetrically with full power, tongue protrudes midline, no atrophy or facial fasiculations present Cerebellar examination: no dysmetria, performs finger to nose and heel to reyna symmetrically without ataxia, no gait ataxia, no truncal ataxia, no difficulty with rapid alternating movements Results - Laboratory Findings CBC and BMP: 10/08/18 04:00 10/08/18 04:00 Abnormal lab findings: Abnormal lab results RBC 3.58 M/mcL (3.82-4.97) L 10/08/18 04:00 Hgb 10.9 g/dL (11.5-15.4) L 10/08/18 04:00 Hct 33.5 % (35.3-44.9) L 10/08/18 04:00 Plt Count 111 K/mcL (140-400) L 10/08/18 04:00 Chloride 108 mEq/L (98-107) H 10/08/18 04:00 Carbon Dioxide 20 mEq/L (23-29) L 10/08/18 04:00 Creatinine 0.50 mg/dL (0.60-1.20) L 10/08/18 04:00 Glucose 117 mg/dL (70-105) H 10/08/18 04:00 Magnesium 1.5 mg/dL (1.6-2.6) L 10/08/18 04:00 Total Bilirubin 1.2 mg/dL (0.3-1.0) H 10/07/18 11:50 Alkaline Phosphatase 119 Units/L (34-104) H 10/07/18 11:50 Folate > 22.3 ng/mL (3.0-16.0) H 10/08/18 04:00 Ur Specimen Adequacy See below A 10/07/18 12:00 Ur Specific [place] 1.026 (1.010-1.025) H 10/07/18 12:00 Urine Protein 30 mg/dL (Neg-Trace) H 10/07/18 12:00 Urine Ketones Trace mg/dL (Negative) H 10/07/18 12:00 Urine Bilirubin Small (Negative) H 10/07/18 12:00 Ur Leukocyte Esterase Small (Negative) H 10/07/18 12:00 Urine Microscopic WBC 5-15 per hpf (0-3) H 10/07/18 12:00 Ur Squamous Epith Cells Many per lpf (None-Few) H 10/07/18 12:00 Ur Culture Indicated? NO. (NO) A 10/07/18 12:00 U Benzodiazepines Scrn Positive ng/mL (Pfiffp=231) H 10/07/18 19:50 - Diagnostic Findings Additional findings: MRI OF THE BRAIN WITHOUT CONTRAST 10/07/2018 6:13 pm TECHNIQUE: Multiplanar multisequence MRI of the brain was performed without the administration of intravenous contrast. COMPARISON: CT head earlier today. HISTORY: ORDERING SYSTEM PROVIDED HISTORY: symmetric paresthesias of UE and LE with weakness Initial encounter. Acute illness. 4.5 months of numbness in both arms and legs with weakness. Fall in July. FINDINGS: INTRACRANIAL STRUCTURES/VENTRICLES: Parenchymal volume is commensurate with age. Mild chronic white matter microvascular ischemic changes are noted. There is no evidence of acute infarct or mass. No mass effect or midline shift. No evidence of an acute intracranial hemorrhage. The ventricles and sulci are normal in size and configuration. The sellar/suprasellar regions appear unremarkable. The normal signal voids within the major intracranial vessels appear maintained. ORBITS: The visualized portion of the orbits demonstrate no acute abnormality. SINUSES: The visualized paranasal sinuses and mastoid air cells are well aerated. BONES/SOFT TISSUES: The bone marrow signal intensity appears normal. The soft tissues demonstrate no acute abnormality. MR/MR head/brain wo con IMPRESSION: 1. No acute intracranial abnormality. 2. Mild chronic white matter microvascular ischemic changes. D/ / Haresh Oliver / Haresh Oliver Interpreting Provider: Haresh Oliver OF THE CERVICAL SPINE WITHOUT CONTRAST 10/07/2018 6:14 pm TECHNIQUE: Multiplanar multisequence MRI of the cervical spine was performed without the administration of intravenous contrast. COMPARISON: None. HISTORY: ORDERING SYSTEM PROVIDED HISTORY: symmetric paresthesias of UE and LE with weakness Initial encounter. Acute illness. Numbness in both arms and legs with leg weakness for 4.5 months. FINDINGS: BONES/ALIGNMENT: Mild motion artifact. Vertebral body heights maintained. Normal alignment. Marrow signal within normal limits for age. SPINAL CORD: The visualized spinal cord has normal signal and morphology. No evidence of mass or abnormal fluid collection within the spinal canal. SOFT TISSUES: 1.9 cm T2 hyperintense left thyroid nodule. No acute soft tissue abnormality. C2-C3: Disc height and signal maintained. No neural foraminal narrowing or spinal canal stenosis. C3-C4: Disc height and signal maintained. Mild bilateral neural foraminal narrowing secondary uncovertebral hypertrophy. No spinal canal stenosis. C4-C5: Disc height and signal maintained. Mild left neural foraminal narrowing secondary to uncovertebral and facet hypertrophy. No right neural foraminal narrowing. No spinal canal stenosis. C5-C6: Mild disc height loss. No disc signal abnormality. No left neural foraminal narrowing. Moderate right neural foraminal narrowing secondary to uncovertebral hypertrophy. No spinal canal stenosis. C6-C7: Disc height and signal maintained. No left neural foraminal narrowing. Mild right neural foraminal narrowing secondary to facet hypertrophy. No spinal canal stenosis. C7-T1: Disc height and signal maintained. No neural foraminal narrowing or spinal canal stenosis. MR/MR cervical spine wo con IMPRESSION: 1. Motion limited evaluation. 2. No acute abnormality of the cervical spine. 3. Mild multilevel neural foraminal narrowing as detailed above. 4. No spinal canal stenosis. 5. 1.9 cm left thyroid nodule. Nonemergent follow-up thyroid ultrasound is recommended if not previously performed per guidelines below. RECOMMENDATIONS: 1.9 cm incidental thyroid nodule Recommend thyroid US. Reference: J Am Rg Radiol. 2015 Nov;12(2): 143-50 D/ / Haresh Oliver / Haresh Oliver Interpreting Provider: Haresh Oliver OF THE LUMBAR SPINE WITHOUT CONTRAST, 10/07/2018 6:13 pm TECHNIQUE: Multiplanar multisequence MRI of the lumbar spine was performed without the administration of intravenous contrast. COMPARISON: CT abdomen pelvis 08/15/2018 and 09/29/2015 HISTORY: ORDERING SYSTEM PROVIDED HISTORY: symmetric paresthesias of UE and LE with weakness Initial encounter. Acute illness. 4.5 months of bilateral upper and lower extremity weakness. FINDINGS: BONES/ALIGNMENT: Mild motion artifact. Vertebral body heights maintained. Mild L3 superior endplate concavity with subjacent marrow edema. This concavity is new since 09/29/2015 but appears unchanged since 08/15/2018. Chronic Schmorl's nodes noted at L1-and L4-5. Reactive degenerative edema noted about the L3-4 disc and left L3-4 facet joint. SPINAL CORD: The conus terminates normally at the upper L1 level. The visualized spinal cord has normal signal and morphology. No evidence of mass or abnormal fluid collection within the spinal canal. SOFT TISSUES: Paraspinal soft tissues are unremarkable. L1-L2: Mild disc height loss and desiccation. No left neural foraminal narrowing. Severe right neural foraminal narrowing secondary to disc bulge. No spinal canal stenosis. L2-L3: Disc height and signal maintained. No neural foraminal narrowing or significant spinal canal stenosis. L3-L4: Mild disc height loss and desiccation. Mild left neural foraminal narrowing secondary to disc bulge and facet hypertrophy. No right neural foraminal narrowing or significant spinal canal stenosis. L4-L5: Moderate disc height loss with intradiscal vacuum phenomenon. Mild left neural foraminal narrowing secondary to disc bulge and facet hypertrophy. No right neural foraminal narrowing or spinal canal stenosis. L5-S1: Moderate disc height loss with intradiscal vacuum phenomenon. No left neural foraminal narrowing. Severe right neural foraminal narrowing secondary to disc bulge and facet hypertrophy. No spinal canal stenosis. MR/MR lumbar spine wo con IMPRESSION: 1. Mild L3 superior endplate concavity with subjacent marrow edema is new since 09/29/2015 but unchanged from 08/15/2018 and suggests a subacute endplate fracture. 2. [id number] multilevel degenerative changes. 3. No significant spinal canal stenosis. 4. Multilevel neural foraminal narrowing as detailed above and greatest involving the right L1 and right L5 neural foramina where it is severe. D/ / Haresh Oliver / Haresh Oliver Interpreting Provider: Haresh Oliver OF THE THORACIC SPINE WITHOUT CONTRAST 10/07/2018 6:13 pm TECHNIQUE: Multiplanar multisequence MRI of the thoracic spine was performed without the administration of intravenous contrast. COMPARISON: None. HISTORY: ORDERING SYSTEM PROVIDED HISTORY: symmetric paresthesias of UE and LE with weakness Initial encounter. Acute illness. Numbness in both arms and legs with weakness for 4.5 months. FINDINGS: BONES/ALIGNMENT: Vertebral heights are maintained. Alignment is normal. There are scattered chronic Schmorl's nodes in the midthoracic spine. Minimal multilevel demonstrable changes are present. No fracture or suspect osseous lesion is evident. SPINAL CORD: The visualized spinal cord has normal signal and morphology. No evidence of mass or abnormal fluid collection within the spinal canal. SOFT TISSUES: Paraspinal soft tissues are unremarkable. DEGENERATIVE CHANGES: Mild spinal canal stenosis at T3-4, T4-5, T5-6, T6-7, T7-8, T9-10, and T10-11 secondary to disc bulges. MR/MR thoracic spine wo con IMPRESSION: 1. No acute abnormality of the thoracic spine. 2. Mild multilevel degenerative disc disease with disc bulges causing mild spinal canal stenosis as above. D/ / Haresh Oliver / Haresh Oliver Interpreting Provider: Haresh Oliver Consult Discharge Plan - Plan Referrals: NONE,PCP [Primary Care Provider] -
--- NOTE | 2018-10-08 10:43 | Internal Med Progress Note ---
<Laurita Nelson - Last Filed: 10/08/18 12:12> Hospitalist Progress Note - Encounter Date of Encounter: 10/08/18 Time of Encounter: 10:42 - Subjective Interval History: 58F evaluated at bedside. She denies nausea, vomiting, diarrhea, fever, chills, chest pain, shortness of breath. She states she feels a lot better compared to yesterday. - Exam Vitals: Temp Pulse Resp BP Pulse Ox 98.0 F 90 18 119/83 98 10/08/18 07:30 10/08/18 09:28 10/08/18 09:28 10/08/18 09:28 10/08/18 07:30 Exam: Gen.:alert and oriented x3, appears to be in no acute distress. CV: RRR, no murmurs, rubs gallops. Lungs: diminished breath sounds in right lower lobe. All other lung rodriguez clear to auscultation. Abdomen: soft, non distended, non tender. diminished bowel sounds. extremities: no cyanosis, edema, asterexis noted. Neuro: Significantly diminished muscle strength in all extremities. muscle strength 3/5. Difficult to obtain reflexes in lower extremities. Cranial nerves 2-12 intact. cerebellar testing abnormal. patient had difficulty following commands. Patient had extreme difficulty walking and had poor balance. She needed assistance of another person to stand up, and even then could only take a few steps. - Assessment and Plan (1) Paresthesias Current Visit: Yes Status: Acute Assessment and Plan: 58-year-old female arrive to the hospital today with complaints of numbness/tingling/weakness in all extremities. Neuro exam concerning for significant weakness, difficulty with gait, diminished reflexes. Head CT unremarkable. of note, patient does have significant history of non compliance with medications and history of alcohol abuse. she is overall debilitated and does not take care of herself at home. MRI head, cervical, thoracic, lumbar spine reviewed: significant for some stenosis. neuro eval reviewed. folate, B12, TSH unremarkable. likely multifactorial symptoms secondary to psychiatric (depresson)/alcoholism. Plan: MVIs for alcoholism. [facility] protocol. consult to manager social. q4H neuro checks. consult to psychiatry pending. PT/OT eval for possible SNF. (2) Alcoholism Current Visit: No Status: Chronic Assessment and Plan: Significant history of alcohol abuse. Plan: CIWA protocol IV multivitamins (3) Cirrhosis Current Visit: No Status: Acute Assessment and Plan: no asterexis on exam. continue to monitor. (4) Tobacco abuse Current Visit: No Status: Acute Assessment and Plan: smoking cessation advised (5) Chronic back pain Current Visit: No Status: Acute Assessment and Plan: resume home opiates PRN. (6) Anxiety Current Visit: No Status: Acute Assessment and Plan: resume home valium PRN. dose verified with pharmacy. (7) Weakness Current Visit: Yes Status: Acute Assessment and Plan: plan as above (8) DVT prophylaxis Current Visit: Yes Status: Acute Assessment and Plan: EPCDs - Time Spent with Patient Total time spent is greater than 50% in coordination of care (as documented) at patient's floor/unit and/or counseling patient: Internal Medicine: Result - Labs CBC & Chem 7: 10/08/18 04:00 10/08/18 04:00 Labs: Short CBC 10/07/18 10/08/18 Range/Units 12:20 04:00 WBC 5.3 5.5 (4.3-11.1) K/mcL Hgb 11.7 10.9 L (11.5-15.4) g/dL Hct 36.1 33.5 L (35.3-44.9) % Plt Count 122 L 111 L (140-400) K/mcL Neutrophils # 2.8 2.5 (1.6-8.9) K/mcL BMP 10/07/18 10/08/18 11:50 04:00 Sodium 138 136 Potassium 3.2 L 3.9 Chloride 106 108 H Carbon Dioxide 22 L 20 L BUN 10 8 Creatinine 0.48 L 0.50 L Glucose 129 H 117 H Calcium 9.1 9.0 Cardiac Enzymes 10/07/18 Range/Units 11:50 Troponin I < 0.03 (< 0.04) ng/mL Liver Function 10/07/18 Range/Units 11:50 Total Bilirubin 1.2 H (0.3-1.0) mg/dL AST 25 (13-39) Units/L ALT 12 (7-52) Units/L Alkaline Phosphatase 119 H (34-104) Units/L Albumin 4.2 (3.5-5.7) g/dL Urine 10/07/18 Range/Units 12:00 Urine Color Dark Yellow (Yellow) Urine Clarity Clear (Clear) Urine pH 6.0 (5.0-8.0) pH Units Ur Specific [place] 1.026 H (1.010-1.025) Urine Protein 30 H (Neg-Trace) mg/dL Urine Glucose (UA) Normal (Normal) mg/dL - ABG Interpretation ABG results: PT/INR, D-dimer PT 11.8 Seconds (9.4-12.1) 10/08/18 04:00 - Impressions Impressions Chest X-Ray 10/07/18 11:43 IMPRESSION: No acute cardiopulmonary process. D/ / Yousif Miller MD / Yousif Miller MD Interpreting Provider: Yousif Miller MD Head CT 10/07/18 12:27 IMPRESSION: No acute intracranial abnormality. D/ / Jaspreet Mccloud MD / Jaspreet Mccloud MD Interpreting Provider: Jaspreet Mccloud MD Brain MRI 10/07/18 15:25 IMPRESSION: 1. No acute intracranial abnormality. 2. Mild chronic white matter microvascular ischemic changes. D/ / Haresh Oliver / Haresh Oliver Interpreting Provider: Haresh Oliver Cervical Spine MRI 10/07/18 15:25 IMPRESSION: 1. Motion limited evaluation. 2. No acute abnormality of the cervical spine. 3. Mild multilevel neural foraminal narrowing as detailed above. 4. No spinal canal stenosis. 5. 1.9 cm left thyroid nodule. Nonemergent follow-up thyroid ultrasound is recommended if not previously performed per guidelines below. RECOMMENDATIONS: 1.9 cm incidental thyroid nodule Recommend thyroid US. Reference: J Am Rg Radiol. 2015 Nov;12(2): 143-50 D/ / Haresh Oliver / Haresh Oliver Interpreting Provider: Haresh Oliver Lumbar Spine MRI 10/07/18 15:25 IMPRESSION: 1. Mild L3 superior endplate concavity with subjacent marrow edema is new since 09/29/2015 but unchanged from 08/15/2018 and suggests a subacute endplate fracture. 2. Uyqz-fo-xucbkoyn multilevel degenerative changes. 3. No significant spinal canal stenosis. 4. Multilevel neural foraminal narrowing as detailed above and greatest involving the right L1 and right L5 neural foramina where it is severe. D/ / Haresh Oliver / Haresh Oliver Interpreting Provider: Haresh Oliver Thoracic Spine MRI 10/07/18 15:25 IMPRESSION: 1. No acute abnormality of the thoracic spine. 2. Mild multilevel degenerative disc disease with disc bulges causing mild spinal canal stenosis as above. D/ / Haresh Oliver / Haresh Oliver Interpreting Provider: Haresh Oliver Consult Discharge Plan - Plan Referrals: NONE,PCP [Primary Care Provider] - <Ashley Amor - Last Filed: 10/08/18 14:56> Hospitalist Progress Note - Encounter Date of Encounter: 10/08/18 - Exam Vitals: Temp Pulse Resp BP Pulse Ox 98.0 F 82 18 152/99 99 10/08/18 07:30 10/08/18 11:36 10/08/18 11:36 10/08/18 11:36 10/08/18 11:36 - Assessment and Plan (1) Alcoholism Current Visit: No Status: Chronic (2) Cirrhosis Current Visit: No Status: Acute (3) Tobacco abuse Current Visit: No Status: Acute (4) Chronic back pain Current Visit: No Status: Acute (5) Anxiety Current Visit: No Status: Acute (6) Paresthesias Current Visit: Yes Status: Acute (7) Weakness Current Visit: Yes Status: Acute (8) DVT prophylaxis Current Visit: Yes Status: Acute - Time Spent with Patient Total time spent is greater than 50% in coordination of care (as documented) at patient's floor/unit and/or counseling patient: Internal Medicine: Result - Labs CBC & Chem 7: 10/08/18 04:00 10/08/18 04:00 Labs: Short CBC 10/08/18 Range/Units 04:00 WBC 5.5 (4.3-11.1) K/mcL Hgb 10.9 L (11.5-15.4) g/dL Hct 33.5 L (35.3-44.9) % Plt Count 111 L (140-400) K/mcL Neutrophils # 2.5 (1.6-8.9) K/mcL BMP 10/07/18 10/08/18 11:50 04:00 Sodium 138 136 Potassium 3.2 L 3.9 Chloride 106 108 H Carbon Dioxide 22 L 20 L BUN 10 8 Creatinine 0.48 L 0.50 L Glucose 129 H 117 H Calcium 9.1 9.0 Cardiac Enzymes 10/07/18 Range/Units 11:50 Troponin I < 0.03 (< 0.04) ng/mL Liver Function 10/07/18 Range/Units 11:50 Total Bilirubin 1.2 H (0.3-1.0) mg/dL AST 25 (13-39) Units/L ALT 12 (7-52) Units/L Alkaline Phosphatase 119 H (34-104) Units/L Albumin 4.2 (3.5-5.7) g/dL - ABG Interpretation ABG results: PT/INR, D-dimer PT 11.8 Seconds (9.4-12.1) 10/08/18 04:00 - Impressions Impressions Brain MRI 10/07/18 15:25 IMPRESSION: 1. No acute intracranial abnormality. 2. Mild chronic white matter microvascular ischemic changes. D/ / Haresh Oliver / Haresh Oliver Interpreting Provider: Haresh Oliver Cervical Spine MRI 10/07/18 15:25 IMPRESSION: 1. Motion limited evaluation. 2. No acute abnormality of the cervical spine. 3. Mild multilevel neural foraminal narrowing as detailed above. 4. No spinal canal stenosis. 5. 1.9 cm left thyroid nodule. Nonemergent follow-up thyroid ultrasound is recommended if not previously performed per guidelines below. RECOMMENDATIONS: 1.9 cm incidental thyroid nodule Recommend thyroid US. Reference: J Am Rg Radiol. 2015 Nov;12(2): 143-50 D/ / Haresh Oliver / Haresh Oliver Interpreting Provider: Haresh Oliver Lumbar Spine MRI 10/07/18 15:25 IMPRESSION: 1. Mild L3 superior endplate concavity with subjacent marrow edema is new since 09/29/2015 but unchanged from 08/15/2018 and suggests a subacute endplate fracture. 2. Bzqn-ii-tduuirwy multilevel degenerative changes. 3. No significant spinal canal stenosis. 4. Multilevel neural foraminal narrowing as detailed above and greatest involving the right L1 and right L5 neural foramina where it is severe. D/ / Haresh Oliver / Haresh Oliver Interpreting Provider: Haresh Oliver Thoracic Spine MRI 10/07/18 15:25 IMPRESSION: 1. No acute abnormality of the thoracic spine. 2. Mild multilevel degenerative disc disease with disc bulges causing mild spinal canal stenosis as above. D/ / Haresh Oliver / Haresh Oliver Interpreting Provider: Haresh Oliver - Attending Attestation I examined this patient and my medical decision-making was reviewed with the Resident Physician Dr Nelson. I agree with the documented findings, disposition and treatment plan as described except to the extent set forth below. Ms Fischer is being observed for neuroapthy and generalzied weakness awake, pleasant and noting that symptoms dramatically improved overnight. she feels like she is not as weak and numbness/tingling in hands and feet has improved. we feels this is related to her being deeply saddened and overwhelmed by her husbands detah. she denies etoh use yesterday and deneis over use of benzos/opiates toher than how they are prescribed and does not mix them with etoh. gen- alert, awake,appears stated age, malnourished appearing eyes- pupils equal round cv- reg rate and rhythm, normal s1,s2, no murmurs appreciated, no le edema lungs- ctabl, no wheezing, rhonchi or crackles, normal resp effort on ra neuro- AAOx3, CN grossly intact, strength is now 5/5 in all ext and sensation to lt touch diminished but equal in bl hand/arm to elbow and feet to mid reyna and equal BL weakness UE and LE, resolved without intervention BL UE and LE paresthesias -after extensive work up without significant cause identified, and with neuro eval and rapid resolution of symptoms this appears to be more related to excessive grief and less likely a primary neurologic disorder including peridoic paralysis from hypokalemia (pt ahd sensory deficits as well and tsh wnl) -will have pscyh eval pt -pt/ot for dispo recs MRI of brain, C, T and L spines - degenerative disc disease and findings of neuroforaminal narrowing but asymptomatic and if develops pain she can be evaluated with ortho as an outpatient. Hypomagnesemia- iv repletion today chronic thrombocytopenia, t bili and alk phos elevation- all stable/better than baseline at this time hypokalmeia - resolved etoh dependence, not in withdrawal- levels, ciwa, banana bag chronic pain- see Dr Kauffman at [facility]- pharm confirmed takes oxycodone 10 mg q4hr, may resume prn anxiety/depression - hasn't taken zoloft in a month, restart at 50 mg daily, pharm confirmed home valium 10 mg BID-resume, psych eval further diagnoses and treatment as noted by resident POA- daughter- Althea Berry [phone] cell and [phone] home <Laurita Nelson - Last Filed: 10/08/18 12:12> (3) Cirrhosis Qualifiers: Hepatic cirrhosis type: alcoholic cirrhosis Ascites presence: with ascites Qualified Code(s): K70.31 - Alcoholic cirrhosis of liver with ascites (5) Chronic back pain Qualifiers: Back pain location: back pain in unspecified location Back pain laterality: unspecified Qualified Code(s): M54.9 - Dorsalgia, unspecified; G89.29 - Other chronic pain <Ashley Amor - Last Filed: 10/08/18 14:56> (2) Cirrhosis Qualifiers: Hepatic cirrhosis type: alcoholic cirrhosis Ascites presence: with ascites Qualified Code(s): K70.31 - Alcoholic cirrhosis of liver with ascites (4) Chronic back pain Qualifiers: Back pain location: back pain in unspecified location Back pain laterality: unspecified Qualified Code(s): M54.9 - Dorsalgia, unspecified; G89.29 - Other chronic pain
[2018-10-08] MEDS ORDERED: *HR* OxyCODONE ER (12 HR) 10 MG TABLET PO PRN (11:54)
[2018-10-08] MEDS: diazePAM 10 MG TABLET PO PRN (13:59)
--- NOTE | 2018-10-08 16:15 | Consult Note ---
Date of Encounter: 10/08/18 Time of Encounter: 15:15 Assessment & Recommendation (1) Depression Current visit: No Status: Acute Qualifiers: Depression Type: unspecified Qualified Code(s): F32.9 - Major depressive disorder, single episode, unspecified (2) Alcohol dependence, uncomplicated Current visit: Yes Status: Acute (3) Bereavement Current visit: Yes Status: Acute History of Present Illness Patient: known to practice within the last 3 years Requesting Physician: Juanito Sexton MD Reason for consult: I am not having the numbness and tingling like I was. My last drink was.. History of present illness: Ms. Fischer is a 58 year old female Chief complaint I am not having the numbness and tingling like before. History of present illness the patient was previously seen by our service. The time there was concern about the patient's level of cognition and the possibility of dementia. Today the patient has completed a neurologic evaluation and while there is no evidence of significant nerve impingement or central nervous system pathology the patient did have a head CT and MRI that showed atrophic changes in white matter changes greater than would be expected for age. This is combined with the fact that the patient was drinking up until . The patient's use of alcohol began 10 years ago and the patient reported d rinking hard liquor and that this caused some impairment. In the past the patient was on Zoloft and more recently she was started on Zoloft as an antidepressant. The patient cooperated with the exam and overall showed improvement. I was not able to talk to the patient's daughter who may have additional history. I talked to the patient about depression she did not think that was a significant problem she did recognize that she had trouble bereavement as her was diagnosed in June and in June from small cell carcinoma. CC: Juanito Sexton MD Past Med Surg Social Fam HX - Past Medical History Medical history: arthritis, cirrhosis, COPD, GERD, GI bleed, liver disease, osteoporosis, seizures - Past Psychiatric History Psychiatric history: Reports: depression, other Family psychiatric history: Unknown Family History of Suicide: Unknown - Past Surgical History Surgical History: breast surgery - Social History Smoking Status: Current every day smoker Smokeless Tobacco Status: No (0.5 pack/ day) Alcohol use: recent Drug use: prescription drug abuse Occupational status: disabled Current living situation: Home - Independent Activity Level: Independent ambulation Recent Out of Country Travel Within the Last 8 Weeks: No Exposure or Possible Exposure to Illness During Travel: No - Family History Maternal Grandfather Hx Family Endocrine Disorder: Yes (Diabetes) Mother Adopted: No Living Status: Still Living Hx Family Cardiac Disorders: Yes (MD) Medications & Allergies Rabeprazole Sodium [Aciphex] 20 mg PO DAILY 08/15/18 [History] Sertraline [Zoloft] 200 mg PO DAILY 08/16/18 [History] Folic Acid 1 mg PO DAILY tablet 08/30/18 [Rx] Magnesium Oxide [Mag-Ox] 400 mg PO BID tablet 08/30/18 [Rx] Melatonin 3 mg PO HS PRN tablet 08/30/18 [Rx] Nicotine Patch [Nicoderm] 14 mg TD DAILY patch.td24 08/30/18 [Rx] Ondansetron ODT [Zofran ODT] 4 mg SL Q6HR PRN tab.rapdis 08/30/18 [Rx] Thiamine (B-1) [Vitamin B-1] 100 mg PO DAILY tablet 08/30/18 [Rx] Trolamine Salicylate/Aloe Vera [Aspercreme 10%] 1 appl TP TID PRN tube 08/30/18 [Rx] Vitamin B Complex/Vit C/Vit E [Stresstab] 1 each PO DAILY tablet 08/30/18 [Rx] 3 Allergy/AdvReac Type Severity Reaction Status Date / Time No Known Allergies Allergy Verified 09/29/15 07:55 Review of Systems Psychiatric: Reports: depression, other Psychiatry Exam - Constitutional Vitals: Temp Pulse Resp BP Pulse Ox 98.0 F 82 18 152/99 99 10/08/18 07:30 10/08/18 11:36 10/08/18 11:36 10/08/18 11:36 10/08/18 11:36 General appearance: age & developmentally appropriate, well-groomed, well- nourished - Musculoskeletal Gait: normal Station: relaxed Strength & Tone: normal for patient - Psychiatric Patient Orientation: Yes Person, Yes Time, Yes Place Level of alertness: Alert Behavior: calm, cooperative Psychomotor activity: Normal Eye Contact: Maintains Eye Contact Mood Description: Anxious Affect description: congruent with mood, full range, anxious Speech Volume: Normal Speech pattern: normal rate, normal rhythm, normal tone, fluent, spontaneous Language & Vocabulary: consistent with education Thought Process: Linear, Goal Oriented Thought Content: No Suicidal ideation, No Homicidal ideation, No Overt delusions Perceptual Disturbances: No Auditory hallucinations, No Visual hallucinations Attention Span Ability: Capable of Focused Attention Memory Description: Grossly Intact Patient Reliability: Reliable Historian Fund of knowledge: Yes abstraction ability, Yes aware of current events Intelligence Estimate: Average Judgment: Fair Insight: Partial Results - Drug Levels and Toxicology Drug Levels and Toxicology: Drug Levels and Toxicity 10/07/18 10/07/18 10/07/18 11:50 16:08 19:50 Urine Opiates Screen Negative Ur Barbiturates Screen Negative Ur Phencyclidine Scrn Negative Ur Amphetamines Screen Negative U Benzodiazepines Scrn Positive H Urine Cocaine Screen Negative U Marijuana (THC) Screen Negative Ethyl Alcohol < 10 < 10 - Labs Labs: Laboratory Last Values WBC 5.5 K/mcL (4.3-11.1) 10/08/18 04:00 RBC 3.58 M/mcL (3.82-4.97) L 10/08/18 04:00 Hgb 10.9 g/dL (11.5-15.4) L 10/08/18 04:00 Hct 33.5 % (35.3-44.9) L 10/08/18 04:00 MCV 93.6 fL (83.0-100.0) 10/08/18 04:00 MCH 30.4 pg (28.0-33.3) 10/08/18 04:00 MCHC 32.5 g/dL (31.6-35.5) 10/08/18 04:00 RDW 13.3 % (11.5-14.5) 10/08/18 04:00 Plt Count 111 K/mcL (140-400) L 10/08/18 04:00 MPV 11.0 fL (9.4-12.4) 10/08/18 04:00 Immature Gran % 0.2 % (0-4) 10/08/18 04:00 Seg Neutrophils % 45.4 % 10/08/18 04:00 Lymphocytes % 45.1 % 10/08/18 04:00 Monocytes % 6.1 % 10/08/18 04:00 Eosinophils % 2.7 % 10/08/18 04:00 Basophils % 0.5 % 10/08/18 04:00 Neutrophils # 2.5 K/mcL (1.6-8.9) 10/08/18 04:00 Lymphocytes # 2.5 K/mcL (0.6-4.6) 10/08/18 04:00 Monocytes # 0.3 K/mcL (0.0-1.3) 10/08/18 04:00 Eosinophils # 0.2 K/mcL (0.0-0.6) 10/08/18 04:00 Basophils # 0.0 K/mcL (0.0-0.2) 10/08/18 04:00 ESR 6 mm/hr (0-15) 10/07/18 11:50 PT 11.8 Seconds (9.4-12.1) 10/08/18 04:00 INR 1.0 10/08/18 04:00 Sodium 136 mEq/L (136-145) 10/08/18 04:00 Potassium 3.9 mEq/L (3.5-5.1) 10/08/18 04:00 Chloride 108 mEq/L (98-107) H 10/08/18 04:00 Carbon Dioxide 20 mEq/L (23-29) L 10/08/18 04:00 BUN 8 mg/dL (6-20) 10/08/18 04:00 Creatinine 0.50 mg/dL (0.60-1.20) L 10/08/18 04:00 Est GFR ( Amer) > 60 (> 60) 10/08/18 04:00 Est GFR (Non-Af Amer) > 60 (> 60) 10/08/18 04:00 BUN/Creatinine Ratio 16 (6-26) 10/08/18 04:00 Glucose 117 mg/dL (70-105) H 10/08/18 04:00 Est Mean Plasma Glucose 100 mg/dl 10/08/18 04:00 Hemoglobin A1c 5.1 % (-5.6) 10/08/18 04:00 Calculated Osmolality 281 (280-300) 10/08/18 04:00 Calcium 9.0 mg/dL (8.6-10.3) 10/08/18 04:00 Phosphorus 3.5 mg/dL (2.7-4.5) 10/08/18 04:00 Magnesium 1.5 mg/dL (1.6-2.6) L 10/08/18 04:00 Total Bilirubin 1.2 mg/dL (0.3-1.0) H 10/07/18 11:50 AST 25 Units/L (13-39) 10/07/18 11:50 ALT 12 Units/L (7-52) 10/07/18 11:50 Alkaline Phosphatase 119 Units/L (34-104) H 10/07/18 11:50 Creatine Kinase 32 Units/L (30-223) 10/07/18 11:50 Troponin I < 0.03 ng/mL (< 0.04) 10/07/18 11:50 Serum Total Protein 6.8 g/dL (6.4-8.9) 10/07/18 11:50 Albumin 4.2 g/dL (3.5-5.7) 10/07/18 11:50 Globulin 2.6 g/dL (2.4-3.5) 10/07/18 11:50 Albumin/Globulin Ratio 1.6 (1.1-2.2) 10/07/18 11:50 Vitamin B12 482 pg/mL (250-1100) 10/08/18 04:00 Folate > 22.3 ng/mL (3.0-16.0) H 10/08/18 04:00 TSH 2.978 mcIU/mL (0.340-5.600) 10/08/18 04:00 Ur Specimen Adequacy See below A 10/07/18 12:00 Urine Color Dark Yellow (Yellow) 10/07/18 12:00 Urine Clarity Clear (Clear) 10/07/18 12:00 Urine pH 6.0 pH Units (5.0-8.0) 10/07/18 12:00 Ur Specific [place] 1.026 (1.010-1.025) H 10/07/18 12:00 Urine Protein 30 mg/dL (Neg-Trace) H 10/07/18 12:00 Urine Glucose (UA) Normal mg/dL (Normal) 10/07/18 12:00 Urine Ketones Trace mg/dL (Negative) H 10/07/18 12:00 Urine Blood Negative (Negative) 10/07/18 12:00 Urine Nitrite Negative (Negative) 10/07/18 12:00 Urine Bilirubin Small (Negative) H 10/07/18 12:00 Urine Urobilinogen Normal mg/dL (Normal) 10/07/18 12:00 Ur Leukocyte Esterase Small (Negative) H 10/07/18 12:00 Urine Microscopic RBC 0-3 per hpf (0-3) 10/07/18 12:00 Urine Microscopic WBC 5-15 per hpf (0-3) H 10/07/18 12:00 Ur Squamous Epith Cells Many per lpf (None-Few) H 10/07/18 12:00 Urine Bacteria Few per hpf (None-Few) 10/07/18 12:00 Hyaline Casts None Seen per lpf (None-Few) 10/07/18 12:00 Ur Culture Indicated? NO. (NO) A 10/07/18 12:00 Urine Opiates Screen Negative ng/mL (Cdkfug=959) 10/07/18 19:50 Ur Barbiturates Screen Negative ng/mL (Jhbdvc=317) 10/07/18 19:50 Ur Phencyclidine Scrn Negative ng/mL (Cutoff=25) 10/07/18 19:50 Ur Amphetamines Screen Negative ng/mL (Wvieun=3422) 10/07/18 19:50 U Benzodiazepines Scrn Positive ng/mL (Zxukjs=029) H 10/07/18 19:50 Urine Cocaine Screen Negative ng/mL (Cutoff= 300) 10/07/18 19:50 U Marijuana (THC) Screen Negative ng/mL (Cutoff = 50) 10/07/18 19:50 Ur Drug Screen Interp See Below 10/07/18 19:50 Ethyl Alcohol < 10 mg/dL (Less than 10) 10/07/18 16:08 Specimen Rejected MCV Delta 10/07/18 12:15 - Impressions Impressions Brain MRI 10/07/18 15:25 IMPRESSION: 1. No acute intracranial abnormality. 2. Mild chronic white matter microvascular ischemic changes. D/ / Haresh Oliver / Haresh Oliver Interpreting Provider: Haresh Oliver Cervical Spine MRI 10/07/18 15:25 IMPRESSION: 1. Motion limited evaluation. 2. No acute abnormality of the cervical spine. 3. Mild multilevel neural foraminal narrowing as detailed above. 4. No spinal canal stenosis. 5. 1.9 cm left thyroid nodule. Nonemergent follow-up thyroid ultrasound is recommended if not previously performed per guidelines below. RECOMMENDATIONS: 1.9 cm incidental thyroid nodule Recommend thyroid US. Reference: J Am Rg Radiol. 2015 Nov;12(2): 143-50 D/ / Haresh Oliver / Haresh Oliver Interpreting Provider: Haresh Oliver Lumbar Spine MRI 10/07/18 15:25 IMPRESSION: 1. Mild L3 superior endplate concavity with subjacent marrow edema is new since 09/29/2015 but unchanged from 08/15/2018 and suggests a subacute endplate fracture. 2. Emhv-cp-wabvbbsa multilevel degenerative changes. 3. No significant spinal canal stenosis. 4. Multilevel neural foraminal narrowing as detailed above and greatest involving the right L1 and right L5 neural foramina where it is severe. D/ / Haresh Oliver / Haresh Oliver Interpreting Provider: Haresh Oliver Thoracic Spine MRI 10/07/18 15:25 IMPRESSION: 1. No acute abnormality of the thoracic spine. 2. Mild multilevel degenerative disc disease with disc bulges causing mild spinal canal stenosis as above. D/ / Haresh Oliver / Haresh Oliver Interpreting Provider: Haresh Oliver Consult Discharge Plan - Plan Referrals: NONE,PCP [Primary Care Provider] -
[2018-10-08] MEDS: Thiamine (B-1) 100 MG, Folic Acid 1 MG, MVI, adult with vitamin K 10 ML in 0.9 % Sodi... IVPB SCH (16:25)
[2018-10-08] MEDS: *HR* Heparin 5,000 UNIT/ML VIAL SQ SCH (21:16)
[2018-10-09] MEDS: *HR* LORazepam 2 MG/ML VIAL IVP PRN (00:57)
[2018-10-09] MEDS: *HR* OxyCODONE Immed Rel 5 MG TABLET PO PRN ×3 (02:35→13:49)
[2018-10-09] MEDS: diazePAM 10 MG TABLET PO PRN (05:32)
[2018-10-09] MEDS: *HR* Heparin 5,000 UNIT/ML VIAL SQ SCH (05:32)
--- NOTE | 2018-10-09 08:09 | Internal Med Progress Note ---
<VeritoJoaquina N - Last Filed: 10/09/18 09:53> Hospitalist Progress Note - Encounter Date of Encounter: 10/09/18 Time of Encounter: 09:53 - Subjective Interval History: Patient seen and examined at bedside this morning. Patient is ambulating in the room without assistance. Gait is normal, not ataxic, shuffling, or weak. Patient states that she feels better, paresthesias improved. She has some residual numbness and tingling in her feet, however sensation is intact and gait is normal. No paresthesias in the hands. Patient complains that her opioid pain medications have been reduced while in the hospital and that she is exp eriencing lower back pain. Per psych recommendations patient has been started on Zoloft 50 mg daily. - Exam Vitals: Temp Pulse Resp BP Pulse Ox 98.0 F 98 15 140/96 99 10/09/18 03:46 10/09/18 03:46 10/09/18 03:46 10/09/18 03:46 10/09/18 03:46 Exam: Constitutional: Patient is alert and awake. No acute distress. Cardiovascular: Regular rate and rhythm, no murmurs. Respiratory: lungs are clear to auscultation in all lung rodriguez. Abdomen: Soft nontender, no guarding rigidity. No distention. Neurological: Cranial nerves II through XII are grossly intact. No facial asymmetry or changes in sensation. Speech is fluent. Upper extremity sensation is intact to light touch. Upper extremity strength 5 out of 5 bilaterally. Lower extremity strength is 5 out of 5, gait normal, no ataxia. Patellar reflex es 2+ bilaterally. Psych: Mildly anxious, coherent thought process, not altered Skin: clean, dry and intact. - Assessment and Plan (1) Paresthesias Current Visit: Yes Status: Acute Assessment and Plan: 58-year-old female who was admitted to the hospital with complaints of upper and lower extremity paresthesias associated with weakness. MRI negative, neurological consult did not recommend further testing. Symptoms drastically improved. Patient only complaining of slight paresthesias of the feet bilaterally. Vitamin B12 and folate not decreased. Possible that the patient's symptoms are secondary to psychiatric etiology as patient recently lost her a few months ago versus chronic alcoholism and opioid dependence. Plan: Continue zoloft 50mg Consult social services coordinator pending. PT/OT eval pending [facility] protocol (2) Weakness Current Visit: Yes Status: Acute Assessment and Plan: Patient initially complained of weakness worsening lower extremities and difficulty walking. Upon arrival to the room patient was standing without assistance and ambulating about the room without any gait disturbance. No ataxia or weakness noted. Patient states that her weakness and paresthesias h ave drastically improved since arrival to the hospital. Plan: PT/OT consult pending (3) Alcoholism Current Visit: No Status: Chronic Assessment and Plan: Continue [facility] protocol. (4) Cirrhosis Current Visit: No Status: Acute Assessment and Plan: mild hyperbilirubinemia, LFTs within range. normal INR. No encephalopathy. (5) Tobacco abuse Current Visit: No Status: Acute (6) Chronic back pain Current Visit: No Status: Acute Assessment and Plan: History of opioid dependence. Patient states she takes 10 mg oxycodone at home every 4 hours. (7) Anxiety Current Visit: No Status: Acute (8) DVT prophylaxis Current Visit: Yes Status: Acute Assessment and Plan: Continue EPCDs - Time Spent with Patient Total time spent is greater than 50% in coordination of care (as documented) at patient's floor/unit and/or counseling patient: Internal Medicine: Result - Labs CBC & Chem 7: 10/08/18 04:00 10/08/18 04:00 - ABG Interpretation ABG results: PT/INR, D-dimer PT 11.8 Seconds (9.4-12.1) 10/08/18 04:00 Consult Discharge Plan - Plan Referrals: NONE,PCP [Primary Care Provider] - <Ashley Amor - Last Filed: 10/09/18 12:21> Hospitalist Progress Note - Encounter Date of Encounter: 10/09/18 - Exam Vitals: Temp Pulse Resp BP Pulse Ox 97.3 F L 64 15 144/99 98 10/09/18 11:45 10/09/18 08:34 10/09/18 03:46 10/09/18 11:45 10/09/18 08:34 - Assessment and Plan (1) Alcoholism Current Visit: No Status: Chronic (2) Cirrhosis Current Visit: No Status: Acute (3) Tobacco abuse Current Visit: No Status: Acute (4) Chronic back pain Current Visit: No Status: Acute (5) Anxiety Current Visit: No Status: Acute (6) Paresthesias Current Visit: Yes Status: Acute (7) Weakness Current Visit: Yes Status: Acute (8) DVT prophylaxis Current Visit: Yes Status: Acute - Time Spent with Patient Total time spent is greater than 50% in coordination of care (as documented) at patient's floor/unit and/or counseling patient: Internal Medicine: Result - Labs CBC & Chem 7: 10/08/18 04:00 10/08/18 04:00 - ABG Interpretation ABG results: PT/INR, D-dimer PT 11.8 Seconds (9.4-12.1) 10/08/18 04:00 - Attending Attestation I examined this patient and my medical decision-making was reviewed with the Resident Physician Dr Sellers. I agree with the documented findings, disposition and treatment plan as described except to the extent set forth below. Ms Fischer is being observed for neuroapthy and generalzied weakness awake, denies weakness, numbness in feet only and denies any issues walking today. no headache, no cp, sob, fevers or chills gen- alert, awake,appears stated age eyes- pupils equal round cv- reg rate and rhythm, normal s1,s2, no murmurs appreciated, no le edema lungs- ctabl, no wheezing, rhonchi or crackles, normal resp effort on ra neuro- AAOx3, CN grossly intact, strength is 5/5 in all ext, sensation to lt touch intact and equal throughout BL weakness UE and LE, resolved without intervention BL UE and LE paresthesias, now localized to feet which is chronci in nature -after extensive work up without significant cause identified, and with neuro eval and rapid resolution of symptoms this appears to be more related to excessive grief and less likely a primary neurologic disorder including peridoic paralysis from hypokalemia (pt ahd sensory deficits as well and tsh wnl) -psych has seen pt and rec for zoloft reintiation, agree with 50 mg po daily, outtpt mental health resources to be provided to pt -pt rec for dc to home, no needs MRI of brain, C, T and L spines - degenerative disc disease and findings of ne uroforaminal narrowing but asymptomatic and if develops pain she can be evaluated with ortho as an outpatient. Hypomagnesemia- iv repletion today chronic thrombocytopenia, t bili and alk phos elevation- all stable/better than baseline etoh dependence, not in withdrawal- levels, ciwa, banana bag while inpt chronic pain- see Dr Kauffman at [place]- cont home med, no rx provided at dc anxiety/depression - hasn't taken zoloft in a month, restart at 50 mg daily,outpt up titration by pcp, pharm confirmed home valium 10 mg BID, outpt mental health, seen by psych this admit further diagnoses and treatment as noted by resident POWili- daughter- Althea Berry [phone] cell and [phone] home she my dc to home today <Joaquina Sellers N - Last Filed: 10/09/18 09:53> (4) Cirrhosis Qualifiers: Hepatic cirrhosis type: alcoholic cirrhosis Ascites presence: with ascites Qualified Code(s): K70.31 - Alcoholic cirrhosis of liver with ascites (6) Chronic back pain Qualifiers: Back pain location: back pain in unspecified location Back pain laterality: unspecified Qualified Code(s): M54.9 - Dorsalgia, unspecified; G89.29 - Other chronic pain <Ashley Amor M - Last Filed: 10/09/18 12:21> (2) Cirrhosis Qualifiers: Hepatic cirrhosis type: alcoholic cirrhosis Ascites presence: with ascites Qualified Code(s): K70.31 - Alcoholic cirrhosis of liver with ascites (4) Chronic back pain Qualifiers: Back pain location: back pain in unspecified location Back pain laterality: unspecified Qualified Code(s): M54.9 - Dorsalgia, unspecified; G89.29 - Other chronic pain
[2018-10-09] MEDS: Nicotine 7 MG PATCH.TD24 TD SCH (09:01)
[2018-10-09] MEDS ORDERED: Magnesium Sulfate 4 GM in 0.9 % Sodium Chloride 100 ML IVPB ONE (11:10)
[2018-10-09 11:46] VITALS: BP 144/99
--- NOTE | 2018-10-09 12:47 | Discharge Summary ---
<Joaquina Sellers N - Last Filed: 10/09/18 12:45> - NOTES TO OUTPATIENT PROVIDER Notes to Outpatient Provider: Continued out patient follow up for opioid and alcohol dependence. Titrate zoloft dose from 50mg to patients previous dose of 200mg. Continue to monitor for neurological symptoms, currently weakness and par asthesias have resolved. Orders not resulted at time of discharge: Pending orders 10/07/18 11:43 ECG 12 lead ECG [ECG] Stat Date of Encounter: 10/09/18 Time of Encounter: 12:45 - Discharge Diagnosis (1) Paresthesias Priority: Primary Status: Acute Assessment and Plan: 58-year-old female who was admitted to the hospital with complaints of upper and lower extremity paresthesias associated with weakness. MRI negative, neurological consult did not recommend further testing. Symptoms drastically improved. Patient only complaining of slight paresthesias of the feet bilaterally. Vitamin B12 and folate not decreased. Possible that the patient's symptoms are secondary to psychiatric etiology as patient recently lost her a few months ago versus chronic alcoholism and opioid dependence. Plan: Continue zoloft 50mg stable for d/c to home per PT. May require skilled OT services after her mentation/cognition have stabilized (2) Weakness Priority: Primary Status: Acute Assessment and Plan: Patient initially complained of weakness worsening lower extremities and difficulty walking. Today the patient was standing without assistance and ambulating about the room without any gait disturbance. No ataxia or weakness noted. Patient states that her weakness and paresthesias have drastically impr crow since arrival to the hospital. Plan: PT cleared patient for discharge to home (3) Alcoholism Priority: Secondary Status: Chronic Assessment and Plan: patient required ativan when she complained of being "shaky". no seizure activity. Patient was on CIWA protocol while in the hospital. Recommend alcohol cessation counseling and follow up. (4) Cirrhosis Priority: Secondary Status: Acute Assessment and Plan: mild hyperbilirubinemia, LFTs within range. Normal INR. No encephalopathy (5) Tobacco abuse Priority: Secondary Status: Acute (6) Chronic back pain Priority: Secondary Status: Acute Assessment and Plan: Concern for opioid dependence. Follow up with out patient management of patient's chronic pain. Qualifiers: Back pain location: back pain in unspecified location Back pain laterality: unspecified Qualified Code(s): M54.9 - Dorsalgia, unspecified; G89.29 - Other chronic pain (7) Anxiety Priority: Secondary Status: Acute (8) DVT prophylaxis Priority: Secondary Status: Acute Assessment and Plan: Maintained on EPCDs while in the hospital. Hospital course: Ms. Fischer is a 58 year old female who was admitted to the hospital with bilateral weakness in the upper and lower extremities as well as paresthesias. Her symptoms resolved without intervention while in the hospital. MRI studies were negative for any acute abnormality, evidence for degenerative disc disease and neuroforaminal narrowing were found and recommend follow up with outpatient orthopedic surgery. Evaluated by neurology and cleared. Psychiatry evaluated the patient and recommended restarting Zoloft at 50 mg and titrating up to patient's previous dose of 200mg. Recommend following up with mental health services as outpatient. No evidence for alcohol withdrawal while in the hospital but patient has history significant alcohol intake and cirrhosis. Patient's symptoms have returned to baseline, she is ambulating without difficulty. Paresthesias now only localized to the feet bilaterally. Safe to discharge home today. Patient cleared to discharge to home by PT. OT recommends establishing services when after her mental health concerns are managed. Discharge discussed with: patient - Time Spent with Patient Total time spent providing and/or coordinating discharge services: - Discharge Medications Prescriptions: Sertraline [Zoloft] 50 mg PO DAILY #20 tablet Home Medications: Rabeprazole Sodium [Aciphex] 20 mg PO DAILY 08/15/18 [History] Folic Acid 1 mg PO DAILY tablet 08/30/18 [Rx] Magnesium Oxide [Mag-Ox] 400 mg PO BID tablet 08/30/18 [Rx] Melatonin 3 mg PO HS PRN tablet 08/30/18 [Rx] Nicotine Patch [Nicoderm] 14 mg TD DAILY patch.td24 08/30/18 [Rx] Ondansetron ODT [Zofran ODT] 4 mg SL Q6HR PRN tab.rapdis 08/30/18 [Rx] Thiamine (B-1) [Vitamin B-1] 100 mg PO DAILY tablet 08/30/18 [Rx] Trolamine Salicylate/Aloe Vera [Aspercreme 10%] 1 appl TP TID PRN tube 08/30/18 [Rx] Vitamin B Complex/Vit C/Vit E [Stresstab] 1 each PO DAILY tablet 08/30/18 [Rx] Sertraline [Zoloft] 50 mg PO DAILY #20 tablet 10/09/18 [Rx] Allergies/Adverse Reactions: Allergy/AdvReac Type Severity Reaction Status Date / Time No Known Allergies Allergy Verified 09/29/15 07:55 Date of admission: 10/07/18 15:34 Primary care physician: PCP NONE Consults: 10/07/18 13:29 Consult to Neurology [CONS] Routine Consulting Provider: [facility] Reason for Consult: Inability to ambulate, clonus Call Completed: Yes 10/07/18 15:40 Consult to Health Care Marketing Specialist [CONS] Routine Reason for SW Consult: hx of alcohol abuse. does not take care of herself well at home. 10/07/18 16:17 Consult to Neurology [CONS] Stat Consulting Provider: [facility] Reason for Consult: symmetric bl sensory loss and profound weakness Time Notified: 16:20 Call Completed: Yes 10/07/18 17:08 Consult to Respiratory Therapy [CONS] Routine Reason for Consult: need forced vital capacity the rest of the night. needs done every 4 hours. Call Completed: Yes 10/08/18 11:04 Consult to Psychiatry [CONS] Routine Consulting Provider: [facility] Reason consult: Other Other reason and/or additional details: patient came in with numbness/tingling/weakness. on benzo at home for anxiety. significant history of alcohol abuse. suspect psychiatric cause of numbness/tingling secondary to depression. Her recently . need recs for titration of home medicatioins. Call Completed: Yes Discharging clinician: Joaquina Sellers Anticipated date of discharge: 10/09/18 - Constitutional Vitals: Temp Pulse Resp BP Pulse Ox 97.3 F L 64 15 144/99 98 10/09/18 11:45 10/09/18 08:34 10/09/18 03:46 10/09/18 11:45 10/09/18 08:34 General appearance: Present: A&O X 3, no acute distress Exam: Constitutional: Patient is alert and awake. No acute distress. Cardiovascular: Regular rate and rhythm, no murmurs. Respiratory: lungs are clear to auscultation in all lung rodriguez. Abdomen: Soft nontender, no guarding rigidity. No distention. Neurological: Cranial nerves II through XII are grossly intact. No facial asymmetry or changes in sensation. Speech is fluent. Upper extremity sensation is intact to light touch. Upper extremity strength 5 out of 5 bilaterally. Lower extremity strength is 5 out of 5, gait normal, no ataxia. Patellar reflexes 2+ bilaterally. Psych: Mildly anxious, coherent thought process, not altered Skin: clean, dry and intact. - Head Head exam: Present: atraumatic, normal inspection - Neck Neck exam general surgery: Present: full ROM, trachea midline - Respiratory Respiratory exam: Present: CTAB. Absent: wheezes - Cardiovascular Cardiovascular exam: Present: RRR, +S1, +S2 - GI/Abdominal GI/Abdominal exam: Present: soft. Absent: guarding, rigid, tenderness - Extremities Exam Extremities exam: Present: normal inspection - Expanded Neurological Exam Neurological exam expanded: Absent: ataxia Patient oriented to: Present: person, place, time Speech: Present: fluid speech Cranial Nerves: EOM's intact PM: Normal Sensory exam: lower extremity light touch: Normal, upper extremity light touch: Normal Neuro motor strength exam: LUE: 5, RUE: 5, LLE: 5, RLE: 5 DTR: patellar (L): 1+ Coma Scale Eye Opening: Spontaneous Coma Scale Motor Response: Obeys Commands Coma Scale Verbal Response: Oriented Coma Scale Total: 15 - Psychiatric Psychiatric exam: Present: normal affect, normal mood - Patient Status Disposition: Home, Self-Care Condition: Good Functional capacity at discharge: independent ambulation Overall status at discharge: patient is progressing back to baseline - Discharge Instructions Follow Up With: [facility] [Outside] Additional Instructions: Follow-up with your primary care provider for reevaluation. If you do not have a primary care provider a referral has been added to [facility]. Return to the emergency department if you develop any new changes in sensation or weakness. Return if you develop any confusion, changes in your speech, or facial drooping. Return if you develop chest pain, shortness of breath, nausea, vomiting, abdominal pain, diarrhea, or for any other new or concerning complaints. - Diet and Activity Activity: resume usual activities as tolerated Diet: advance to your usual diet <Ashley Amor - Last Filed: 10/09/18 13:52> - NOTES TO OUTPATIENT PROVIDER Notes to Outpatient Provider: RI studies were negative for any acute abnormality, evidence for degenerative disc disease and neuroforaminal narrowing were found and recommend follow up with outpatient orthopedic surgery should she develop symptoms. She may benefit from outpt OT services once she establishes some stability in home as per our OT team here. Orders not resulted at time of discharge: Pending orders 10/07/18 11:43 ECG 12 lead ECG [ECG] Stat Date of Encounter: 10/09/18 - Discharge Diagnosis (1) Alcoholism Status: Chronic (2) Cirrhosis Status: Acute Qualifiers: Hepatic cirrhosis type: alcoholic cirrhosis Ascites presence: unspecified Qualified Code(s): K70.30 - Alcoholic cirrhosis of liver without ascites (3) Tobacco abuse Status: Acute (4) Chronic back pain Status: Acute Qualifiers: Back pain location: back pain in unspecified location Back pain laterality: unspecified Qualified Code(s): M54.9 - Dorsalgia, unspecified; G89.29 - Other chronic pain (5) Anxiety Status: Acute (6) Paresthesias Status: Acute (7) Weakness Status: Acute (8) DVT prophylaxis Status: Acute Hospital course: Ms. Fischer is a 58 year old female - Time Spent with Patient Total time spent providing and/or coordinating discharge services: Greater than 30 minutes (40) Date of admission: 10/07/18 15:34 Primary care physician: PCP NONE Consults: 10/07/18 13:29 Consult to Neurology [CONS] Routine Consulting Provider: [facility] Reason for Consult: Inability to ambulate, clonus Call Completed: Yes 10/07/18 15:40 Consult to Health Care Marketing Specialist [CONS] Routine Reason for SW Consult: hx of alcohol abuse. does not take care of herself well at home. 10/07/18 16:17 Consult to Neurology [CONS] Stat Consulting Provider: [facility] Reason for Consult: symmetric bl sensory loss and profound weakness Time Notified: 16:20 Call Completed: Yes 10/07/18 17:08 Consult to Respiratory Therapy [CONS] Routine Reason for Consult: need forced vital capacity the rest of the night. needs done every 4 hours. Call Completed: Yes 10/08/18 11:04 Consult to Psychiatry [CONS] Routine Consulting Provider: [facility] Reason consult: Other Other reason and/or additional details: patient came in with numbness/tingling/weakness. on benzo at home for anxiety. significant history of alcohol abuse. suspect psychiatric cause of numbness/tingling secondary to depression. Her recently . need recs for titration of home medicatioins. Call Completed: Yes - Constitutional Vitals: Temp Pulse Resp BP Pulse Ox 97.3 F L 64 15 144/99 98 10/09/18 11:45 10/09/18 08:34 10/09/18 03:46 10/09/18 11:45 10/09/18 08:34 - Patient Status Overall status at discharge: patient is back to baseline - Diet and Activity Diet: other (avoid alcohol) - Attending Attestation I examined this patient and my medical decision-making was reviewed with the Resident Physician Dr Sellers. I agree with the documented findings, disposition and treatment plan as described except to the extent set forth below. Ms Fischer is being observed for neuroapthy and generalzied weakness awake, denies weakness, numbness in feet only and denies any issues walking today. no headache, no cp, sob, fevers or chills gen- alert, awake,appears stated age eyes- pupils equal round cv- reg rate and rhythm, normal s1,s2, no murmurs appreciated, no le edema lungs- ctabl, no wheezing, rhonchi or crackles, normal resp effort on ra neuro- AAOx3, CN grossly intact, strength is 5/5 in all ext, sensation to lt touch intact and equal throughout BL weakness UE and LE, resolved without intervention BL UE and LE paresthesias, now localized to feet which is chronci in nature -after extensive work up without significant cause identified, and with neuro eval and rapid resolution of symptoms this appears to be more related to excessive grief and less likely a primary neurologic disorder including peridoic paralysis from hypokalemia (pt ahd sensory deficits as well and tsh wnl) -psych has seen pt and rec for zoloft reintiation, agree with 50 mg po daily, outtpt mental health resources to be provided to pt -pt rec for dc to home, no needs MRI of brain, C, T and L spines - degenerative disc disease and findings of neuroforaminal narrowing but asymptomatic and if develops pain she can be evaluated with ortho as an outpatient. Hypomagnesemia- iv repletion today chronic thrombocytopenia, t bili and alk phos elevation- all stable/better than baseline etoh dependence, not in withdrawal- levels, ciwa, banana bag while inpt chronic pain- see Dr Kauffman at [facility]- cont home med, no rx provided at dc anxiety/depression - hasn't taken zoloft in a month, restart at 50 mg daily,outpt up titration by pcp, pharm confirmed home valium 10 mg BID, outpt mental health, seen by psych this admit further diagnoses and treatment as noted by resident she my dc to home today with pcp fu of note: med rec never updated by pharm to include her confirmed oxycodone and valium rxs- she has been instructed to cont these meds as rx on dc (they are marked as stop only bc no rx was given on dc) Addendum entered and electronically signed by Ashley Amor, DO 10/09/18 16:40: I have just been notified by pt nurse Taylor that while awaiting transportation to home she left the hospital prior to dc paperwork being reviewe d and had IV in place. Charge nurse and security were notified, however, no julien scott was called and no one can explain to me why. Of concern is that also at this time RN has notified me pt told her she was hearing satanic voices. As I was not made aware, nor my resident team, we did not have the opportunity to evaluate what she meant by these statements as we most certainly would have stopped discharge and had her re evaluated by psychiatry. Per RN at about 1430 pm pt lost iv access and required new iv for magnesium infusion. She had discussed with nurse that needles scare her and she was fearful for placement, making odd comments about the "silver needle" and if it would stay in her veins. She also told nurse she was bothered by sound of her tele monitor and said it was like satanic voices talking to her. Asked RN if she could like at her phone and try to help her get "a blue dot" (which RN described as a new maisha or notice that had popped up on the screen) off her phone bc it was watching her. Nurse notes she did not notify the team of these comments bc she was busy with a new admission, then by time she was done pt was gone. No julien scott was ever called. Nursing staff called the pt daughter who is an employee here and asked her to check and see if her mother was at home. I was notified via [employer] of pt being gone and behaviors demonstrated. She did not have VS instability or other symptoms to suggest this is related to acute etoh withdrawal. She did not withdraw while here, had a dose of ativan for what on speaking with pt sounded more to be anxiety. She has been seen by psychiatry this admission for anxiety/depression contributing to neurologic symptoms. They recommended she cont zoloft and fu outpt. SW saw pt approx 1400 and gave her resources for mental health/substance abuse resources in the area. I immediately contacted her daughter Althea and fully disclosed incident to her. She noted nursing had called her and asked her to see if her mother was ho me. She confirmed her mother was at home, that when she asked her about her IV she said she took it out before leaving hospital and put it in receptacle in room, and when asked why she left the hospital she said she was having a panic attack and just needed to get out of there so she hitchhiked home. We discussed her entire hospital course and that she had been set for discharge today but that if nursing had lmade me aware of her behavior/statements, she would ot have been discharged and would have been held for psych eval. I recommended at this time that attempts be made for pt to be brought back to ED for psych eval. She agrees , but pt would not likely come willingly to ED. I discussed with our security team here, who put me in touch with [facility], who put me in touch with [facility]. I spoke with officer there who will dispatch a branch lending officer to her confirmed home address for well check. I have communicated I believe she may have features of psychosis and would recommend she be brought to ED for psych eval. They will preform wellness check. I have called her daughter Althea back to update. She requests, given she is pt POA, that if she is brought back to ED she be notified. This is an unfortunate event and I profoundly apologized to pt daughter on our staff behalf that this incidence has occurred.
== END 2018-10-09 16:40 | disposition home or self-care (01) ==
LOC: EMEROOARM 11:34 → 3BNU 11:34 → 2NENU 16:44
PROVIDERS: ADMIT Internal Medicine; ATTEND Internal Medicine